=== PATIENT | female | born 1935 | race Caucasian/White ===

== ENCOUNTER → 2016-04-09 | Outpatient (CLI) | payer MEDICARE, BC ==
--- NOTE | 2016-04-10 10:43 | MM ---
Reason for exam: screening (asymptomatic). Last mammogram was performed 1 year and 1 month ago. History: Patient is postmenopausal and is nulliparous. Took estrogen for 21 years. Physical Findings: A clinical breast exam by your physician is recommended on an annual basis and results should be correlated with mammographic findings. MG Screening Mammo w CAD Bilateral CC and MLO view(s) were taken. Prior study comparison: March 21, 2015, bilateral MG 3d screening mammo w/cad. March 14, 2014, bilateral MG screening mammo w CAD. The breast tissue is heterogeneously dense. This may lower the sensitivity of mammography. Finding: There are typically benign calcifications. There is a chronic nodularity in the right breast. No significant changes in finding since March 21, 2015 and March 14, 2014. ASSESSMENT: Benign, BI-RAD 2 RECOMMENDATION: Routine screening mammogram of both breasts in 1 year.
== END | disposition home or self-care (01) ==
LOC: RADMAMWWP 13:51
PROVIDERS: ATTEND Family Medicine
DX: Z12.31 Encounter for screening mammogram for malignant neoplasm of breast (principal)

== ENCOUNTER → 2016-04-29 | Outpatient (CLI) | payer MEDICARE, BC ==
[2016-04-29 13:31] LABS: CH 30.2; CHCM 32.8; HCT 38.6 % (34.0-46.0); HDW 2.47; HGB 12.5 gm/dL (11.4-16.0); MCH 29.9 pg (25.0-35.0); MCHC 32.3 g/dL (31.0-37.0); MCV 92.6 fL (80.0-100.0); Mean Platelet Volume 9.6; RBC 4.17 m/uL (3.80-5.40); RDW 13.8 % (11.5-15.5); WBC 10.3 k/uL (3.8-10.6)
[2016-04-29 13:46] LABS: Appearance,Urine Clear (Clear); Bacteria,Urine Few /hpf; Bilirubin,Urine Negative (Negative); Glucose,Urine (UA) Negative (Negative); Ketones,Urine Negative (Negative); Leukocyte Esterase,Urine Large (Negative); Mucus,Urine Rare /hpf; Nitrite,Urine Negative (Negative); PH, Urine 5.5 (5.0-8.0); Particle Count 3304; Protein,Urine Trace (Negative); RBC,Urine 2 /hpf (0-5); Specific Gravity,Urine 1.012 (1.001-1.035); Squamous Epithelial Cell,Urine 1 /hpf (0-4); UA Billing (MACRO vs. MICRO) MICRO; Urobilinogen,Urine <2.0 mg/dL (<2.0); WBC,Urine 23 /hpf (0-5)
[2016-04-29 13:50] LABS: Anion Gap 12 mmol/L; Blood Urea Nitrogen 19 mg/dL (7-17); Calcium 9.8 mg/dL (8.4-10.2); Carbon Dioxide 27 mmol/L (22-30); Chloride 106 mmol/L (98-107); Glucose 107 mg/dL (74-99); Iron 57 ug/dL (37-170); Non-African American GFR(MDRD) 53 (>60 ml/min/1.73 sqM); Phosphorous 4.1 mg/dL (2.5-4.5); Potassium 4.7 mmol/L (3.5-5.1); Sodium 145 mmol/L (137-145); Uric Acid 6.8 mg/dL (3.7-7.4)
[2016-04-29 13:59] LABS: % Iron Saturation 16.3 % (20-50); Total Iron Binding Capacity 350 ug/dL (265-497)
== END | disposition home or self-care (01) ==
LOC: LABWHC1 12:41
PROVIDERS: ATTEND Nurse Practitioner Family
DX: N18.3 Chronic kidney disease, stage 3 (moderate) (principal); D64.9 Anemia, unspecified; N39.0 Urinary tract infection, site not specified; R80.9 Proteinuria, unspecified; E21.3 Hyperparathyroidism, unspecified; E55.9 Vitamin D deficiency, unspecified; M10.9 Gout, unspecified
CPT/HCPCS: 36415; 80048; 81001; 82043; 82306; 82728; 83540; 83550; 83735; 83970; 84100; 84550; 85027

== ENCOUNTER → 2016-12-02 | Outpatient (CLI) | payer MEDICARE, BC ==
--- NOTE | 2016-12-02 13:53 | US ---
EXAMINATION TYPE: US kidneys/renal and bladder DATE OF EXAM: 12/02/2016 COMPARISON: Prior in PACS CLINICAL HISTORY: N18.3 Stage 2 CKD. EXAM MEASUREMENTS: Right Kidney: 8.0 x 3.9 x 3.8 cm Left Kidney: 9.0 x 4.8 x 3.8 cm Right Kidney: Measuring smaller than the left. No hydronephrosis, no cystic or solid mass visualized Left Kidney: No hydronephrosis, no cystic or solid mass visualized Bladder: Not fully distended Bilateral Jets seen: No IMPRESSION: No evidence of hydronephrosis or nephrolithiasis. Cortical medullary differentiation is maintained wi th no cortical renal atrophy.
== END ==
LOC: RADUSWWP 12:56
PROVIDERS: ATTEND Internal Medicine
DX: N18.3 Chronic kidney disease, stage 3 (moderate) (principal)
CPT/HCPCS: 76770

== ENCOUNTER → 2017-05-19 | Outpatient (CLI) | payer MEDICARE, BC ==
--- NOTE | 2017-05-20 13:13 | MM ---
Reason for exam: screening (asymptomatic). Last mammogram was performed 1 year and 1 month ago. History: Patient is postmenopausal and is nulliparous. Took estrogen for 21 years. Physical Findings: A clinical breast exam by your physician is recommended on an annual basis and results should be correlated with mammographic findings. MG 3D Screening Mammo W/Cad Bilateral CC and MLO view(s) were taken. Prior study comparison: April 09, 2016, bilateral MG screening mammo w CAD. March 21, 2015, bilateral MG 3d screening mammo w/cad. The breast tissue is heterogeneously dense. This may lower the sensitivity of mammography. Stable benign calcifications. There is no discrete abnormality. No significant changes when compared with prior studies. ASSESSMENT: Benign, BI-RAD 2 RECOMMENDATION: Routine screening mammogram of both breasts in 1 year.
== END | disposition home or self-care (01) ==
LOC: RADMAMWWP 13:02
PROVIDERS: ATTEND Family Medicine
DX: Z12.31 Encounter for screening mammogram for malignant neoplasm of breast (principal)
CPT/HCPCS: 77063; 77067

== ENCOUNTER 2017-09-24 06:30 | Emergency (ER) | payer MEDICARE, BC ==
[2017-09-24 06:39] VITALS: RESP 18; TEMP 98
[2017-09-24 07:46] LABS: Basophils % (A) 0 %; Eosinophils # (A) 0.3 k/uL (0-0.7); Eosinophils % (A) 3 %; HCT 37.4 % (34.0-46.0); HGB 12.2 gm/dL (11.4-16.0); Lymphocytes # (A) 1.6 k/uL (1.0-4.8); Lymphocytes % (A) 15 %; MCH 31.8 pg (25.0-35.0); MCHC 32.5 g/dL (31.0-37.0); MCV 97.7 fL (80.0-100.0); Mean Platelet Volume 8.2; Monocytes # (A) 0.5 k/uL (0-1.0); Monocytes % (A) 5 %; Neutrophils # (A) 7.5 k/uL (1.3-7.7); Neutrophils % (A) 75 %; Platelet Count 241 k/uL (150-450); RBC 3.82 m/uL (3.80-5.40); RDW 13.7 % (11.5-15.5)
[2017-09-24 07:49] LABS: Appearance,Urine Clear (Clear); Bacteria,Urine Rare /hpf; Bilirubin,Urine Negative (Negative); Blood,Urine Negative (Negative); Color,Urine Light Yellow; Glucose,Urine (UA) Negative (Negative); Ketones,Urine Negative (Negative); Leukocyte Esterase,Urine Small (Negative); Mucus,Urine Rare /hpf; Nitrite,Urine Negative (Negative); Protein,Urine Negative (Negative); RBC,Urine <1 /hpf (0-5); Specific Gravity,Urine 1.007 (1.001-1.035); Squamous Epithelial Cell,Urine <1 /hpf (0-4); Urobilinogen,Urine <2.0 mg/dL (<2.0); WBC,Urine 1 /hpf (0-5)
[2017-09-24 07:57] LABS: Albumin 4.3 g/dL (3.5-5.0); Calcium 9.4 mg/dL (8.4-10.2); Potassium 4.7 mmol/L (3.5-5.1); Total Bilirubin 0.5 mg/dL (0.2-1.3); Total Protein 6.7 g/dL (6.3-8.2)
[2017-09-24] MEDS ORDERED: SODIUM CHLORIDE 0.9% 500 ML IV ONE (08:22)
--- NOTE | 2017-09-24 08:28 | ED ---
General Adult HPI - General Chief complaint: Upper Respiratory Infection Stated complaint: URI Time Seen by Provider: 09/24/17 07:07 Source: patient Mode of arrival: ambulatory Limitations: no limitations - History of Present Illness Initial comments: 82 years old female comes in with cold-like symptoms for last 34 days she said she has been coughing and she believes she had a cold but then now she was concerned about that she is not eating well she said she had one more water then she had a second third bottle of water which she didn't. Repeat she denies any headaches no neck stiffness no chest pain no shortness of breath no abdominal pain no flank pains. - Related Data Home Medications Medication Instructions Recorded Confirmed Levothyroxine Sodium [Synthroid] 112 mcg PO DAILY 01/08/14 09/24/17 Ranitidine HCl [Zantac] 150 mg PO BID 01/08/14 09/24/17 amLODIPine [Norvasc] 5 mg PO DAILY 01/08/14 09/24/17 Ascorbic Acid [Vitamin C] 500 mg PO DAILY 09/24/17 09/24/17 Aspirin EC [Ecotrin Low Dose] 81 mg PO DAILY 09/24/17 09/24/17 Carvedilol [Coreg] 12.5 mg PO BID 09/24/17 09/24/17 Cholecalciferol [Vitamin D3] 1,000 unit PO DAILY 09/24/17 09/24/17 Cyanocobalamin (Vitamin B-12) 1,000 mcg PO DAILY 09/24/17 09/24/17 [Vitamin B-12] Lisinopril [Zestril] 10 mg PO DAILY 09/24/17 09/24/17 Multivitamins, Thera [Multivitamin 1 tab PO DAILY 09/24/17 09/24/17 (formulary)] Pioglitazone [Actos] 15 mg PO DAILY 09/24/17 09/24/17 Pravastatin Sodium [Pravachol] 20 mg PO HS 09/24/17 09/24/17 Allergies Allergy/AdvReac Type Severity Reaction Status Date / Time orange juice Allergy Rash/Hives Verified 09/24/17 08:30 Sulfa (Sulfonamide Allergy Nausea & Verified 09/24/17 08:30 Antibiotics) Vomiting Review of Systems ROS Statement: Those systems with pertinent positive or pertinent negative responses have been documented in the HPI. ROS Other: All systems not noted in ROS Statement are negative. Past Medical History Past Medical History: Coronary Artery Disease (CAD), Diabetes Mellitus, GI Bleed , Hyperlipidemia, Hypertension, Thyroid Disorder History of Any Multi-Drug Resistant Organisms: None Reported Past Surgical History: Cholecystectomy, Hysterectomy Additional Past Surgical History / Comment(s): carotid artery Past Psychological History: No Psychological Hx Reported Smoking Status: Former smoker Past Alcohol Use History: Rare Past Drug Use History: None Reported General Exam - General Exam Comments Initial Comments: General: The patient is awake and alert, in no distress, and does not appear acutely ill. Skin: Skin is warm and dry and no rashes or lesions are noted. Eye: Pupils are equal, round and reactive to light, extra-ocular movements are intact; there is normal conjunctiva bilaterally. Ears, nose, mouth and throat: There are moist mucous membranes and no oral lesions. Neck: The neck is supple, there is no tenderness or JVD. Cardiovascular: There is a regular rate and rhythm. No murmur, rub or gallop is appreciated. Respiratory: To auscultation bilateral, no wheezing no rhonchi no distress respiratory du noticed Gastrointestinal: Soft, non-distended, non-tender abdomen without masses or organomegaly noted. There is no rebound or guarding present. Bowel sounds are unremarkable. Back: There is no tenderness to palpation in the midline. There is no obvious deformity. Musculoskeletal: Normal ROM, no tenderness, There is no pedal edema. There is no calf tenderness or swelling. No cords were appreciated. Neurological: CN II-XII intact, Cranial nerves III through XII are intact. There are no obvious motor or sensory deficits. Coordination appears grossly intact. Speech is normal. Psychiatric: Cooperative, appropriate mood & affect, normal judgment. Limitations: no limitations Course Vital Signs 09/24/17 06:34 Temperature 98 F Pulse Rate 70 Respiratory 18 Rate Blood Pressure 183/73 O2 Sat by Pulse 100 Oximetry KG revealed slightly elevated troponin 1.23 noticed blood pressure was elevated patient does see Dr. Lal he wanted to see Dr. Lal she was hydrated in the ER and was advised to drink enough fluids, her blood pressure was noted to be elevated she does take Norvasc and lisinopril and carvedilol she plans to take him and she gets home EKG Findings - EKG Comments: EKG Findings:: I am EKG is normal sinus rhythm ventricular rate 76 OR interval is 174 QRS duration is 72 QT/QTC 352/396. This EKG does not reveal any ST elevation or ST depression Medical Decision Making - Lab Data Result diagrams: 09/24/17 07:27 09/24/17 07:27 Lab Results 09/24/17 09/24/17 09/24/17 Range/Units 06:50 07:21 07:27 WBC 10.0 (3.8-10.6) k/uL RBC 3.82 (3.80-5.40) m/uL Hgb 12.2 (11.4-16.0) gm/dL Hct 37.4 (34.0-46.0) % MCV 97.7 (80.0-100.0) fL MCH 31.8 (25.0-35.0) pg MCHC 32.5 (31.0-37.0) g/dL RDW 13.7 (11.5-15.5) % Plt Count 241 (150-450) k/uL Neutrophils % 75 % Lymphocytes % 15 % Monocytes % 5 % Eosinophils % 3 % Basophils % 0 % Neutrophils # 7.5 (1.3-7.7) k/uL Lymphocytes # 1.6 (1.0-4.8) k/uL Monocytes # 0.5 (0-1.0) k/uL Eosinophils # 0.3 (0-0.7) k/uL Basophils # 0.0 (0-0.2) k/uL Sodium (137-145) mmol/L Potassium (3.5-5.1) mmol/L Chloride (98-107) mmol/L Carbon Dioxide (22-30) mmol/L Anion Gap mmol/L BUN (7-17) mg/dL Creatinine (0.52-1.04) mg/dL Est GFR (CKD-EPI)AfAm (>60 ml/min/1.73 sqM) Est GFR (CKD-EPI)NonAf (>60 ml/min/1.73 sqM) Glucose (74-99) mg/dL Calcium (8.4-10.2) mg/dL Total Bilirubin (0.2-1.3) mg/dL AST (14-36) U/L ALT (9-52) U/L Alkaline Phosphatase (38-126) U/L Total Protein (6.3-8.2) g/dL Albumin (3.5-5.0) g/dL Urine Color Light Yellow Urine Appearance Clear (Clear) Urine pH 5.0 (5.0-8.0) Ur Specific [place] 1.007 (1.001-1.035) Urine Protein Negative (Negative) Urine Glucose (UA) Negative (Negative) Urine Ketones Negative (Negative) Urine Blood Negative (Negative) Urine Nitrite Negative (Negative) Urine Bilirubin Negative (Negative) Urine Urobilinogen <2.0 (<2.0) mg/dL Ur Leukocyte Esterase Small H (Negative) Urine RBC <1 (0-5) /hpf Urine WBC 1 (0-5) /hpf Ur Squamous Epith Cells <1 (0-4) /hpf Urine Bacteria Rare H (None) /hpf Urine Mucus Rare H (None) /hpf Influenza Type A RNA Not Detected (Not Detectd) Influenza Type B (PCR) Not Detected (Not Detectd) 09/24/17 Range/Units 07:27 WBC (3.8-10.6) k/uL RBC (3.80-5.40) m/uL Hgb (11.4-16.0) gm/dL Hct (34.0-46.0) % MCV (80.0-100.0) fL MCH (25.0-35.0) pg MCHC (31.0-37.0) g/dL RDW (11.5-15.5) % Plt Count (150-450) k/uL Neutrophils % % Lymphocytes % % Monocytes % % Eosinophils % % Basophils % % Neutrophils # (1.3-7.7) k/uL Lymphocytes # (1.0-4.8) k/uL Monocytes # (0-1.0) k/uL Eosinophils # (0-0.7) k/uL Basophils # (0-0.2) k/uL Sodium 141 (137-145) mmol/L Potassium 4.7 (3.5-5.1) mmol/L Chloride 105 (98-107) mmol/L Carbon Dioxide 24 (22-30) mmol/L Anion Gap 12 mmol/L BUN 32 H (7-17) mg/dL Creatinine 1.23 H (0.52-1.04) mg/dL Est GFR (CKD-EPI)AfAm 48 (>60 ml/min/1.73 sqM) Est GFR (CKD-EPI)NonAf 41 (>60 ml/min/1.73 sqM) Glucose 120 H (74-99) mg/dL Calcium 9.4 (8.4-10.2) mg/dL Total Bilirubin 0.5 (0.2-1.3) mg/dL AST 18 (14-36) U/L ALT 30 (9-52) U/L Alkaline Phosphatase 75 (38-126) U/L Total Protein 6.7 (6.3-8.2) g/dL Albumin 4.3 (3.5-5.0) g/dL Urine Color Urine Appearance (Clear) Urine pH (5.0-8.0) Ur Specific [place] (1.001-1.035) Urine Protein (Negative) Urine Glucose (UA) (Negative) Urine Ketones (Negative) Urine Blood (Negative) Urine Nitrite (Negative) Urine Bilirubin (Negative) Urine Urobilinogen (<2.0) mg/dL Ur Leukocyte Esterase (Negative) Urine RBC (0-5) /hpf Urine WBC (0-5) /hpf Ur Squamous Epith Cells (0-4) /hpf Urine Bacteria (None) /hpf Urine Mucus (None) /hpf Influenza Type A RNA (Not Detectd) Influenza Type B (PCR) (Not Detectd) Disposition Clinical Impression: Renal insufficiency, Hypertension Disposition: HOME SELF-CARE Condition: Good Instructions: Chronic Kidney Disease (ED) Is patient prescribed a controlled substance at d/c from ED?: No Referrals: Mesfin Solis DO [Primary Care Provider] - 1-2 days America Lal MD [STAFF PHYSICIAN] - 1-2 days
--- NOTE | 2017-09-24 08:57 | XR ---
EXAMINATION TYPE: XR chest 2V DATE OF EXAM: 09/24/2017 COMPARISON: 01/08/2014 INDICATION: Pain TECHNIQUE: Frontal and lateral views of the chest are obtained. FINDINGS: The heart size is normal. The pulmonary vasculature is normal. The lungs are clear. IMPRESSION: 1. No acute pulmonary process.
[2017-09-24 10:11] VITALS: BP 161/70; PULSE 69
== END 2017-09-24 10:11 | disposition home or self-care (01) ==
LOC: EC 06:30
DX: I10 Essential (primary) hypertension (principal); N28.9 Disorder of kidney and ureter, unspecified; I25.10 Atherosclerotic heart disease of native coronary artery without angina pectoris; E11.9 Type 2 diabetes mellitus without complications; E78.5 Hyperlipidemia, unspecified; E07.9 Disorder of thyroid, unspecified; Z79.82 Long term (current) use of aspirin; Z79.02 Long term (current) use of antithrombotics/antiplatelets; Z79.84 Long term (current) use of oral hypoglycemic drugs; Z79.899 Other long term (current) drug therapy; Z91.018 Allergy to other foods; Z88.2 Allergy status to sulfonamides; Z87.891 Personal history of nicotine dependence
CPT/HCPCS: 36415; 71046; 80053; 81001; 85025; 87502; 93005; 96360; 99284

== ENCOUNTER → 2018-05-24 | Outpatient (CLI) | payer MEDICARE, BC ==
--- NOTE | 2018-05-25 08:44 | MM ---
Reason for exam: screening (asymptomatic). Last mammogram was performed 1 year ago. History: Patient is postmenopausal and is nulliparous. Took estrogen for 21 years. Physical Findings: A clinical breast exam by your physician is recommended on an annual basis and results should be correlated with mammographic findings. MG 3D Screening Mammo W/Cad Bilateral CC and MLO view(s) were taken. Prior study comparison: May 19, 2017, bilateral MG 3d screening mammo w/cad. April 09, 2016, bilateral MG screening mammo w CAD. The breast tissue is heterogeneously dense. This may lower the sensitivity of mammography. There are benign appearing round circumscribed right breast masses back to 2013. Benign appearing bilateral calcifications. No suspicious abnormality. No significant changes when compared with prior studies. ASSESSMENT: Benign, BI-RAD 2 RECOMMENDATION: Routine screening mammogram of both breasts in 1 year.
== END ==
LOC: RADMAMWWP 11:27
PROVIDERS: ATTEND Family Medicine
DX: Z12.31 Encounter for screening mammogram for malignant neoplasm of breast (principal)
CPT/HCPCS: 77063; 77067

== ENCOUNTER → 2018-05-25 | Outpatient (CLI) | payer MEDICARE, BC ==
--- NOTE | 2018-05-25 16:30 | US ---
EXAMINATION TYPE: US kidneys/renal and bladder DATE OF EXAM: 05/25/2018 COMPARISON: 07/21/2017 CLINICAL HISTORY: N18.3 CKD stage 3. Diabetic, patient states no pain EXAM MEASUREMENTS: Right Kidney: 8.2 x 3.9 x 4.1 cm Left Kidney: 8.9 x 3.7 x 5.0 cm Right Kidney: Medial anechoic lesion seen at hilum - 1.6 x 0.8 cm. Nonshadowing echogenic focus visu alized = 0.6 cm. This was not identified previously. Kidney Appears small in size. Left Kidney: Appears small in size. No hydronephrosis or masses seen. Bladder: distended, wnl Bilateral Jets seen IMPRESSION: 1. Echogenic foci without hydronephrosis right kidney may be a nonobstructing renal stone within the renal pelvis..
== END | disposition home or self-care (01) ==
LOC: RADUSWWP 14:53
PROVIDERS: ATTEND Internal Medicine Nephrology
DX: N18.3 Chronic kidney disease, stage 3 (moderate) (principal)
CPT/HCPCS: 76770

== ENCOUNTER 2018-09-20 20:45 | Inpatient (IN) | payer MEDICARE, BC ==
[2018-09-20] MEDS ORDERED: MORPHINE SULFATE 4 MG/ML SYRINGE IV STA (21:27)
--- NOTE | 2018-09-20 21:31 | ED ---
Fall HPI - General Chief Complaint: Fall Stated Complaint: Fall, Back Pain Time Seen by Provider: 09/20/18 21:12 Source: patient, EMS Mode of arrival: EMS - History of Present Illness Initial Comments: This patient is an 83-year-old woman who presents to be evaluated for back inj ury. She states it feels like her back went out. The initial injury was a fall that occurred on Wednesday. She states that she lost her balance and went down onto her buttocks. She initially had a little bit of pain but it was not severe. She states on the following day and an thereafter she started having severe pain any time she tried to get up. She therefore has not been moving around much. She indicates the low back. She does not have any radiation of pain to the legs. There is no weakness of the legs. She denies any change in bladder or bowel function. No other injuries in the fall. MD Complaint: fall -: days(s) Fall From: standing When Fall Occurred: # days [employer] (3) Place Fall Occurred: home Loss of Consciousness: none Prolonged Down Time?: no Symptoms Prior to Fall: none Location: back Severity: severe Quality: sharp Context: tripped/slipped - Related Data Home Medications Medication Instructions Recorded Confirmed Levothyroxine Sodium [Synthroid] 112 mcg PO DAILY 01/08/14 09/20/18 Ranitidine HCl [Zantac] 150 mg PO BID 01/08/14 09/20/18 amLODIPine [Norvasc] 5 mg PO DAILY 01/08/14 09/20/18 Aspirin EC [Ecotrin Low Dose] 81 mg PO DAILY 09/24/17 09/20/18 Carvedilol [Coreg] 12.5 mg PO BID 09/24/17 09/20/18 Cyanocobalamin (Vitamin B-12) 1,000 mcg PO DAILY 09/24/17 09/20/18 [Vitamin B-12] Lisinopril [Zestril] 10 mg PO DAILY 09/24/17 09/20/18 Pioglitazone [Actos] 15 mg PO DAILY 09/24/17 09/20/18 Atorvastatin [Lipitor] 20 mg PO HS 09/20/18 09/20/18 Previous Rx's Medication Instructions Recorded Methocarbamol [Robaxin-750] 750 mg PO TID PRN #30 tablet 09/21/18 Allergies Allergy/AdvReac Type Severity Reaction Status Date / Time orange juice Allergy Rash/Hives Verified 09/24/17 08:30 Sulfa (Sulfonamide Allergy Nausea & Verified 09/24/17 08:30 Antibiotics) Vomiting Review of Systems ROS Statement: Those systems with pertinent positive or pertinent negative responses have been documented in the HPI. ROS Other: All systems not noted in ROS Statement are negative. Constitutional: Denies: fever, chills Respiratory: Denies: cough, dyspnea Cardiovascular: Denies: chest pain, palpitations, syncope Gastrointestinal: Denies: abdominal pain, vomiting, diarrhea, constipation Genitourinary: Denies: dysuria, hematuria Musculoskeletal: Reports: back pain Skin: Denies: rash Neurological: Denies: headache, weakness, numbness, paresthesias Past Medical History Past Medical History: Coronary Artery Disease (CAD), Diabetes Mellitus, GI Bleed, Hyperlipidemia, Hypertension, Thyroid Disorder History of Any Multi-Drug Resistant Organisms: None Reported Past Surgical History: Cholecystectomy, Hysterectomy Additional Past Surgical History / Comment(s): carotid artery Past Psychological History: No Psychological Hx Reported Smoking Status: Former smoker Past Alcohol Use History: Rare Past Drug Use History: None Reported General Exam General appearance: alert, in no apparent distress Head exam: Present: atraumatic, normocephalic Eye exam: Present: normal appearance. Absent: scleral icterus, conjunctival injection Neck exam: Present: normal inspection, full ROM. Absent: tenderness Respiratory exam: Present: normal lung sounds bilaterally. Absent: respiratory distress, wheezes, rales, rhonchi, stridor, chest wall tenderness Cardiovascular Exam: Present: regular rate, normal rhythm, normal heart sounds. Absent: systolic murmur, diastolic murmur, rubs, gallop GI/Abdominal exam: Present: soft. Absent: distended, tenderness, guarding, rebound, rigid, mass Neurological exam: Present: alert, oriented X3. Absent: motor sensory deficit Skin exam: Present: warm, dry, intact, normal color. Absent: rash Course Vital Signs 09/20/18 09/20/18 09/20/18 20:51 21:00 21:10 Temperature 98.2 F Pulse Rate 68 71 71 Respiratory 16 23 15 Rate Blood Pressure 186/89 179/77 O2 Sat by Pulse 94 L 91 L 93 L Oximetry 09/20/18 09/20/18 09/20/18 21:50 22:10 22:40 Temperature Pulse Rate 71 67 70 Respiratory 15 17 15 Rate Blood Pressure 154/62 146/47 159/69 O2 Sat by Pulse 93 L 95 93 L Oximetry 09/21/18 03:10 Temperature Pulse Rate Respiratory 16 Rate Blood Pressure O2 Sat by Pulse Oximetry Medical Decision Making - Medical Decision Making During the patient's stay in the department, she initially began to have some episodes of loose bowel movements. Patient stated that she had taken a stool softener before coming here. Patient continued to have nausea and some vomiting and bowel movements. The patient did not have relief with medications will be admitted for control of vomiting. - Lab Data Result diagrams: 09/20/18 21:47 09/20/18 21:47 Lab Results 09/20/18 09/20/18 09/21/18 Range/Units 21:47 21:47 01:09 WBC 11.0 H (3.8-10.6) k/uL RBC 3.99 (3.80-5.40) m/uL Hgb 12.3 (11.4-16.0) gm/dL Hct 38.2 (34.0-46.0) % MCV 95.9 (80.0-100.0) fL MCH 30.8 (25.0-35.0) pg MCHC 32.1 (31.0-37.0) g/dL RDW 13.6 (11.5-15.5) % Plt Count 352 (150-450) k/uL Neutrophils % 71 % Lymphocytes % 18 % Monocytes % 8 % Eosinophils % 2 % Basophils % 0 % Neutrophils # 7.9 H (1.3-7.7) k/uL Lymphocytes # 2.0 (1.0-4.8) k/uL Monocytes # 0.8 (0-1.0) k/uL Eosinophils # 0.2 (0-0.7) k/uL Basophils # 0.0 (0-0.2) k/uL Sodium 138 (137-145) mmol/L Potassium 4.4 (3.5-5.1) mmol/L Chloride 101 (98-107) mmol/L Carbon Dioxide 28 (22-30) mmol/L Anion Gap 9 mmol/L BUN 27 H (7-17) mg/dL Creatinine 0.94 (0.52-1.04) mg/dL Est GFR (CKD-EPI)AfAm 66 (>60 ml/min/1.73 sqM) Est GFR (CKD-EPI)NonAf 57 (>60 ml/min/1.73 sqM) Glucose 165 H (74-99) mg/dL POC Glucose (mg/dL) 160 H (75-99) mg/dL POC Glu [place] [employer]man ID Carmine Parks Calcium 9.3 (8.4-10.2) mg/dL Total Bilirubin 0.5 (0.2-1.3) mg/dL AST 25 (14-36) U/L ALT 25 (9-52) U/L Alkaline Phosphatase 98 (38-126) U/L Creatine Kinase 87 (30-135) U/L Total Protein 7.3 (6.3-8.2) g/dL Albumin 4.3 (3.5-5.0) g/dL 09/21/18 Range/Units 06:35 WBC (3.8-10.6) k/uL RBC (3.80-5.40) m/uL Hgb (11.4-16.0) gm/dL Hct (34.0-46.0) % MCV (80.0-100.0) fL MCH (25.0-35.0) pg MCHC (31.0-37.0) g/dL RDW (11.5-15.5) % Plt Count (150-450) k/uL Neutrophils % % Lymphocytes % % Monocytes % % Eosinophils % % Basophils % % Neutrophils # (1.3-7.7) k/uL Lymphocytes # (1.0-4.8) k/uL Monocytes # (0-1.0) k/uL Eosinophils # (0-0.7) k/uL Basophils # (0-0.2) k/uL Sodium (137-145) mmol/L Potassium (3.5-5.1) mmol/L Chloride (98-107) mmol/L Carbon Dioxide (22-30) mmol/L Anion Gap mmol/L BUN (7-17) mg/dL Creatinine (0.52-1.04) mg/dL Est GFR (CKD-EPI)AfAm (>60 ml/min/1.73 sqM) Est GFR (CKD-EPI)NonAf (>60 ml/min/1.73 sqM) Glucose (74-99) mg/dL POC Glucose (mg/dL) 144 H (75-99) mg/dL POC Glu [place] [employer]man ID Shalini Garner Calcium (8.4-10.2) mg/dL Total Bilirubin (0.2-1.3) mg/dL AST (14-36) U/L ALT (9-52) U/L Alkaline Phosphatase (38-126) U/L Creatine Kinase (30-135) U/L Total Protein (6.3-8.2) g/dL Albumin (3.5-5.0) g/dL Disposition Clinical Impression: Fall, Back pain, Diarrhea, Intractable vomiting Disposition: ADMITTED IP TO THIS HOSP Condition: Fair Is patient prescribed a controlled substance at d/c from ED?: No
[2018-09-20 21:56] LABS: Basophils % (A) 0 %; Eosinophils # (A) 0.2 k/uL (0-0.7); Eosinophils % (A) 2 %; HCT 38.2 % (34.0-46.0); HGB 12.3 gm/dL (11.4-16.0); Lymphocytes % (A) 18 %; MCH 30.8 pg (25.0-35.0); MCHC 32.1 g/dL (31.0-37.0); MCV 95.9 fL (80.0-100.0); Mean Platelet Volume 8.2; Monocytes # (A) 0.8 k/uL (0-1.0); Monocytes % (A) 8 %; Neutrophils # (A) 7.9 k/uL (1.3-7.7); Neutrophils % (A) 71 %; Platelet Count 352 k/uL (150-450); RBC 3.99 m/uL (3.80-5.40); RDW 13.6 % (11.5-15.5)
--- NOTE | 2018-09-20 21:56 | XR ---
EXAMINATION TYPE: XR pelvis AP view DATE OF EXAM: 09/20/2018 COMPARISON: NONE HISTORY: Fall. Pain. TECHNIQUE: Single view FINDINGS: The pelvic ring appears intact. Proximal femurs are intact. There is vascular calcification . Sacroiliac joints are intact. IMPRESSION: No acute abnormality of the pelvis.
--- NOTE | 2018-09-20 21:57 | XR ---
EXAMINATION TYPE: XR lumbar spine 2 or 3V DATE OF EXAM: 09/20/2018 COMPARISON: NONE HISTORY: Fall. Back pain. TECHNIQUE: 3 views FINDINGS: Lumbar vertebra have fairly normal alignment. There is degenerative disc space narrowing th roughout the lumbar spine. There is no compression fracture. Abdominal aorta is atheromatous. Sacroil iac joints are intact. IMPRESSION: Mild degenerative disc changes. No fracture.
--- NOTE | 2018-09-20 21:59 | XR ---
EXAMINATION TYPE: XR thoracic spine complete DATE OF EXAM: 09/20/2018 COMPARISON: 01/08/2014 HISTORY: Back pain TECHNIQUE: 3 views FINDINGS: Thoracic vertebra have normal alignment. I see no compression fracture. There is no sign of paraspinal mass. Posterior elements are intact. IMPRESSION: Negative exam. No change compared to old exam. No fracture.
[2018-09-20 22:05] LABS: Albumin 4.3 g/dL (3.5-5.0); Calcium 9.3 mg/dL (8.4-10.2); Potassium 4.4 mmol/L (3.5-5.1); Total Bilirubin 0.5 mg/dL (0.2-1.3); Total Protein 7.3 g/dL (6.3-8.2)
--- NOTE | 2018-09-20 23:27 | XR ---
EXAM: XR Chest, 2 Views CLINICAL HISTORY: Pain TECHNIQUE: Frontal and lateral views of the chest. COMPARISON: No relevant prior studies available. FINDINGS: Lungs: Unremarkable. No consolidation. Pleural space: Unremarkable. No pneumothorax. Heart: Mild enlargement heart. Mediastinum: Unremarkable. Bones/joints: Degenerative changes of the osseous structures. IMPRESSION: No acute findings.
[2018-09-20] MEDS ORDERED: ONDANSETRON 4 MG/2 ML VIAL IVP STA (23:44)
[2018-09-21 01:11] LABS: Glucose,Whole Blood 160 mg/dL (75-99)
[2018-09-21] MEDS ORDERED: NALOXONE 0.4 MG/ML 1 ML VIAL IV PRN (02:43)
[2018-09-21] MEDS ORDERED: SODIUM CHLORIDE 0.9% 1,000 ML IV SCH (02:45)
[2018-09-21] MEDS ORDERED: PROCHLORPERAZINE 10 MG TAB PO STA (02:45)
[2018-09-21 03:37] VITALS: BMI 28.7
[2018-09-21 06:36] LABS: Glucose,Whole Blood 144 mg/dL (75-99)
[2018-09-21 11:37] LABS: Glucose,Whole Blood 136 mg/dL (75-99)
[2018-09-21] MEDS ORDERED: ONDANSETRON 4 MG/2 ML VIAL IVP PRN (13:19)
[2018-09-21] MEDS ORDERED: LEVOTHYROXINE 112 MCG TAB PO SCH (13:30)
[2018-09-21] MEDS ORDERED: ASPIRIN 81 MG PO SCH (13:30)
[2018-09-21] MEDS ORDERED: FAMOTIDINE 20 MG TAB PO SCH ×2 (13:30→14:00)
[2018-09-21] MEDS ORDERED: amLODIPine 5 MG TAB PO SCH (13:30)
[2018-09-21 16:41] LABS: Glucose,Whole Blood 138 mg/dL (75-99)
[2018-09-21 16:43] VITALS: BP 159/70; PULSE 69; RESP 18; TEMP 98.6
[2018-09-21] MEDS ORDERED: CARVEDILOL 12.5 MG TAB PO SCH (17:30)
[2018-09-21] MEDS ORDERED: ATORVASTATIN 20 MG TAB PO SCH (21:00)
[2018-09-22] MEDS ORDERED: CYANOCOBALAMIN 500 MCG TAB PO SCH (09:00)
[2018-09-22] MEDS ORDERED: LISINOPRIL 10 MG TAB PO SCH (09:00)
[2018-09-22] MEDS ORDERED: PIOGLITAZONE 15 MG TAB PO SCH (09:00)
--- NOTE | 2018-09-23 16:33 | P.HPIM ---
History of Present Illness H&P Date: 09/21/18 Chief Complaint: Back pain Patient is a 83-year-old female with a known history of hypertension, hyperlipidemia, diabetes type 2 and hypothyroidism came to the hospital with the complaints of fall and back injury. Patient says that she lost her balance and went down on her buttocks mainly right buttock. Since then she's been having sharp pain. She's been having pain whenever she tries to get up and has not been moving much. No radiation of the pain no shooting down pain along the extremities. No weakness. No bowel or bladder incontinence. No perineal anesthesia. No fever no chills. Patient came to the hospital due to disabling pain. Chest x-ray showed no acute findings neck X-ray of the pelvis AP view showed no acute abnormality of the pelvis. X-ray of the lumbar spine showed mild degenerative disc changes. No fractures. X-ray thoracic spine showed no changes compared to old exam. No fracture. WBC 11.7 and BUN 27 creatinine within normal limits. All other laboratory data reviewed. Review of Systems Constitutional: Patient denies any fever or chills . No generalized weakness or weight loss. Abdomen: Patient denied nausea vomiting and diarrhea and abdominal pain. Cardiovascular: Patient denies any chest pain or short of breath no palpitations. Respiratory: patient denied any cough is from production. No shortness of breath Neurologic: Patient denied any numbness or tingling headache. Musculoskeletal: Patient denies any complaints of joint swelling or deformity. Lower back pain and sacral pain and right buttock pain. Skin: Negative Psychiatric: Negative Endocrine: No heat or cold intolerance. No recent weight gain. Genitourinary: No dysuria or hematuria. All other 14 point ROS negative except the above Past Medical History Past Medical History: Coronary Artery Disease (CAD), Diabetes Mellitus, GI Bleed, Hyperlipidemia, Hypertension, Thyroid Disorder History of Any Multi-Drug Resistant Organisms: None Reported Past Surgical History: Cholecystectomy, Hysterectomy Additional Past Surgical History / Comment(s): carotid artery Past Anesthesia/Blood Transfusion Reactions: No Reported Reaction Past Psychological History: No Psychological Hx Reported Smoking Status: Former smoker Past Alcohol Use History: Rare Past Drug Use History: None Reported Medications and Allergies Home Medications Medication Instructions Recorded Confirmed Type Levothyroxine Sodium [Synthroid] 112 mcg PO DAILY 01/08/14 09/20/18 History Ranitidine HCl [Zantac] 150 mg PO BID 01/08/14 09/20/18 History amLODIPine [Norvasc] 5 mg PO DAILY 01/08/14 09/20/18 History Aspirin EC [Ecotrin Low Dose] 81 mg PO DAILY 09/24/17 09/20/18 History Carvedilol [Coreg] 12.5 mg PO BID 09/24/17 09/20/18 History Cyanocobalamin (Vitamin B-12) 1,000 mcg PO DAILY 09/24/17 09/20/18 History [Vitamin B-12] Lisinopril [Zestril] 10 mg PO DAILY 09/24/17 09/20/18 History Pioglitazone [Actos] 15 mg PO DAILY 09/24/17 09/20/18 History Atorvastatin [Lipitor] 20 mg PO HS 09/20/18 09/20/18 History Methocarbamol [Robaxin-750] 750 mg PO TID PRN #30 tablet 09/21/18 Rx Allergies Allergy/AdvReac Type Severity Reaction Status Date / Time orange juice Allergy Rash/Hives Verified 09/24/17 08:30 Sulfa (Sulfonamide Allergy Nausea & Verified 09/24/17 08:30 Antibiotics) Vomiting Physical Exam Vitals: Vital Signs Temp Pulse Pulse Resp BP BP Pulse Ox 09/21/18 12:00 70 16 09/21/18 08:00 97.7 F 70 16 163/79 96 09/21/18 03:37 17 09/21/18 03:10 16 09/20/18 22:40 70 15 159/69 93 L 09/20/18 22:10 67 17 146/47 95 09/20/18 21:50 71 15 154/62 93 L 09/20/18 21:10 71 15 179/77 93 L 09/20/18 21:00 71 23 91 L 09/20/18 20:51 98.2 F 68 16 186/89 94 L Intake and Output 09/20/18 09/21/18 09/21/18 22:59 06:59 14:59 Other: Voiding Method Toilet Toilet Diaper Diaper Incontinent # Voids 1 1 Weight 71.2 kg PHYSICAL EXAMINATION: Patient is lying in the bed comfortably, no acute distress, awake alert and oriented.. HEENT: Normocephalic. Neck is supple. Pupils reactive. Nostrils clear. Oral cavity is moist. Ears reveal no drainage. Neck reveals no JVD, carotid bruits, or thyromegaly. CHEST EXAMINATION: Trachea is central. Symmetrical expansion. Lung carroll clear to auscultation and percussion. CARDIAC: Normal S1, S2 with no gallops. No murmurs ABDOMEN: Soft. Bowel sounds normal. No organomegaly. No abdominal bruits. Extremities: reveal no edema. No clubbing or cyanosis Neurologically awake, alert, oriented x3 with well-coordinated movements. No focal deficits noted Skin: No rash or skin lesions. Psychiatric: Coperative. Nonsuicidal Musculoskeletal: No joint swelling or deformity. Normal range of motion. Results CBC & Chem 7: 09/20/18 21:47 09/20/18 21:47 Labs: Abnormal Lab Results - Last 24 Hours (Table) 09/20/18 09/20/18 09/21/18 Range/Units 21:47 21:47 01:09 WBC 11.0 H (3.8-10.6) k/uL Neutrophils # 7.9 H (1.3-7.7) k/uL BUN 27 H (7-17) mg/dL Glucose 165 H (74-99) mg/dL POC Glucose (mg/dL) 160 H (75-99) mg/dL 09/21/18 09/21/18 Range/Units 06:35 11:33 WBC (3.8-10.6) k/uL Neutrophils # (1.3-7.7) k/uL BUN (7-17) mg/dL Glucose (74-99) mg/dL POC Glucose (mg/dL) 144 H 136 H (75-99) mg/dL Thrombosis Risk Factor Assmnt - DVT/VTE Prophylaxis DVT/VTE Prophylaxis: Pharmacologic Prophylaxis ordered - Choose All That Apply Each Risk Factor Represents 3 Points: Age 75 years or older Thrombosis Risk Factor Assessment Total Risk Factor Score: 3 Thrombosis Risk Factor Assessment Level: Moderate Risk Assessment and Plan Assessment: Lower back and bilateral buttock pain mainly right buttock pain. Status post fall. Likely muscle contusion. No fracture noted Coronary artery disease History of carotid artery surgery Diabetes type 2 Hypertension next and hypothyroidism Previous history of smoking DVT prophylaxis with heparin subcu Plan: patient be continued on pain management. Continue the home medications and follow closely. Encourage incentive spirometry. Ambulation and DVT pro phylaxis. Further recommendations based on the clinical course. Time with Patient: Greater than 30
--- NOTE | 2018-09-23 16:35 | P.DS ---
Providers Date of admission: 09/21/18 06:48 Expected date of discharge: 09/21/18 Attending physician: Thania Nathan Primary care physician: [facility] Course: Discharge diagnosis Lower back and bilateral buttock pain mainly right buttock pain. Status post fall. Likely muscle contusion. No fracture noted Coronary artery disease History of carotid artery surgery Diabetes type 2 Hypertension next and hypothyroidism Previous history of smoking DVT prophylaxis with heparin subcu Hospital course Patient is a 83-year-old female with a known history of hypertension, hyperlipidemia, diabetes type 2 and hypothyroidism came to the hospital with the complaints of fall and back injury. Patient says that she lost her balance and went down on her buttocks mainly right buttock. Since then she's been having sharp pain. She's been having pain whenever she tries to get up and has not been moving much. No radiation of the pain no shooting down pain along the extremities. No weakness. No bowel or bladder incontinence. No perineal anesthesia. No fever no chills. Patient came to the hospital due to disabling pain. Chest x-ray showed no acute findings neck X-ray of the pelvis AP view showed no acute abnormality of the pelvis. X-ray of the lumbar spine showed mild degenerative disc changes. No fractures. X-ray thoracic spine showed no changes compared to old exam. No fracture. WBC 11.7 and BUN 27 creatinine within normal limits. All other laboratory data reviewed. patient be continued on pain management with [place] and Robaxin.. Continued the home medications. Encourage incentive spirometry. Ambulation and DVT prophylaxis. Patient did improve clinically and is able to ambulating to the bathroom without support. Symptomatically improved. Stable to be discharged home. All of his primary care physician X3 to 5 days. Discharge physical examination was done and vitals reviewed. Patient Condition at Discharge: Fair Plan - Discharge Summary Discharge Rx Participant: Yes New Discharge Prescriptions: New Methocarbamol [Robaxin-750] 750 mg PO TID PRN #30 tablet PRN Reason: pain Continue Levothyroxine Sodium [Synthroid] 112 mcg PO DAILY amLODIPine [Norvasc] 5 mg PO DAILY Ranitidine HCl [Zantac] 150 mg PO BID Pioglitazone [Actos] 15 mg PO DAILY Lisinopril [Zestril] 10 mg PO DAILY Cyanocobalamin (Vitamin B-12) [Vitamin B-12] 1,000 mcg PO DAILY Carvedilol [Coreg] 12.5 mg PO BID Aspirin EC [Ecotrin Low Dose] 81 mg PO DAILY Atorvastatin [Lipitor] 20 mg PO HS Discharge Medication List Levothyroxine Sodium [Synthroid] 112 mcg PO DAILY 01/08/14 [History] Ranitidine HCl [Zantac] 150 mg PO BID 01/08/14 [History] amLODIPine [Norvasc] 5 mg PO DAILY 01/08/14 [History] Aspirin EC [Ecotrin Low Dose] 81 mg PO DAILY 09/24/17 [History] Carvedilol [Coreg] 12.5 mg PO BID 09/24/17 [History] Cyanocobalamin (Vitamin B-12) [Vitamin B-12] 1,000 mcg PO DAILY 09/24/17 [History] Lisinopril [Zestril] 10 mg PO DAILY 09/24/17 [History] Pioglitazone [Actos] 15 mg PO DAILY 09/24/17 [History] Atorvastatin [Lipitor] 20 mg PO HS 09/20/18 [History] Methocarbamol [Robaxin-750] 750 mg PO TID PRN #30 tablet 09/21/18 [Rx] Follow up Appointment(s)/Referral(s): Mesfin Solis DO [Primary Care Provider] - 1-2 days Patient Instructions/Handouts: Fall Prevention for Older Adults (ED) Discharge Disposition: HOME SELF-CARE
== END 2018-09-21 17:09 | disposition home or self-care (01) | DRG 552 ==
LOC: EC 20:45 → 1SOBS 09-21 02:45 → OBSVTOIN 09-21 06:48
PROVIDERS: ADMIT Hospitalist; ATTEND Hospitalist
DX: M54.9 Dorsalgia, unspecified (principal); E11.9 Type 2 diabetes mellitus without complications; E78.5 Hyperlipidemia, unspecified; I10 Essential (primary) hypertension; M51.36 Other intervertebral disc degeneration, lumbar region; S30.0XXA Contusion of lower back and pelvis, initial encounter; E03.9 Hypothyroidism, unspecified; I25.10 Atherosclerotic heart disease of native coronary artery without angina pectoris; R11.2 Nausea with vomiting, unspecified; R19.7 Diarrhea, unspecified; Z79.84 Long term (current) use of oral hypoglycemic drugs; Z79.899 Other long term (current) drug therapy; Z79.82 Long term (current) use of aspirin; Z79.890 Hormone replacement therapy; Z87.891 Personal history of nicotine dependence; Z90.710 Acquired absence of both cervix and uterus; Z88.2 Allergy status to sulfonamides; Z91.018 Allergy to other foods; Z90.49 Acquired absence of other specified parts of digestive tract; W01.0XXA Fall on same level from slipping, tripping and stumbling without subsequent striking against object, initial encounter; Y92.9 Unspecified place or not applicable
CPT/HCPCS: 36415; 71046; 72072; 72100; 72170; 80053; 82550; 85025; 96374; 96375; 99285

== ENCOUNTER → 2019-01-19 | Outpatient (CLI) | payer MEDICARE, BC ==
--- NOTE | 2019-01-19 16:12 | US ---
EXAMINATION TYPE: US kidneys/renal and bladder DATE OF EXAM: 01/19/2019 COMPARISON: US CLINICAL HISTORY: N18.3 Chronic Kidney Disease Stage III. Chronic kidney disease EXAM MEASUREMENTS: Right Kidney: 8.3 x 4.0 x 4.8 cm Left Kidney: 9.4 x 4.9 x 4.4 cm Right Kidney: Small in size, otherwise no abnormality visualized Left Kidney: Small in size, otherwise no abnormality visualized Bladder: wnl Bilateral Jets seen: No There is no evidence for hydronephrosis at this point in time. No nephrolithiasis is seen. No jennifer s are identified. The urinary bladder is anechoic. Bilateral ureteral jets are seen. IMPRESSION: Small size of the kidneys, otherwise unremarkable exam with no hydronephrosis or nephroli thiasis.
== END | disposition home or self-care (01) ==
LOC: RADUSWWP 15:26
PROVIDERS: ATTEND Internal Medicine Nephrology
DX: N18.3 Chronic kidney disease, stage 3 (moderate) (principal)
CPT/HCPCS: 76770

== ENCOUNTER 2019-01-21 18:42 | Inpatient (IN) | payer MEDICARE, BC ==
[2019-01-21] MEDS ORDERED: SODIUM CHLORIDE 0.9% 500 ML 500 ML IV STA (19:21)
--- NOTE | 2019-01-21 19:27 | ED ---
General Adult HPI - General Chief complaint: Fall Stated complaint: Fall/head injury Time Seen by Provider: 01/21/19 19:09 Source: patient, EMS Mode of arrival: EMS - History of Present Illness Initial comments: Dictation was produced using [employer] dictation software. please excuse any grammatical, word or spelling errors. Chief Complaint: 83-year-old female presents after fall. History of Present Illness: She is 83-year-old female she was walking her dog earlier when she tripped and fell. Patient states she fell forward on an outstretched arm with her left upper extremity. Patient she struck her head. She is denies any loss of consciousness. Patient states she has pain to her left shoulder and face. Denies any vision changes. No diplopia. No neuro deficits. Patient is complaining of some mild pain to her right knee. Emesis, patient is transferred to the emergency department. EMS provided patient with 100 mg of fentanyl. The ROS documented in this emergency department record has been reviewed and confirmed by me. Those systems with pertinent positive or negative responses have been documented in the HPI. All other systems are other negative and/or noncontributory. PHYSICAL EXAM: General Impression: Alert and oriented x3, not in acute distress HEENT: Gross deformity to the face with flattening of the nasal bridge, extra- ocular movements intact, pupils equal and reactive to light bilaterally, mucous membranes moist. Cardiovascular: Heart regular rate and rhythm, S1&S2 audible, no murmurs, rubs or gallops Chest: Lungs clear to auscultation bilaterally, no rhonchi, no wheeze, no rales Abdomen: Bowel sounds present, abdomen soft, non-tender, non-distended, no organomegaly Musculoskeletal: Pulses present and equal in all extremities, no peripheral edema. Severe tenderness to palpation of the left shoulder Motor: no focal deficits noted Neurological: CN II-XII grossly intact, no focal motor or sensory deficits noted Skin: Abrasions to the right knee Psych: Normal affect and mood ED course: 83-year-old female presents after fall. Patient suffered a mechanical fall while walking her dog. Vital signs upon arrival are within acceptable limits. Abdomen evaluation was obtained. Patient is leukocytosis of 10.9 with secondary to stress. Coag panel unremarkable. Metabolic panel shows findings within a cceptable limits. Patient given intravenous fluids. He did scan of the head face and neck was obtained. Patient does have frontal scalp soft tissue swelling and laceration. No intracranial abnormalities. No acute traumatic injuries to the neck. Face CT shows comminuted nasal bone fracture. Chest x- ray is nonacute. Pelvis x-ray is nonacute. Patient's tetanus is updated according to patient. Shoulder x-ray shows anterior displaced fracture dislocation left humeral head. There is significant displacement of the greater tuberosity was approximately 3.5 cm. Discussed patient case with neck branch of orthopedic surgery. Requested patient be admitted to Dr. Chilel, nothing by mouth at midnight is for likely surgery tomorrow. EKG interpretation: Ventricular rate 74, sinus rhythm with first-degree AV block, pO2 24, care is 90, QTC 463. No AL prolongation, no QTC prolongation, no ST or T-wave changes noted. Overall, this EKG is unremarkable - Related Data Home Medications Medication Instructions Recorded Confirmed Levothyroxine Sodium [Synthroid] 112 mcg PO DAILY 01/08/14 01/21/19 Ranitidine HCl [Zantac] 150 mg PO BID 01/08/14 01/21/19 amLODIPine [Norvasc] 5 mg PO DAILY 01/08/14 01/21/19 Aspirin EC [Ecotrin Low Dose] 81 mg PO DAILY 09/24/17 01/21/19 Carvedilol [Coreg] 12.5 mg PO BID 09/24/17 01/21/19 Cyanocobalamin (Vitamin B-12) 1,000 mcg PO DAILY 09/24/17 01/21/19 [Vitamin B-12] Lisinopril [Zestril] 10 mg PO DAILY 09/24/17 01/21/19 Pioglitazone [Actos] 15 mg PO DAILY 09/24/17 01/21/19 Atorvastatin [Lipitor] 20 mg PO HS 09/20/18 01/21/19 Acetaminophen Tab [Tylenol Tab] 1,000 mg PO Q6H PRN 01/21/19 01/21/19 Cholecalciferol (Vitamin D3) 2,000 unit PO DAILY 01/21/19 01/21/19 [Vitamin D3] Multivitamins, Thera [Multivitamin 1 tab PO DAILY 01/21/19 01/21/19 (formulary)] Allergies Allergy/AdvReac Type Severity Reaction Status Date / Time orange juice Allergy Rash/Hives Verified 01/21/19 19:25 Sulfa (Sulfonamide Allergy Nausea & Verified 01/21/19 19:25 Antibiotics) Vomiting Review of Systems ROS Statement: Those systems with pertinent positive or pertinent negative responses have been documented in the HPI. ROS Other: All systems not noted in ROS Statement are negative. Past Medical History Past Medical History: Coronary Artery Disease (CAD), Diabetes Mellitus, GI Bleed, Hyperlipidemia, Hypertension, Thyroid Disorder History of Any Multi-Drug Resistant Organisms: None Reported Past Surgical History: Cholecystectomy, Hysterectomy Additional Past Surgical History / Comment(s): carotid artery Past Anesthesia/Blood Transfusion Reactions: No Reported Reaction Past Psychological History: No Psychological Hx Reported Smoking Status: Former smoker Past Alcohol Use History: Rare Past Drug Use History: None Reported Course Vital Signs 01/21/19 18:47 Temperature 97.5 F L Pulse Rate 76 Respiratory 16 Rate Blood Pressure 164/74 O2 Sat by Pulse 93 L Oximetry Medical Decision Making - Lab Data Result diagrams: 01/21/19 19:41 01/21/19 19:41 Lab Results 01/21/19 01/21/19 01/21/19 Range/Units 19:41 19:41 19:41 WBC 10.9 H (3.8-10.6) k/uL RBC 3.55 L (3.80-5.40) m/uL Hgb 11.4 (11.4-16.0) gm/dL Hct 34.4 (34.0-46.0) % MCV 97.0 (80.0-100.0) fL MCH 32.1 (25.0-35.0) pg MCHC 33.2 (31.0-37.0) g/dL RDW 13.2 (11.5-15.5) % Plt Count 310 (150-450) k/uL Neutrophils % 74 % Lymphocytes % 15 % Monocytes % 7 % Eosinophils % 2 % Basophils % 1 % Neutrophils # 8.1 H (1.3-7.7) k/uL Lymphocytes # 1.6 (1.0-4.8) k/uL Monocytes # 0.8 (0-1.0) k/uL Eosinophils # 0.2 (0-0.7) k/uL Basophils # 0.1 (0-0.2) k/uL PT 10.3 (9.0-12.0) sec INR 1.0 (<1.2) APTT 17.7 L (22.0-30.0) sec Sodium 139 (137-145) mmol/L Potassium 4.0 (3.5-5.1) mmol/L Chloride 105 (98-107) mmol/L Carbon Dioxide 23 (22-30) mmol/L Anion Gap 11 mmol/L BUN 25 H (7-17) mg/dL Creatinine 0.93 (0.52-1.04) mg/dL Est GFR (CKD-EPI)AfAm 67 (>60 ml/min/1.73 sqM) Est GFR (CKD-EPI)NonAf 58 (>60 ml/min/1.73 sqM) Glucose 204 H (74-99) mg/dL Calcium 9.3 (8.4-10.2) mg/dL Total Bilirubin 0.5 (0.2-1.3) mg/dL AST 21 (14-36) U/L ALT 18 (9-52) U/L Alkaline Phosphatase 94 (38-126) U/L Troponin I (0.000-0.034) ng/mL Total Protein 7.4 (6.3-8.2) g/dL Albumin 4.4 (3.5-5.0) g/dL Blood Type Blood Type Recheck Bld Type Recheck Status Antibody Screen Spec Expiration Date 01/21/19 01/21/19 Range/Units 19:41 19:43 WBC (3.8-10.6) k/uL RBC (3.80-5.40) m/uL Hgb (11.4-16.0) gm/dL Hct (34.0-46.0) % MCV (80.0-100.0) fL MCH (25.0-35.0) pg MCHC (31.0-37.0) g/dL RDW (11.5-15.5) % Plt Count (150-450) k/uL Neutrophils % % Lymphocytes % % Monocytes % % Eosinophils % % Basophils % % Neutrophils # (1.3-7.7) k/uL Lymphocytes # (1.0-4.8) k/uL Monocytes # (0-1.0) k/uL Eosinophils # (0-0.7) k/uL Basophils # (0-0.2) k/uL PT (9.0-12.0) sec INR (<1.2) APTT (22.0-30.0) sec Sodium (137-145) mmol/L Potassium (3.5-5.1) mmol/L Chloride (98-107) mmol/L Carbon Dioxide (22-30) mmol/L Anion Gap mmol/L BUN (7-17) mg/dL Creatinine (0.52-1.04) mg/dL Est GFR (CKD-EPI)AfAm (>60 ml/min/1.73 sqM) Est GFR (CKD-EPI)NonAf (>60 ml/min/1.73 sqM) Glucose (74-99) mg/dL Calcium (8.4-10.2) mg/dL Total Bilirubin (0.2-1.3) mg/dL AST (14-36) U/L ALT (9-52) U/L Alkaline Phosphatase (38-126) U/L Troponin I <0.012 (0.000-0.034) ng/mL Total Protein (6.3-8.2) g/dL Albumin (3.5-5.0) g/dL Blood Type O Positive Blood Type Recheck O Pos Bld Type Recheck Status No Antibody Screen NEGATIVE Spec Expiration Date 01/24/2019 - 2343 Disposition Clinical Impression: Humerus fracture Disposition: ADMITTED IP TO THIS [facility] Condition: Fair Referrals: Mesfin Solis DO [Primary Care Provider] - 1-2 days Decision Time: 21:46
[2019-01-21 20:08] LABS: Basophils # (A) 0.1 k/uL (0-0.2); Basophils % (A) 1 %; Eosinophils # (A) 0.2 k/uL (0-0.7); Eosinophils % (A) 2 %; HCT 34.4 % (34.0-46.0); HGB 11.4 gm/dL (11.4-16.0); Lymphocytes # (A) 1.6 k/uL (1.0-4.8); Lymphocytes % (A) 15 %; MCH 32.1 pg (25.0-35.0); MCHC 33.2 g/dL (31.0-37.0); Mean Platelet Volume 8.1; Monocytes # (A) 0.8 k/uL (0-1.0); Monocytes % (A) 7 %; Neutrophils # (A) 8.1 k/uL (1.3-7.7); Neutrophils % (A) 74 %; Platelet Count 310 k/uL (150-450); RBC 3.55 m/uL (3.80-5.40); RDW 13.2 % (11.5-15.5); WBC 10.9 k/uL (3.8-10.6)
[2019-01-21 20:23] LABS: Prothrombin Time 10.3 sec (9.0-12.0)
[2019-01-21 20:24] LABS: Partial Thromboplastin Time 17.7 sec (22.0-30.0)
--- NOTE | 2019-01-21 20:47 | CT ---
EXAMINATION TYPE: CT brain ryan camara DATE OF EXAM: 01/21/2019 COMPARISON: None HISTORY: Fall. CT DLP: 1092.4 mGycm Automated exposure control for dose reduction was used. TECHNIQUE: CT scan of the head and cervical spine are performed without contrast. FINDINGS: There is cerebral cortical atrophy. There is no mass effect nor midline shift. There is n o sign of intracranial hemorrhage. The calvarium is intact. There is frontal scalp soft tissue swelli ng and soft tissue air consistent with laceration. Cervical vertebra have normal alignment. There is hypertrophic anterior spurring in the lower cervica l spine. There is multilevel moderate hypertrophic facet arthropathy. There is no evidence of a fract ure. Skull base is intact. IMPRESSION: No acute intracranial abnormality. Frontal scalp soft tissue swelling and laceration. Spondylotic changes in the cervical spine. No fracture.
--- NOTE | 2019-01-21 20:51 | CT ---
EXAMINATION TYPE: CT facial bones wo con DATE OF EXAM: 01/21/2019 COMPARISON: None HISTORY: Fall CT DLP: 1092.4 mGycm Automated exposure control for dose reduction was used. TECHNIQUE: CT scan of the sinuses is performed without contrast, axial images are obtained, coronal r eformatted images are also reviewed. FINDINGS: There is central and right side scalp soft tissue swelling and air bubbles consistent with laceration and hematoma. There is preseptal soft tissue swelling around the right orbit. There is no evidence of retro-orbital mass. Frontal bone appears intact. There is no evidence of a blowout fracture. There is mucosal thickening in the nasopharynx. There is comminuted nasal bone fracture. The maxilla is intact. Zygomatic arches are intact. The mandibular ri ng appears intact. Temporomandibular joints are intact. IMPRESSION: Comminuted nasal bone fracture. Soft tissue swelling. Frontal scalp hematoma and lacerati on. Right periorbital soft tissue swelling.
--- NOTE | 2019-01-21 20:54 | XR ---
EXAMINATION TYPE: XR pelvis AP view DATE OF EXAM: 01/21/2019 COMPARISON: NONE HISTORY: Pain TECHNIQUE: Single view FINDINGS: Pelvic ring is intact. Proximal femurs and hip joints are intact. Sacroiliac joints appear normal. IMPRESSION: Negative pelvis exam.
--- NOTE | 2019-01-21 20:56 | XR ---
EXAMINATION TYPE: XR chest 1V DATE OF EXAM: 01/21/2019 COMPARISON: NONE HISTORY: Pain TECHNIQUE: Single frontal view of the chest is obtained. FINDINGS: There is anterior fracture dislocation of the humeral head. The lungs are clear of consoli dation. There is coarsening of the lung markings. Thoracic aorta is atheromatous. There is no pleural effusion. IMPRESSION: Interstitial fibrotic changes. This appears increased compared to old exam. Mild heart f ailure is possible. Anterior fracture dislocation of the left humeral head.
--- NOTE | 2019-01-21 20:57 | XR ---
EXAMINATION TYPE: XR shoulder complete LT DATE OF EXAM: 01/21/2019 COMPARISON: NONE HISTORY: Pain. Fall TECHNIQUE: 2 views FINDINGS: There is comminuted fracture of the left humeral neck and greater tuberosity. There is ante rior dislocation of the humeral head. There is significant displacement of the greater tuberosity 3.5 cm. The scapula is intact. IMPRESSION: Anterior displaced fracture dislocation of the left humeral head and shoulder joint.
[2019-01-21 21:04] LABS: Albumin 4.4 g/dL (3.5-5.0); Calcium 9.3 mg/dL (8.4-10.2); Total Bilirubin 0.5 mg/dL (0.2-1.3); Total Protein 7.4 g/dL (6.3-8.2)
[2019-01-21] MEDS ORDERED: PROPOFOL 10 MG/ML 20 ML VIAL IV ONE (21:19)
[2019-01-21] MEDS ORDERED: LIDOCAINE 1% INJ 10MG/ML (20 ML MDV) SQ ONE (21:30)
[2019-01-21] MEDS ORDERED: ACETAMINOPHEN TAB 325 MG TAB PO PRN (21:40)
[2019-01-21] MEDS ORDERED: NALOXONE 0.4 MG/ML 1 ML VIAL IV PRN (21:40)
[2019-01-21] MEDS ORDERED: MORPHINE SULFATE 4 MG/ML SYRINGE IV PRN (21:40)
--- NOTE | 2019-01-21 21:48 | ED ---
Medical Decision Making - Lab Data Result diagrams: 01/21/19 19:41 01/21/19 19:41 Lab Results 01/21/19 01/21/19 01/21/19 Range/Units 19:41 19:41 19:41 WBC 10.9 H (3.8-10.6) k/uL RBC 3.55 L (3.80-5.40) m/uL Hgb 11.4 (11.4-16.0) gm/dL Hct 34.4 (34.0-46.0) % MCV 97.0 (80.0-100.0) fL MCH 32.1 (25.0-35.0) pg MCHC 33.2 (31.0-37.0) g/dL RDW 13.2 (11.5-15.5) % Plt Count 310 (150-450) k/uL Neutrophils % 74 % Lymphocytes % 15 % Monocytes % 7 % Eosinophils % 2 % Basophils % 1 % Neutrophils # 8.1 H (1.3-7.7) k/uL Lymphocytes # 1.6 (1.0-4.8) k/uL Monocytes # 0.8 (0-1.0) k/uL Eosinophils # 0.2 (0-0.7) k/uL Basophils # 0.1 (0-0.2) k/uL PT 10.3 (9.0-12.0) sec INR 1.0 (<1.2) APTT 17.7 L (22.0-30.0) sec Sodium 139 (137-145) mmol/L Potassium 4.0 (3.5-5.1) mmol/L Chloride 105 (98-107) mmol/L Carbon Dioxide 23 (22-30) mmol/L Anion Gap 11 mmol/L BUN 25 H (7-17) mg/dL Creatinine 0.93 (0.52-1.04) mg/dL Est GFR (CKD-EPI)AfAm 67 (>60 ml/min/1.73 sqM) Est GFR (CKD-EPI)NonAf 58 (>60 ml/min/1.73 sqM) Glucose 204 H (74-99) mg/dL Calcium 9.3 (8.4-10.2) mg/dL Total Bilirubin 0.5 (0.2-1.3) mg/dL AST 21 (14-36) U/L ALT 18 (9-52) U/L Alkaline Phosphatase 94 (38-126) U/L Troponin I (0.000-0.034) ng/mL Total Protein 7.4 (6.3-8.2) g/dL Albumin 4.4 (3.5-5.0) g/dL Blood Type Blood Type Recheck Bld Type Recheck Status Antibody Screen Spec Expiration Date 01/21/19 01/21/19 Range/Units 19:41 19:43 WBC (3.8-10.6) k/uL RBC (3.80-5.40) m/uL Hgb (11.4-16.0) gm/dL Hct (34.0-46.0) % MCV (80.0-100.0) fL MCH (25.0-35.0) pg MCHC (31.0-37.0) g/dL RDW (11.5-15.5) % Plt Count (150-450) k/uL Neutrophils % % Lymphocytes % % Monocytes % % Eosinophils % % Basophils % % Neutrophils # (1.3-7.7) k/uL Lymphocytes # (1.0-4.8) k/uL Monocytes # (0-1.0) k/uL Eosinophils # (0-0.7) k/uL Basophils # (0-0.2) k/uL PT (9.0-12.0) sec INR (<1.2) APTT (22.0-30.0) sec Sodium (137-145) mmol/L Potassium (3.5-5.1) mmol/L Chloride (98-107) mmol/L Carbon Dioxide (22-30) mmol/L Anion Gap mmol/L BUN (7-17) mg/dL Creatinine (0.52-1.04) mg/dL Est GFR (CKD-EPI)AfAm (>60 ml/min/1.73 sqM) Est GFR (CKD-EPI)NonAf (>60 ml/min/1.73 sqM) Glucose (74-99) mg/dL Calcium (8.4-10.2) mg/dL Total Bilirubin (0.2-1.3) mg/dL AST (14-36) U/L ALT (9-52) U/L Alkaline Phosphatase (38-126) U/L Troponin I <0.012 (0.000-0.034) ng/mL Total Protein (6.3-8.2) g/dL Albumin (3.5-5.0) g/dL Blood Type O Positive Blood Type Recheck O Pos Bld Type Recheck Status No Antibody Screen NEGATIVE Spec Expiration Date 01/24/2019 - 2343 Disposition Clinical Impression: Humerus fracture Disposition: ADMITTED IP TO THIS HOSP Condition: Fair Referrals: Mesfin Solis DO [Primary Care Provider] - 1-2 days Procedures - Laceration Laceration #1 Consent Obtained: verbal consent Indication: laceration Site: face Size (cm): 1 Description: linear Depth: simple, single layer Anesthetic Used: lidocaine 1% Anesthesia Technique: local infiltration Type of Sutures: nylon Size of Sutures: 6-0 Technique: simple, interrupted Patient Tolerated Procedure: well
[2019-01-21] MEDS: ONDANSETRON 4 MG/2 ML VIAL IVP PRN (21:56)
[2019-01-21] MEDS: SODIUM CHLORIDE 0.9% 1,000 ML IV SCH (21:56)
[2019-01-21] MEDS: MORPHINE SULFATE 2 MG/ML SYRINGE IVP PRN (21:57)
--- NOTE | 2019-01-21 22:32 | CT ---
EXAMINATION TYPE: CT shoulder LT wo con DATE OF EXAM: 01/21/2019 COMPARISON: None HISTORY: Left shoulder pain after fall. CT DLP: 480.4 mGycm Automated exposure control for dose reduction was used. FINDINGS: There is severely comminuted fracture of the greater tuberosity of the humerus. Fracture line also ex tends to the humeral neck with some impaction. There is anterior dislocation of the humeral head. The scapula appears intact. The AC joint is anatomic. Clavicle appears intact. The greater tuberosity fr agments are displaced anteriorly up to 3 cm. IMPRESSION: SEVERELY COMMINUTED AND DISPLACED HUMERAL NECK FRACTURE AND OCCLUDING THE GREATER TUBEROSITY WITH ANT ERIOR DISLOCATION OF THE HUMERAL HEAD. MAJOR PORTION OF THE HUMERAL HEAD IS IN FAIRLY GOOD APPOSITION WITH THE SHAFT OF THE HUMERUS.
[2019-01-22] MEDS: ONDANSETRON 4 MG/2 ML VIAL IVP PRN ×3 (00:54→15:50)
[2019-01-22] MEDS: MORPHINE SULFATE 2 MG/ML SYRINGE IVP PRN (09:34)
[2019-01-22] MEDS: LEVOTHYROXINE 112 MCG TAB PO SCH (10:27)
[2019-01-22] MEDS: CARVEDILOL 12.5 MG TAB PO SCH ×2 (10:27→17:51)
[2019-01-22] MEDS: amLODIPine 5 MG TAB PO SCH (10:28)
[2019-01-22] MEDS: LISINOPRIL 10 MG TAB PO SCH (10:28)
[2019-01-22] MEDS: PIOGLITAZONE 15 MG TAB PO SCH (10:28)
--- NOTE | 2019-01-22 10:48 | P.HPOR ---
History of Present Illness H&P Date: 01/22/19 Chief Complaint: Left shoulder pain The patient's an 83-year-old [id number] female who presents after falling yesterday while trying to walk her dog. She fell face first. She denies loss of consciousness. She complains of severe left shoulder pain. She denies previous injury or problems. Review of Systems Musculoskeletal: Reports as per HPI Musculoskeletal: left: shoulder pain Past Medical History Past Medical History: Coronary Artery Disease (CAD), Diabetes Mellitus, GI Bleed, Hyperlipidemia, Hypertension, Thyroid Disorder History of Any Multi-Drug Resistant Organisms: None Reported Past Surgical History: Cholecystectomy, Hysterectomy Additional Past Surgical History / Comment(s): carotid artery Past Anesthesia/Blood Transfusion Reactions: No Reported Reaction Smoking Status: Former smoker Medications and Allergies Home Medications Medication Instructions Recorded Confirmed Type Levothyroxine Sodium [Synthroid] 112 mcg PO DAILY 01/08/14 01/21/19 History Ranitidine HCl [Zantac] 150 mg PO BID 01/08/14 01/21/19 History amLODIPine [Norvasc] 5 mg PO DAILY 01/08/14 01/21/19 History Aspirin EC [Ecotrin Low Dose] 81 mg PO DAILY 09/24/17 01/21/19 History Carvedilol [Coreg] 12.5 mg PO BID 09/24/17 01/21/19 History Cyanocobalamin (Vitamin B-12) 1,000 mcg PO DAILY 09/24/17 01/21/19 History [Vitamin B-12] Lisinopril [Zestril] 10 mg PO DAILY 09/24/17 01/21/19 History Pioglitazone [Actos] 15 mg PO DAILY 09/24/17 01/21/19 History Atorvastatin [Lipitor] 20 mg PO HS 09/20/18 01/21/19 History Acetaminophen Tab [Tylenol Tab] 1,000 mg PO Q6H PRN 01/21/19 01/21/19 History Cholecalciferol (Vitamin D3) 2,000 unit PO DAILY 01/21/19 01/21/19 History [Vitamin D3] Multivitamins, Thera [Multivitamin 1 tab PO DAILY 01/21/19 01/21/19 History (formulary)] Allergies Allergy/AdvReac Type Severity Reaction Status Date / Time orange juice Allergy Rash/Hives Verified 01/21/19 19:25 Sulfa (Sulfonamide Allergy Nausea & Verified 01/21/19 19:25 Antibiotics) Vomiting Physical Examination The patient's a well-developed well-nourished elderly female who appears to be in mild distress secondary to left shoulder pain. Nontender over the cervical thoracic and lumbar spine Moderate swelling left shoulder with anterior glenohumeral tenderness Limited range of motion left shoulder secondary to pain Nontender left elbow and wrist Neurovascular exam appears intact left upper extremity Nontender right upper extremity Pelvis stable to external rotation stress Painless passive motion both hips and knees - Fracture left shoulder Location of fracture: Left proximal humerus Appearance: swelling (Moderate) Open wound: None Distal extremity neurovascularly intact: Yes Distal joint involvement: No Results - Labs Labs: Abnormal Lab Results - Last 24 Hours (Table) 01/21/19 01/21/19 01/21/19 Range/Units 19:41 19:41 19:41 WBC 10.9 H (3.8-10.6) k/uL RBC 3.55 L (3.80-5.40) m/uL Neutrophils # 8.1 H (1.3-7.7) k/uL APTT 17.7 L (22.0-30.0) sec BUN 25 H (7-17) mg/dL Glucose 204 H (74-99) mg/dL H & H 01/21/19 Range/Units 19:41 Hgb 11.4 (11.4-16.0) gm/dL Hct 34.4 (34.0-46.0) % Coagulation 01/21/19 Range/Units 19:41 INR 1.0 (<1.2) Result Diagrams: 01/21/19 19:41 01/21/19 19:41 - Diagnostic results Shoulder x-ray: image reviewed Shoulder CT: image reviewed (Displaced four-part left proximal humerus fracture/dislocation) Assessment and Plan Assessment: Left displaced four-part proximal humerus fracture/dislocation Nasal fracture Plan: I talked to the patient regarding her condition along with treatment options. At this point we will plan to proceed with attempted closed reduction of her fracture dislocation versus left shoulder reverse arthroplasty. We will keep the patient nothing by mouth at this point. Time with Patient: Greater than 30
[2019-01-22] MEDS ORDERED: fentaNYL (PF) 50 MCG/ML 2 ML AMP ONE (12:55)
[2019-01-22] MEDS ORDERED: LIDOCAINE 1% INJ 10MG/ML (20 ML MDV) ONE (12:55)
[2019-01-22] MEDS ORDERED: ePHEDrine SULFATE/0.9% NACL/PF 50 MG/5 ML SYRINGE IV ONE (12:55)
[2019-01-22] MEDS ORDERED: PROPOFOL 10 MG/ML 20 ML VIAL IV ONE (12:55)
[2019-01-22] MEDS ORDERED: ROCURONIUM BROMIDE 10 MG/ML 10 ML VIAL IV ONE (12:55)
[2019-01-22] MEDS ORDERED: SUCCINYLCHOLINE CHLORIDE 100 MG/5 ML SYR IV ONE (12:55)
[2019-01-22] MEDS ORDERED: MIDAZOLAM 2 MG/2 ML VIAL ONE (12:55)
[2019-01-22] MEDS ORDERED: IV FLUID CONTINUATION 1,000 ML IV ONE (12:55)
[2019-01-22] MEDS ORDERED: SODIUM CHLORIDE 0.9% 100 ML with ceFAZolin 2,000 MG IV ONE ×2 (13:37)
--- NOTE | 2019-01-22 13:56 | FL ---
FLUOROSCOPY 10 seconds of fluoroscopy time were utilized during left shoulder manipulation. 1 images document the procedure.
[2019-01-22] MEDS ORDERED: ACETAMINOPHEN TAB 325 MG TAB PO PRN (15:00)
--- NOTE | 2019-01-22 15:31 | P.OP ---
Date of Procedure: 01/22/19 Preoperative Diagnosis: Displaced left 4 part proximal humerus fracture/dislocation Postoperative Diagnosis: Same Procedure(s) Performed: 1) attempted closed reduction left shoulder dislocation 2) left reverse total shoulder arthroplasty Implants: Depuy Delta Xtend size 10 standard cemented humeral stem, 38+3 articular surface, 38 mm glenosphere with standard baseplate. Anesthesia: ANITA Surgeon: Mati Farfan Stamping Machine Operator #1: Ravin Hinojosa Estimated Blood Loss (ml): 100 Pathology: other (Humeral head) Condition: stable Disposition: PACU Indications for Procedure: The patient is an 83-year-old female who presents after falling yesterday sustaining a fracture dislocation left proximal humerus. A discussion of the risks and benefits of operative intervention was made with patient. Operative options to include attempted closed reduction versus left reverse total shoulder arthroplasty was discussed. She opted to proceed. Operative risks to include infection, neurovascular injury, developed blood clots, possible instability, possible component loosening, possible need for subsequent procedures was discussed. Informed consent was obtained. Operative Findings: As below Description of Procedure: The patient was brought to the operating room, and after induction of general anesthesia, I attempted to reduce the fracture dislocation unsuccessfully. Fluoroscopy was used to aid in this. The humeral head fragment was rotated posteriorly. It was elected to proceed with reverse arthroplasty at this point. She was placed in a beachchair position. The bony prominences were appropriately padded. The left upper extremity was prepped and draped in normal fashion. The bony outlines the coracoid process, distal clavicle, and acromion were outlined with a skin marker. A pulse centimeter deltopectoral incision was made lateral to the coracoid process. Skin was incised sharply. Subcutaneous tissues were divided bluntly. Electrocautery was used for hem ostasis. The cephalic vein was identified and gently retracted laterally with the deltoid. The deltopectoral was bluntly developed. Subdeltoid adhesions were then released. The self-retaining retractor was placed. The conjoined tendon was retracted medially and the deltoid laterally. The biceps was identified. Its sheath was opened. A biceps tenotomy was performed along the remaining tendon did retract distally. The lesser tuberosity fracture was identified and tagged with #2 Ethibond suture. The rotator interval was opened. The head fragment was noted to be rotated posteriorly and was excised. The greater tuberosity fragment was tagged with #2 Ethibond suture. Attention was then paid towards preparing the glenoid. An anterior and posterior retractors placed. The labrum was released from the 6:00 to 12 o'clock position. Remaining biceps was removed as well. A guidepin was placed in the inferior aspect of the glenoid with the guide slightly tilting inferior. The reamer was used down to a bleeding bony surface. The central peg hole was drilled. The standard baseplate was inserted with good purchase. Inferior, superior, and screws the appropriate length were placed. Good purchase was obtained. The 38 mm glenosphere was inserted over a guidewire. This was fully seated. Care was taken to avoid any soft tissue interposition. The humeral canal was then reamed by hand up to a size 10. There was good distal chatter. A trial size 10 stem was placed utilizing the humeral clamp adjusting the overall height. I planned on 20 of retroversion. Trial reduction was then obtained with a 38+3 articular surface. The shoulder was taken through range of motion. It was felt to be stable in flexion and extension with internal and external rotation. I felt there was adequate buddhist of soft tissue tension judging off the conjoined tendon. The shoulder was gently dislocated. The trial components were then removed. The final size 10 cemented humeral stem along with a size 1 epiphysis was fully seated. There was good rotational stability. The 38 mm +3 articular surface was impacted. The shoulder again was gently reduced and taken through range of motion. Again it was felt to be stable in all planes. Pulsatile lavage was utilized. The tuberosities were reattached to each other and the stem with #2 Ethibond suture. The deltopectoral interval was closed with interrupted 2-0 Vicryl sutures. The skin was reapproximated with 3-0 subcuticular Prolene suture. Steri-Strips were applied. A sterile dressing was applied. A sling was placed. The patient was awoken from general anesthesia and transferred to recovery room in good condition. Blood loss was estimated at 100 mL. No complications were incurred. Sponge and needle counts were correct at the end the case. Naga CAMARA assisted during the major components of the case to include exposure, glenoid and humeral preparation, implantation, and closure.
[2019-01-22 15:38] LABS: Glucose,Whole Blood 131 mg/dL (75-99)
--- NOTE | 2019-01-22 15:56 | XR ---
EXAMINATION TYPE: XR shoulder limited LT DATE OF EXAM: 01/22/2019 COMPARISON: NONE HISTORY: Postop shoulder surgery TECHNIQUE: Single view FINDINGS: There is left shoulder prosthesis. Components are in anatomic position. IMPRESSION: No complicating process seen.
--- NOTE | 2019-01-22 16:10 | P.ANPRN ---
Procedure Note - Anesthesia - Nerve Block Performed Left Interscalene Single Time Out Performed: Yes Date of Procedure: 01/22/19 Procedure Start Time: 15:58 Procedure Stop Time: 16:05 Location of Patient Procedure: PACU Indication: Requested by Surgeon Specifically requested for management of pain by DrNoe: Mati Farfan Preparation: Sterile Prep Position: Supine Needle Types: Pajunk Needle Gauge: 21 Ultrasound used to visualize needle placement: Yes Ultrasound used to observe medication spread: Yes Injectate: 0.5% Ropivacaine (see comment for volume) (20 ml) Blood Aspirated: No Pain Paresthesia on Injection Noted: No Resistance on Injection: Normal Image Stored and Saved: Yes Events: Uneventful and Well Tolerated
[2019-01-22] MEDS: PANTOPRAZOLE 40 MG/10 ML VIAL IV SCH (16:46)
[2019-01-22] MEDS: SODIUM CHLORIDE 0.9% 1,000 ML IV SCH ×2 (17:45→18:24)
--- NOTE | 2019-01-22 21:06 | P.CONS ---
History of Present Illness - Reason for Consult Consult date: 01/22/19 Medical management Requesting physician: Mati Fafran - Chief Complaint fall - History of Present Illness Consultation: This is a pleasant 83-year-old patient, whose history was obtained by the at the bedside. Chronic stable medical conditions include coronary a rtery disease, diabetes, hyperlipidemia, hypertension, hypothyroid. Patient had taken her dog out for a walk, and a dog ran around her rapid legs and she fell face forward. Right arm was outstretched. She developed several bruising face and also suffered a fracture of the right humerus. When she noted return home had come out and found her on the concrete floor. She had not lost consciousness. I saw the patient post surgery and she was rather sedated. was present. Who gave most of the history. Review of systems cannot be obtained as patient rather sleepy postop.. Social history: Does smoke in the past. Alcohol rarely. Lives with her . Family history: Reviewed, noncontributory to presentation Physical examination: VITAL SIGNS: 97, 87, 16, 173% at 2, 93% on 3 L GENERAL: BMI 28.9 laying in bed sedated]. EYES: [David or parietal bilateral swelling redness hematoma, bilaterally. HEENT: Bruising around the eyes and over the nose. NECK: JVD unable to assess; masses not palpable. HEART: First and second heart sounds are normal; no edema. LUNGS: Respiratory rate normal; clear to auscultation. ABDOMEN: Soft, nontender, liver spleen not palpable, no masses palpable. PSYCH: Sedated, unable to assessl. NEUROLOGICAL: Bruising on the face hence not able to assess, patient sedated not able to assess further,. LYMPHATICS: No lymph nodes palpable in the and neck Muscular skeletal: Dressing over the left shoulder left arm in a sling INVESTIGATIONS, reviewed in the clinical context: White count 10.9 and hemoglobin 11.4 potassium 4 creatinine 0.93 glucose 204 Troponin less than 0.012 EKG tracing personally reviewed by me shows sinus rhythm. Checks x-ray film reported-interstitial fibrotic changes and dislocation of left humeral head Shoulder [id number] displaced fracture dislocation of the left humeral head and the shoulder joint Assessment: -Left reverse total shoulder arthroplasty done for proximal humerus fracture and dislocation -Severe facial bruising secondary to blunt trauma -Comminuted nasal bone fracture, frontal scalp hematoma and laceration -Coronary artery disease -Hyperlipidemia -Hypertension -Hypothyroidism -Diabetes mellitus type 2 oral hypoglycemic Plan: Patient's home medications are to be resumed. Accu-Cheks will be followed. DVT prophylaxis. Pain control per orthopedic team. Care was discussed at length with the at the bedside. Questionable were answered. Thank you Dr. Chilel. Past Medical History Past Medical History: Coronary Artery Disease (CAD), Diabetes Mellitus, GI Bleed, Hyperlipidemia, Hypertension, Thyroid Disorder History of Any Multi-Drug Resistant Organisms: None Reported Past Surgical History: Cholecystectomy, Hysterectomy Additional Past Surgical History / Comment(s): carotid artery Past Anesthesia/Blood Transfusion Reactions: No Reported Reaction Smoking Status: Former smoker Medications and Allergies Home Medications Medication Instructions Recorded Confirmed Type Levothyroxine Sodium [Synthroid] 112 mcg PO DAILY 01/08/14 01/21/19 History Ranitidine HCl [Zantac] 150 mg PO BID 01/08/14 01/21/19 History amLODIPine [Norvasc] 5 mg PO DAILY 01/08/14 01/21/19 History Aspirin EC [Ecotrin Low Dose] 81 mg PO DAILY 09/24/17 01/21/19 History Carvedilol [Coreg] 12.5 mg PO BID 09/24/17 01/21/19 History Cyanocobalamin (Vitamin B-12) 1,000 mcg PO DAILY 09/24/17 01/21/19 History [Vitamin B-12] Lisinopril [Zestril] 10 mg PO DAILY 09/24/17 01/21/19 History Pioglitazone [Actos] 15 mg PO DAILY 09/24/17 01/21/19 History Atorvastatin [Lipitor] 20 mg PO HS 09/20/18 01/21/19 History Acetaminophen Tab [Tylenol Tab] 1,000 mg PO Q6H PRN 01/21/19 01/21/19 History Cholecalciferol (Vitamin D3) 2,000 unit PO DAILY 01/21/19 01/21/19 History [Vitamin D3] Multivitamins, Thera [Multivitamin 1 tab PO DAILY 01/21/19 01/21/19 History (formulary)] Allergies Allergy/AdvReac Type Severity Reaction Status Date / Time orange juice Allergy Rash/Hives Verified 01/21/19 19:25 Sulfa (Sulfonamide Allergy Nausea & Verified 01/21/19 19:25 Antibiotics) Vomiting Physical Exam Vitals: Vital Signs Temp Pulse Resp BP Pulse Ox 01/22/19 11:57 94 L 01/22/19 11:22 95 01/22/19 06:39 82 16 159/73 98 01/22/19 00:00 98.0 F 80 16 155/71 94 L 01/21/19 21:58 79 14 144/63 94 L 01/21/19 18:47 97.5 F L 76 16 164/74 93 L Intake and Output 01/21/19 01/22/19 01/22/19 22:59 06:59 14:59 Output Total 1200 Balance -1200 Output: Urine 1200 Other: Voiding Method Indwelling Catheter Weight 69.4 kg Results CBC & Chem 7: 01/21/19 19:41 01/21/19 19:41 Labs: Abnormal Lab Results - Last 24 Hours (Table) 01/21/19 01/21/19 01/21/19 Range/Units 19:41 19:41 19:41 WBC 10.9 H (3.8-10.6) k/uL RBC 3.55 L (3.80-5.40) m/uL Neutrophils # 8.1 H (1.3-7.7) k/uL APTT 17.7 L (22.0-30.0) sec BUN 25 H (7-17) mg/dL Glucose 204 H (74-99) mg/dL
[2019-01-23] MEDS: ONDANSETRON 4 MG/2 ML VIAL IVP PRN (00:22)
[2019-01-23] MEDS: SODIUM CHLORIDE 0.9% 1,000 ML IV SCH ×3 (03:52→20:54)
[2019-01-23] MEDS: LEVOTHYROXINE 112 MCG TAB PO SCH (05:38)
[2019-01-23] MEDS: HYDROcodone/APAP 5-325MG 1 EACH TAB PO PRN ×2 (06:23→20:54)
[2019-01-23 08:51] LABS: Basophils % (A) 0 %; Eosinophils % (A) 0 %; HCT 30.5 % (34.0-46.0); Lymphocytes % (A) 9 %; MCH 31.9 pg (25.0-35.0); MCHC 32.9 g/dL (31.0-37.0); Mean Platelet Volume 7.8; Monocytes # (A) 1.3 k/uL (0-1.0); Monocytes % (A) 11 %; Neutrophils # (A) 9.3 k/uL (1.3-7.7); Neutrophils % (A) 78 %; Platelet Count 263 k/uL (150-450); RBC 3.14 m/uL (3.80-5.40); WBC 11.9 k/uL (3.8-10.6)
[2019-01-23] MEDS: amLODIPine 5 MG TAB PO SCH (09:14)
[2019-01-23] MEDS: PANTOPRAZOLE 40 MG/10 ML VIAL IV SCH (09:14)
[2019-01-23] MEDS: LISINOPRIL 10 MG TAB PO SCH (09:14)
[2019-01-23] MEDS: PIOGLITAZONE 15 MG TAB PO SCH (09:14)
[2019-01-23] MEDS: CARVEDILOL 12.5 MG TAB PO SCH ×2 (09:14→16:52)
--- NOTE | 2019-01-23 10:20 | P.PN ---
Subjective Progress Note Date: 01/23/19 Principal diagnosis: Status post reverse left total shoulder arthroplasty Patient evaluated at bedside today, she is resting comfortably. She has no chest pain or shortness of breath. Her pain is well-controlled at this time. Objective - Vital Signs Vital signs: Vital Signs Temp 98.5 F 01/23/19 08:00 Pulse 85 01/23/19 08:00 Resp 14 01/23/19 08:00 BP 172/73 01/23/19 08:00 Pulse Ox 93 L 01/23/19 08:00 Intake & Output 01/22/19 01/23/19 01/23/19 18:59 06:59 18:59 Intake Total 850 1780 180 Output Total 550 700 Balance 300 1080 180 Intake: IV 850 Intake, IV Titration 1300 Amount Sodium Chloride 0.9% 1, 1000 000 ml @ 100 mls/hr IV . Q10H AMAYA Rx#:[id number] Sodium Chloride 0.9% 100 200 ml @ 0 mls/hr IV .STK-MED ONE with ceFAZolin 2,000 mg Rx#:[id number] ceFAZolin 2 gm In Sodium 100 Chloride 0.9% 50 ml @ 100 mls/hr IVPB Q8HR AMAYA Rx# :[id number] Oral 480 180 Output: Urine 450 700 Estimated Blood Loss 100 Other: Voiding Method Indwelling Catheter Indwelling Catheter Indwelling Catheter # Voids 150 - Exam Left upper extremity: Postoperative bandage is in good position and condition, ecchymosis is noted in the distal aspect of the arm. Sensation to light touch with the extremities intact. Radial pulses 2+ - Labs CBC & Chem 7: 01/23/19 08:20 01/21/19 19:41 Labs: Abnormal Lab Results - Last 24 Hours (Table) 01/22/19 01/23/19 Range/Units 15:36 08:20 WBC 11.9 H (3.8-10.6) k/uL RBC 3.14 L (3.80-5.40) m/uL Hgb 10.0 L (11.4-16.0) gm/dL Hct 30.5 L (34.0-46.0) % Neutrophils # 9.3 H (1.3-7.7) k/uL Monocytes # 1.3 H (0-1.0) k/uL POC Glucose (mg/dL) 131 H (75-99) mg/dL Assessment and Plan Plan: Assessment: Postop day 1 status post reverse left total shoulder arthroplasty Plan: Pain control, continue current medication GI and DVT prophylaxis, continue current medication Discussed with nursing to change bandage later today Continue to ice the upper extremity Physical therapy evaluation for gait training Plan for discharge in the next day or 2, discussed with nursing to have conversation with the family regarding possible rehab. This can be facilitated with the aid of case management. Time with Patient: Less than 30
[2019-01-23] MEDS: ASPIRIN 325 MG TAB PO SCH (10:52)
--- NOTE | 2019-01-23 23:35 | P.PN ---
Progress Note - Text Progress Note Date: 01/23/19 Interval history: This is a pleasant 83-year-old patient, whose history was obtained by the rust and at the bedside. Chronic stable medical conditions include coronary artery disease, diabetes, hyperlipidemia, hypertension, hypothyroid. Patient had taken her dog out for a walk, and a dog ran around her rapid legs and she fell face forward. Right arm was outstretched. She developed several bruising face and also suffered a fracture of the right humerus. When she noted return home had come out and found her on the concrete floor. She had not lost consciousness. I saw the patient post surgery and she was rather sedated. was present. Who gave most of the history. On January 22 patient underwent left reverse total shoulder arthroplasty for the proximal humerus fracture. Today-propped up in bed. Awake. Left arm in a sling. Did tolerate some diet. Some pain in the left shoulder. Review of systems: Was done for constitutional, cardiovascular, GI, pulmonary. Musculoskeletal, relevant finding as above Active Medications Acetaminophen (Tylenol Tab) 650 mg PO Q6HR PRN PRN Reason: Fever and/ or Mild Pain Last Admin: 01/23/19 00:22 Dose: 650 mg Documented by: Hydrocodone Bitart/Acetaminophen ([place] 5-325) 1 each PO Q6HR PRN PRN Reason: Pain Scale 1 to 5 Last Admin: 01/23/19 20:54 Dose: 1 each Documented by: Amlodipine Besylate (Norvasc) 5 mg PO DAILY [facility] Last Admin: 01/23/19 09:14 Dose: 5 mg Documented by: Aspirin (Aspirin) 325 mg PO DAILY [facility] Last Admin: 01/23/19 10:52 Dose: 325 mg Documented by: Carvedilol (Coreg) 12.5 mg PO BID-W/MEALS [facility] Last Admin: 01/23/19 16:52 Dose: 12.5 mg Documented by: Sodium Chloride (Saline 0.9%) 1,000 mls @ 100 mls/hr IV .Q10H [facility] Last Admin: 01/23/19 20:54 Dose: 100 mls/hr Documented by: Levothyroxine Sodium (Synthroid) 112 mcg PO DAILY@0630 [facility] Last Admin: 01/23/19 05:38 Dose: 112 mcg Documented by: Lisinopril (Zestril) 10 mg PO DAILY [facility] Last Admin: 10/21/19 09:14 Dose: 10 mg Documented by: Morphine Sulfate (Morphine Sulfate (Inj)) 4 mg IV Q4HR PRN PRN Reason: Severe Pain Morphine Sulfate (Morphine Sulfate (Inj)) 2 mg IVP ONCE PRN PRN Reason: Pain/Discomfort Last Admin: 01/22/19 09:34 Dose: 2 mg Documented by: Naloxone HCl (Narcan) 0.2 mg IV Q2M PRN PRN Reason: Opioid Reversal Ondansetron HCl (Zofran) 4 mg IVP Q8HR PRN PRN Reason: Nausea And Vomiting Last Admin: 01/23/19 00:22 Dose: 4 mg Documented by: Pantoprazole Sodium (Protonix) 40 mg PO [facility] Pioglitazone HCl (Actos) 15 mg PO DAILY [facility] Last Admin: 01/23/19 09:14 Dose: 15 mg Documented by: Physical examination: VITAL SIGNS: 98.5, 85, 14, 172/73, 93% on 2 L GENERAL: Sitting up in the bed, awake, tired. EYES: [Periorbital bilateral swelling redness hematoma, bilaterally. HEENT: Bruising around the eyes and over the nose. NECK: JVD unable to assess; masses not palpable. HEART: First and second heart sounds are normal; no edema. LUNGS: Respiratory rate normal; clear to auscultation. ABDOMEN: Soft, nontender, liver spleen not palpable, no masses palpable. PSYCH: Alert 3, NEUROLOGICAL: Bruising on the face no facial asymmetry, Muscular skeletal: Dressing over the left shoulder left arm in a sling INVESTIGATIONS, reviewed in the clinical context: White count 11.9 hemoglobin 10 Prior testing White count 10.9 and hemoglobin 11.4 potassium 4 creatinine 0.93 glucose 204 Troponin less than 0.012 EKG tracing personally reviewed by me shows sinus rhythm. Checks x-ray film reported-interstitial fibrotic changes and dislocation of left humeral head Shoulder [id number]-[id number]-[id number] displaced fracture dislocation of the left humeral head and the shoulder joint Assessment: -Left reverse total shoulder arthroplasty done for proximal humerus fracture and dislocation -Severe facial bruising secondary to blunt trauma -Comminuted nasal bone fracture, frontal scalp hematoma and laceration -Coronary artery disease -Hyperlipidemia -Hypertension -Hypothyroidism -Diabetes mellitus type 2 oral hypoglycemic Plan: Lovenox for DVT prophylaxis. Other medications to continue. Discussed with the patient. Thank you Dr. Chilel.
[2019-01-23 23:44] LABS: Glucose,Whole Blood 155 mg/dL (75-99)
[2019-01-23] MEDS: INSULIN ASPART (NovoLOG) 100 UNIT/ML VIAL SQ SCH (23:58)
[2019-01-23] MEDS: ENOXAPARIN 40 MG/0.4 ML SYRINGE SQ SCH (23:58)
[2019-01-24] MEDS: LEVOTHYROXINE 112 MCG TAB PO SCH (05:25)
[2019-01-24 07:03] LABS: Glucose,Whole Blood 136 mg/dL (75-99)
[2019-01-24] MEDS: HYDROcodone/APAP 5-325MG 1 EACH TAB PO PRN (07:48)
[2019-01-24] MEDS: CARVEDILOL 12.5 MG TAB PO SCH ×2 (07:48→17:59)
[2019-01-24] MEDS: amLODIPine 5 MG TAB PO SCH (07:48)
[2019-01-24] MEDS: PIOGLITAZONE 15 MG TAB PO SCH (07:48)
[2019-01-24] MEDS: PANTOPRAZOLE 40 MG TABLET PO SCH (07:48)
[2019-01-24] MEDS: LISINOPRIL 10 MG TAB PO SCH (07:48)
[2019-01-24] MEDS: ASPIRIN 325 MG TAB PO SCH (07:48)
[2019-01-24] MEDS: ENOXAPARIN 40 MG/0.4 ML SYRINGE SQ SCH (07:49)
[2019-01-24] MEDS: INSULIN ASPART (NovoLOG) 100 UNIT/ML VIAL SQ SCH ×4 (07:49→20:35)
--- NOTE | 2019-01-24 11:23 | P.PN ---
Subjective Progress Note Date: 01/24/19 Principal diagnosis: Status post reverse left total shoulder arthroplasty Patient evaluated at bedside today, she is resting comfortably. She has no chest pain or shortness of breath. Her pain is well-controlled at this time. Objective - Vital Signs Vital signs: Vital Signs Temp 98.5 F 01/24/19 07:10 Pulse 89 01/24/19 08:00 Resp 16 01/24/19 08:00 BP 164/65 01/24/19 07:10 Pulse Ox 88 L 01/24/19 09:40 Intake & Output 01/23/19 01/24/19 01/24/19 18:59 06:59 18:59 Intake Total 656 500 180 Output Total 1200 Balance -544 500 180 Intake: Oral 656 500 180 Output: Urine 1200 Other: Voiding Method Indwelling Catheter Indwelling Catheter Indwelling Catheter - Exam Left upper extremity: Incision is clean, dry and intact. ecchymosis is noted in the distal aspect of the arm. Sensation to light touch with the extremities intact. Radial pulses 2+ - Labs CBC & Chem 7: 01/23/19 08:20 01/21/19 19:41 Labs: Abnormal Lab Results - Last 24 Hours (Table) 01/23/19 01/24/19 Range/Units 23:43 07:00 POC Glucose (mg/dL) 155 H 136 H (75-99) mg/dL Assessment and Plan Plan: Assessment: Postop day #2 status post reverse left total shoulder arthroplasty Plan: Pain control, continue current medication GI and DVT prophylaxis, continue current medication Discussed with nursing to change bandage later today Continue to ice the upper extremity Physical therapy evaluation for gait training Plan for discharge to rehab on Time with Patient: Less than 30
[2019-01-24 12:04] LABS: Glucose,Whole Blood 150 mg/dL (75-99)
[2019-01-24 17:23] LABS: Glucose,Whole Blood 169 mg/dL (75-99)
[2019-01-24] MEDS: SODIUM CHLORIDE 0.9% 1,000 ML IV SCH ×2 (19:19)
[2019-01-24 20:31] LABS: Glucose,Whole Blood 144 mg/dL (75-99)
--- NOTE | 2019-01-25 00:09 | P.PN ---
Progress Note - Text Progress Note Date: 01/24/19 Interval history: This is a pleasant 83-year-old patient, whose history was obtained by the [facility] and at the bedside. Chronic stable medical conditions include coronary artery disease, diabetes, hyperlipidemia, hypertension, hypothyroid. Patient had taken her dog out for a walk, and a dog ran around her rapid legs and she fell face forward. Right arm was outstretched. She developed several bruising face and also suffered a fracture of the right humerus. When she noted return home had come out and found her on the concrete floor. She had not lost consciousness. I saw the patient post surgery and she was rather sedated. was present. Who gave most of the history. On January 22 patient underwent left reverse total shoulder arthroplasty for the proximal humerus fracture. Today-more alert today. Did tolerate her breakfast. Patient is better controlled. Walking with therapy. Review of systems: Was done for constitutional, cardiovascular, GI, pulmonary. Musculoskeletal, relevant finding as above Active Medications Acetaminophen (Tylenol Tab) 650 mg PO Q6HR PRN PRN Reason: Fever and/ or Mild Pain Last Admin: 01/23/19 00:22 Dose: 650 mg Documented by: Hydrocodone Bitart/Acetaminophen ([place] 5-325) 1 each PO Q6HR PRN PRN Reason: Pain Scale 1 to 5 Last Admin: 01/24/19 07:48 Dose: 1 each Documented by: Amlodipine Besylate (Norvasc) 5 mg PO DAILY [facility] Last Admin: 01/24/19 07:48 Dose: 5 mg Documented by: Aspirin (Aspirin) 325 mg PO DAILY [facility] Last Admin: 01/24/19 07:48 Dose: 325 mg Documented by: Carvedilol (Coreg) 12.5 mg PO BID-W/MEALS [facility] Last Admin: 01/24/19 17:59 Dose: 12.5 mg Documented by: Enoxaparin Sodium (Lovenox) 40 mg SQ DAILY [facility] Last Admin: 01/24/19 07:49 Dose: 40 mg Documented by: Sodium Chloride (Saline 0.9%) 1,000 mls @ 100 mls/hr IV .Q10H [facility] Last Admin: 01/24/19 19:19 Dose: 100 mls/hr Documented by: Insulin Aspart (Novolog) 0 unit SQ ACHS [facility]; Protocol Last Admin: 01/24/19 20:35 Dose: 1 unit Documented by: Levothyroxine Sodium (Synthroid) 112 mcg PO DAILY@0630 [facility] Last Admin: 01/24/19 05:25 Dose: 112 mcg Documented by: Lisinopril (Zestril) 10 mg PO DAILY [facility] Last Admin: 01/24/19 07:48 Dose: 10 mg Documented by: Morphine Sulfate (Morphine Sulfate (Inj)) 4 mg IV Q4HR PRN PRN Reason: Severe Pain Morphine Sulfate (Morphine Sulfate (Inj)) 2 mg IVP ONCE PRN PRN Reason: Pain/Discomfort Last Admin: 01/22/19 09:34 Dose: 2 mg Documented by: Naloxone HCl (Narcan) 0.2 mg IV Q2M PRN PRN Reason: Opioid Reversal Ondansetron HCl (Zofran) 4 mg IVP Q8HR PRN PRN Reason: Nausea And Vomiting Last Admin: 01/23/19 00:22 Dose: 4 mg Documented by: Pantoprazole Sodium (Protonix) 40 mg PO AC-BRKFST [facility] Last Admin: 01/24/19 07:48 Dose: 40 mg Documented by: Pioglitazone HCl (Actos) 15 mg PO DAILY [facility] Last Admin: 01/24/19 07:48 Dose: 15 mg Documented by: Physical examination: VITAL SIGNS: 98.5, 89, 16, 160/65, 92% on 3 L GENERAL: Sitting up in the bed, comfortable EYES: [Periorbital bilateral swelling redness hematoma, bilaterally. HEENT: Bruising around the eyes and over the nose. NECK: JVD unable to assess; masses not palpable. HEART: First and second heart sounds are normal; no edema. LUNGS: Respiratory rate normal; clear to auscultation. ABDOMEN: Soft, nontender, liver spleen not palpable, no masses palpable. PSYCH: Alert 3, NEUROLOGICAL: Bruising on the face no facial asymmetry, Muscular skeletal: Dressing over the left shoulder left arm in a sling INVESTIGATIONS, reviewed in the clinical context: Accu-Cheks noted Prior testing White count 10.9 and hemoglobin 11.4 potassium 4 creatinine 0.93 glucose 204 Troponin less than 0.012 EKG tracing personally reviewed by me shows sinus rhythm. Checks x-ray film reported-interstitial fibrotic changes and dislocation of left humeral head Shoulder [id number]-lcd-ovsplwcp displaced fracture dislocation of the left humeral head and the shoulder joint Assessment: -Left reverse total shoulder arthroplasty done for proximal humerus fracture and dislocation -Severe facial bruising secondary to blunt trauma -Comminuted nasal bone fracture, frontal scalp hematoma and laceration -Coronary artery disease -Hyperlipidemia -Hypertension -Hypothyroidism -Diabetes mellitus type 2 oral hypoglycemic Plan: Continue current medication. Care discussed with the patient and . Improving. Thank you Dr. Chilel.
[2019-01-25] MEDS: LEVOTHYROXINE 112 MCG TAB PO SCH (06:00)
[2019-01-25] MEDS: SODIUM CHLORIDE 0.9% 1,000 ML IV SCH ×2 (06:00→17:36)
[2019-01-25 06:49] LABS: Glucose,Whole Blood 144 mg/dL (75-99)
[2019-01-25] MEDS: PIOGLITAZONE 15 MG TAB PO SCH (08:04)
[2019-01-25] MEDS: amLODIPine 5 MG TAB PO SCH (08:04)
[2019-01-25] MEDS: ENOXAPARIN 40 MG/0.4 ML SYRINGE SQ SCH (08:04)
[2019-01-25] MEDS: ASPIRIN 325 MG TAB PO SCH (08:04)
[2019-01-25] MEDS: PANTOPRAZOLE 40 MG TABLET PO SCH (08:04)
[2019-01-25] MEDS: INSULIN ASPART (NovoLOG) 100 UNIT/ML VIAL SQ SCH ×4 (08:04→20:36)
[2019-01-25] MEDS: LISINOPRIL 10 MG TAB PO SCH (08:04)
[2019-01-25] MEDS: CARVEDILOL 12.5 MG TAB PO SCH ×2 (08:04→17:36)
--- NOTE | 2019-01-25 11:21 | P.PN ---
Subjective Progress Note Date: 01/25/19 Principal diagnosis: Status post reverse left total shoulder arthroplasty Patient evaluated at bedside today, she is resting comfortably. She has no chest pain or shortness of breath. Her pain is well-controlled at this time. Objective - Vital Signs Vital signs: Vital Signs Temp 98.5 F 01/25/19 06:42 Pulse 92 01/25/19 06:42 Resp 15 01/25/19 06:42 BP 146/68 01/25/19 06:42 Pulse Ox 92 L 01/25/19 06:42 Intake & Output 01/24/19 01/25/19 01/25/19 18:59 06:59 18:59 Intake Total 980 600 320 Output Total 650 Balance 330 600 320 Intake: Intake, IV Titration 700 Amount Sodium Chloride 0.9% 100 700 ml @ 0 mls/hr IV .STK-MED ONE with ceFAZolin 2,000 mg Rx#:[id number] Oral 280 600 320 Output: Urine 650 Uretheral ([place]) 650 Other: Voiding Method Indwelling Catheter Diaper Toilet Diaper # Voids 2 - Exam Left upper extremity: Incision is clean, dry and intact. ecchymosis is noted in the distal aspect of the arm. Sensation to light touch with the extremities intact. Radial pulses 2+ - Labs CBC & Chem 7: 01/23/19 08:20 01/21/19 19:41 Labs: Abnormal Lab Results - Last 24 Hours (Table) 01/24/19 01/24/19 01/24/19 Range/Units 11:59 17:20 20:30 POC Glucose (mg/dL) 150 H 169 H 144 H (75-99) mg/dL 01/25/19 Range/Units 06:45 POC Glucose (mg/dL) 144 H (75-99) mg/dL Assessment and Plan Plan: Assessment: Postop day #3 status post reverse left total shoulder arthroplasty Plan: Pain control, continue current medication GI and DVT prophylaxis, continue current medication Continue to ice the upper extremity Physical therapy evaluation for gait training Plan for discharge to rehab on tomorrw Time with Patient: Less than 30
[2019-01-25 12:07] LABS: Glucose,Whole Blood 137 mg/dL (75-99)
[2019-01-25 17:16] LABS: Glucose,Whole Blood 140 mg/dL (75-99)
[2019-01-25 20:15] LABS: Glucose,Whole Blood 172 mg/dL (75-99)
--- NOTE | 2019-01-25 22:07 | P.PN ---
Progress Note - Text Progress Note Date: 01/25/19 Interval history: This is a pleasant 83-year-old patient, whose history was obtained by the [facility] and at the bedside. Chronic stable medical conditions include coronary artery disease, diabetes, hyperlipidemia, hypertension, hypothyroid. Patient had taken her dog out for a walk, and a dog ran around her rapid legs and she fell face forward. Right arm was outstretched. She developed several bruising face and also suffered a fracture of the right humerus. When she noted return home had come out and found her on the concrete floor. She had not lost consciousness. I saw the patient post surgery and she was rather sedated. was present. Who gave most of the history. On January 22 patient underwent left reverse total shoulder arthroplasty for the proximal humerus fracture. Today-sitting on a chair. Eating better. Did work with therapy. No new issues.. Review of systems: Was done for constitutional, cardiovascular, GI, pulmonary. Musculoskeletal, relevant finding as above Active Medications Acetaminophen (Tylenol Tab) 650 mg PO Q6HR PRN PRN Reason: Fever and/ or Mild Pain Last Admin: 01/23/19 00:22 Dose: 650 mg Documented by: Hydrocodone Bitart/Acetaminophen ([place] 5-325) 1 each PO Q6HR PRN PRN Reason: Pain Scale 1 to 5 Last Admin: 01/24/19 07:48 Dose: 1 each Documented by: Amlodipine Besylate (Norvasc) 5 mg PO DAILY [facility] Last Admin: 01/25/19 08:04 Dose: 5 mg Documented by: Aspirin (Aspirin) 325 mg PO DAILY [facility] Last Admin: 01/25/19 08:04 Dose: 325 mg Documented by: Carvedilol (Coreg) 12.5 mg PO BID-W/MEALS [facility] Last Admin: 01/25/19 17:36 Dose: 12.5 mg Documented by: Sodium Chloride (Saline 0.9%) 1,000 mls @ 100 mls/hr IV .Q10H [facility] Last Admin: 01/25/19 17:36 Dose: 100 mls/hr Documented by: Insulin Aspart (Novolog) 0 unit SQ ACHS [facility]; Protocol Last Admin: 01/25/19 20:36 Dose: 2 unit Documented by: Levothyroxine Sodium (Synthroid) 112 mcg PO DAILY@0630 [facility] Last Admin: 01/25/19 06:00 Dose: 112 mcg Documented by: Lisinopril (Zestril) 10 mg PO DAILY [facility] Last Admin: 01/25/19 08:04 Dose: 10 mg Documented by: Morphine Sulfate (Morphine Sulfate (Inj)) 4 mg IV Q4HR PRN PRN Reason: Severe Pain Morphine Sulfate (Morphine Sulfate (Inj)) 2 mg IVP ONCE PRN PRN Reason: Pain/Discomfort Last Admin: 01/22/19 09:34 Dose: 2 mg Documented by: Naloxone HCl (Narcan) 0.2 mg IV Q2M PRN PRN Reason: Opioid Reversal Ondansetron HCl (Zofran) 4 mg IVP Q8HR PRN PRN Reason: Nausea And Vomiting Last Admin: 01/23/19 00:22 Dose: 4 mg Documented by: Pantoprazole Sodium (Protonix) 40 mg PO AC-BRKFST [facility] Last Admin: 01/25/19 08:04 Dose: 40 mg Documented by: Pioglitazone HCl (Actos) 15 mg PO DAILY [facility] Last Admin: 01/25/19 08:04 Dose: 15 mg Documented by: Physical examination: VITAL SIGNS: 98.3, 85, 16, 36489, 92% room air GENERAL: Sitting up in a chair, comfortable EYES: [Periorbital bilateral swelling redness hematoma, bilaterally. Slowly improving HEENT: Bruising around the eyes and over the nose. NECK: JVD unable to assess; masses not palpable. HEART: First and second heart sounds are normal; no edema. LUNGS: Respiratory rate normal; clear to auscultation. ABDOMEN: Soft, nontender, liver spleen not palpable, no masses palpable. PSYCH: Alert and oriented 3 Muscular skeletal: Dressing over the left shoulder left arm in a sling INVESTIGATIONS, reviewed in the clinical context: Accu-Cheks noted Prior testing White count 10.9 and hemoglobin 11.4 potassium 4 creatinine 0.93 glucose 204 Troponin less than 0.012 EKG tracing personally reviewed by me shows sinus rhythm. Checks x-ray film reported-interstitial fibrotic changes and dislocation of left humeral head Shoulder r-ute-sbousdai displaced fracture dislocation of the left humeral head and the shoulder joint Assessment: -Left reverse total shoulder arthroplasty done for proximal humerus fracture and dislocation -Severe facial bruising secondary to blunt trauma -Comminuted nasal bone fracture, frontal scalp hematoma and laceration -Coronary artery disease -Hyperlipidemia -Hypertension -Hypothyroidism -Diabetes mellitus type 2 oral hypoglycemic -Possibly pulmonary fibrosis as per chest x-ray Plan: Stable. Doing better. Continue current medication treatment plan. Thank you Dr. Chilel.
[2019-01-25] MEDS: HYDROcodone/APAP 5-325MG 1 EACH TAB PO PRN (22:13)
[2019-01-26] MEDS: SODIUM CHLORIDE 0.9% 1,000 ML IV SCH ×2 (01:45→11:47)
[2019-01-26 01:59] VITALS: TEMP 98.3
[2019-01-26] MEDS: LEVOTHYROXINE 112 MCG TAB PO SCH (05:34)
[2019-01-26 06:49] LABS: Glucose,Whole Blood 142 mg/dL (75-99)
[2019-01-26 07:24] VITALS: BP 160/72; PULSE 84; RESP 16
[2019-01-26] MEDS: INSULIN ASPART (NovoLOG) 100 UNIT/ML VIAL SQ SCH ×2 (08:31→12:55)
[2019-01-26] MEDS: PANTOPRAZOLE 40 MG TABLET PO SCH (09:06)
[2019-01-26] MEDS: ASPIRIN 325 MG TAB PO SCH (09:06)
[2019-01-26] MEDS: CARVEDILOL 12.5 MG TAB PO SCH (09:06)
[2019-01-26] MEDS: LISINOPRIL 10 MG TAB PO SCH (09:06)
[2019-01-26] MEDS: amLODIPine 5 MG TAB PO SCH (09:06)
[2019-01-26] MEDS: PIOGLITAZONE 15 MG TAB PO SCH (09:06)
--- NOTE | 2019-01-26 10:31 | P.PN ---
Subjective Progress Note Date: 01/26/19 Principal diagnosis: s/p reverse left total shoulder arthroplasty Patient doing well, pain is well controlled. No acute complaints Objective - Vital Signs Vital signs: Vital Signs Temp 98.3 F 01/26/19 07:24 Pulse 84 01/26/19 07:24 Resp 16 01/26/19 07:24 BP 160/72 01/26/19 07:24 Pulse Ox 92 L 01/26/19 07:24 Intake & Output 01/25/19 01/26/19 01/26/19 18:59 06:59 18:59 Intake Total 500 Balance 500 Intake: Oral 500 Other: Voiding Method Toilet Diaper # Voids 1 2 - Exam Left upper extremity: Incision is clean dry and intact. Ecchymosis and swelling present throughout arm. Neurovascular exam intact - Labs CBC & Chem 7: 01/23/19 08:20 01/21/19 19:41 Labs: Abnormal Lab Results - Last 24 Hours (Table) 01/25/19 01/25/19 01/25/19 Range/Units 12:05 17:13 20:13 POC Glucose (mg/dL) 137 H 140 H 172 H (75-99) mg/dL 01/26/19 Range/Units 06:45 POC Glucose (mg/dL) 142 H (75-99) mg/dL Assessment and Plan Plan: Assessment: s/p left reverse total shoulder arthroplasty Plan: Pain control, [place] 5/325 daily GI and DVT prophylaxis, 81mg bid for 2 weeks Daily dressing changes Utilize sling Discharge to rehab today Time with Patient: Less than 30
--- NOTE | 2019-01-26 10:36 | P.DS ---
<AshishRavin M - Last Filed: 01/25/19 11:21> Hospital Course: Date of admission: 01/21/2019 Date of discharge: [] Admission diagnosis: Left four-part proximal humerus fracture with shoulder dislocation Discharge diagnosis: status post reverse left total shoulder arthroplasty Attending physician: Dr. Farfan Surgical procedures: reverse left total shoulder arthroplasty Brief history: Patient is 83-year-old female who presented to [facility] on 01/21/2019 after sustaining a fall. She had a severe fracture- dislocation involving her left shoulder. She was admitted to the hospital with plan for likely surgical intervention. Attempt was first made for closed reduction, this was not achievable. Patient then underwent a reverse left total shoulder arthroplasty on 01/22/2019. Hospital course: Details of patient's surgery can be found in operative report. Patient tolerated the procedure well and was subsequently transported to orthopedic floor. Patient's orthopeidc and medical care was provided daily. Patient had daily laboratory tests performed for evaluation of overall blood counts. Patient had daily physical therapy to include strengthening range of motion as well as education with walker ambulation. Patient was treated with Lovenox and aspirin for their postoperative DVT prophylaxis during their inp atient stay. Patient was noted to have a relatively uneventful postoperative course. Patient reported satisfactory pain control with oral pain medications by postoperative day 0. Patient showed satisfactory progress with physical therapy. Patient moved steadily through the program and had no difficulty meeting the goals by postoperative day 1. Given patient's otherwise satisfactory course and having met physical therapy goals, plan is to discharge patient rehab on postoperative day []. Discharge condition/disposition: Patient will be discharged rehab in stable condition. Discharge medications: Instructions are given on resumption of patient's normal daily medications per primary care recommendation, in addition patient will be prescribed []. Discharge instructions: 1. Wound care and infection precautions, [keep incision dry and covered while showering], no lotions, creams, moisturizers. No soaking, tubs, pools, hottubs. Do not scrub over the incision. 2. Utilize arm sling 3. Ice and elevate when necessary. Do not exceed 20 minutes per hour with ice pack. 4. Follow up in office at 2 weeks postop with Naga Hinojosa PA-C 5. Follow up with your primary care doctor 7-10 days after discharge. 6. Contact [facility] with any questions, . Procedures: Reverse left total shoulder arthroplasty Patient Condition at Discharge: Fair Plan - Discharge Summary Discharge Rx Participant: Yes New Discharge Prescriptions: New HYDROcodone/APAP 5-325MG [[place] 5-325] 1 tab PO Q6HR PRN #28 tab PRN Reason: Pain Aspirin 81 mg PO BID #30 chewable No Action Levothyroxine Sodium [Synthroid] 112 mcg PO DAILY amLODIPine [Norvasc] 5 mg PO DAILY Ranitidine HCl [Zantac] 150 mg PO BID Pioglitazone [Actos] 15 mg PO DAILY Lisinopril [Zestril] 10 mg PO DAILY Cyanocobalamin (Vitamin B-12) [Vitamin B-12] 1,000 mcg PO DAILY Carvedilol [Coreg] 12.5 mg PO BID Atorvastatin [Lipitor] 20 mg PO HS Acetaminophen Tab [Tylenol Tab] 1,000 mg PO Q6H PRN PRN Reason: Pain Cholecalciferol (Vitamin D3) [Vitamin D3] 2,000 unit PO DAILY Multivitamins, Thera [Multivitamin (formulary)] 1 tab PO DAILY Discharge Medication List Levothyroxine Sodium [Synthroid] 112 mcg PO DAILY 01/08/14 [History] Ranitidine HCl [Zantac] 150 mg PO BID 01/08/14 [History] amLODIPine [Norvasc] 5 mg PO DAILY 01/08/14 [History] Carvedilol [Coreg] 12.5 mg PO BID 09/24/17 [History] Cyanocobalamin (Vitamin B-12) [Vitamin B-12] 1,000 mcg PO DAILY 09/24/17 [History] Lisinopril [Zestril] 10 mg PO DAILY 09/24/17 [History] Pioglitazone [Actos] 15 mg PO DAILY 09/24/17 [History] Atorvastatin [Lipitor] 20 mg PO HS 09/20/18 [History] Acetaminophen Tab [Tylenol Tab] 1,000 mg PO Q6H PRN 01/21/19 [History] Cholecalciferol (Vitamin D3) [Vitamin D3] 2,000 unit PO DAILY 01/21/19 [History] Multivitamins, Thera [Multivitamin (formulary)] 1 tab PO DAILY 01/21/19 [History] Aspirin 81 mg PO BID #30 chewable 01/26/19 [Rx] HYDROcodone/APAP 5-325MG [[place] 5-325] 1 tab PO Q6HR PRN #28 tab 01/26/19 [Rx] Follow up Appointment(s)/Referral(s): Mesfin Solis DO [Primary Care Provider] - 02/01/19 9:00 am Ravin Hinojosa PAC [PHYSICIAN EXPLORATION GEOLOGIST] - 02/10/19 2:50 pm Activity/Diet/Wound Care/Special Instructions: Orthopedic discharge instructions: 1. Pain controlled, oral medication as needed 2. GI and DVT prophylaxis, aspirin 325 mg daily 3. Utilize arm sling at all times 4. Keep incision dry and covered while showering 5. Plan for follow-up at [facility] in 2 weeks. AVOID PHYSICAL THERAPY ON LEFT SHOULDER OK FOR LOWER EXTREMITY STRENGTHENING Discharge Disposition: TRANSFER TO SNF/ECF <Mati Farfan - Last Filed: 01/26/19 10:36> Providers Date of admission: 01/23/19 15:35 Expected date of discharge: 01/26/19 Attending physician: Mati Farfan Consults: 01/21/19 21:41 Consult Physician Routine Consulting Provider: Gary Bell Consult Reason/Comments: medical consultation Do you want consulting provider notified?: Yes Primary care physician: Mesfin Solis Hospital Course: Patient will be discharged to rehab on 01/26/2019. She will be prescribed [place] 5mg/325mg #28 for discharge. Will increase her 81mg aspirin to twice per day for 2 weeks. She will utilize arm sling at all times. PT ok for lower extremities, avoid left shoulder. Keep incision dry and covered while showering. Plan for follow up at [facility] in 2 weeks.
[2019-01-26 12:15] LABS: Glucose,Whole Blood 202 mg/dL (75-99)
--- NOTE | 2019-01-26 20:42 | P.PN ---
Progress Note - Text Progress Note Date: 01/26/19 Interval history: This is a pleasant 83-year-old patient, whose history was obtained by the [facility] and at the bedside. Chronic stable medical conditions include coronary artery disease, diabetes, hyperlipidemia, hypertension, hypothyroid. Patient had taken her dog out for a walk, and a dog ran around her rapid legs and she fell face forward. Right arm was outstretched. She developed several bruising face and also suffered a fracture of the right humerus. When she noted return home had come out and found her on the concrete floor. She had not lost consciousness. I saw the patient post surgery and she was rather sedated. was present. Who gave most of the history. On January 22 patient underwent left reverse total shoulder arthroplasty for the proximal humerus fracture. Today-doing much better. Tolerated diet. Patient is controlled. Up to the bathroom... Review of systems: Was done for constitutional, cardiovascular, GI, pulmonary. Musculoskeletal, relevant finding as above Current medications are reviewed from today's electronic records Physical examination: VITAL SIGNS: 98.3, 84, 16, 160/72, 92% on 4 L GENERAL: Sitting up in a chair, comfortable EYES: [Periorbital bilateral swelling redness hematoma, bilaterally. Slowly improving HEENT: Bruising around the eyes and over the nose. NECK: JVD unable to assess; masses not palpable. HEART: First and second heart sounds are normal; no edema. LUNGS: Respiratory rate normal; clear to auscultation. ABDOMEN: Soft, nontender, liver spleen not palpable, no masses palpable. PSYCH: Alert and oriented 3 Muscular skeletal: Dressing over the left shoulder left arm in a sling INVESTIGATIONS, reviewed in the clinical context: Accu-Cheks noted Prior testing White count 10.9 and hemoglobin 11.4 potassium 4 creatinine 0.93 glucose 204 Troponin less than 0.012 EKG tracing personally reviewed by me shows sinus rhythm. Checks x-ray film reported-interstitial fibrotic changes and dislocation of left humeral head Shoulder [id number] displaced fracture dislocation of the left humeral head and the shoulder joint Assessment: -Left reverse total shoulder arthroplasty done for proximal humerus fracture and dislocation -Severe facial bruising secondary to blunt trauma -Comminuted nasal bone fracture, frontal scalp hematoma and laceration -Coronary artery disease -Hyperlipidemia -Hypertension -Hypothyroidism -Diabetes mellitus type 2 oral hypoglycemic -Possibly pulmonary fibrosis as per chest x-ray Plan: Continue current medication treatment plan. Care was discussed with the patient and . Stable. Thank you Dr. Chilel.
== END 2019-01-26 15:02 | DRG 483 ==
LOC: EC 18:42 → 4SSUR 21:42 → OBSVTOIN 01-23 15:35
PROVIDERS: ADMIT Orthopaedic Surgery; ATTEND Orthopaedic Surgery
PROC: 0PSDXZZ Reposition Left Humeral Head, External Approach (ICD-10-PCS; 2019-01-22)
PROC: 0RRK00Z Replacement of Left Shoulder Joint with Reverse Ball and Socket Synthetic Substitute, Open Approach (ICD-10-PCS; principal; 2019-01-22 12:00)
DX: S42.242A 4-part fracture of surgical neck of left humerus, initial encounter for closed fracture (principal); S02.2XXA Fracture of nasal bones, initial encounter for closed fracture; S80.211A Abrasion, right knee, initial encounter; W01.0XXA Fall on same level from slipping, tripping and stumbling without subsequent striking against object, initial encounter; Y93.K1 Activity, walking an animal; D72.829 Elevated white blood cell count, unspecified; E03.9 Hypothyroidism, unspecified; E11.9 Type 2 diabetes mellitus without complications; E78.5 Hyperlipidemia, unspecified; I10 Essential (primary) hypertension; I25.10 Atherosclerotic heart disease of native coronary artery without angina pectoris; I44.0 Atrioventricular block, first degree; S00.12XA Contusion of left eyelid and periocular area, initial encounter; S00.11XA Contusion of right eyelid and periocular area, initial encounter; Z88.2 Allergy status to sulfonamides; Z87.19 Personal history of other diseases of the digestive system; Z90.49 Acquired absence of other specified parts of digestive tract; Z90.710 Acquired absence of both cervix and uterus; Z79.82 Long term (current) use of aspirin; Z79.84 Long term (current) use of oral hypoglycemic drugs; Z79.890 Hormone replacement therapy; Z79.899 Other long term (current) drug therapy; Z87.891 Personal history of nicotine dependence; S00.83XA Contusion of other part of head, initial encounter
CPT/HCPCS: 12011; 36415; 51702; 64415; 70450; 70486; 71045; 72125; 72170; 76942; 80053; 84484; 85025; 85610; 85730; 86850; 86900; 86901; 88305; 88311; 93005; 94760; 94762; 96361; 96374; 96375; 96376; 99285

== ENCOUNTER → 2019-03-22 | Outpatient (CLI) | payer BC, MEDICARE ==
--- NOTE | 2019-03-22 15:46 | XR ---
EXAMINATION TYPE: XR chest 2V DATE OF EXAM: 03/22/2019 COMPARISON: Chest x-ray January 21, 2019 HISTORY: Cough. TECHNIQUE: Frontal and lateral views of the chest are obtained. FINDINGS: There is some chronic parenchymal change without suspicious new focal air space opacity, p leural effusion, or pneumothorax seen. The cardiac silhouette size is mildly enlarged less prominent versus prior. Surgical change left shoulder level is new from prior.. IMPRESSION: Chronic parenchymal changes and mild cardiomegaly without suspicious new acute pulmonary process.
[2019-03-22 15:59] LABS: Basophils # (A) 0.1 k/uL (0-0.2); Basophils % (A) 1 %; Eosinophils # (A) 0.2 k/uL (0-0.7); Eosinophils % (A) 2 %; HGB 10.8 gm/dL (11.4-16.0); Hypochromasia Slight; Lymphocytes # (A) 1.5 k/uL (1.0-4.8); Lymphocytes % (A) 18 %; MCH 28.8 pg (25.0-35.0); MCHC 29.9 g/dL (31.0-37.0); MCV 96.3 fL (80.0-100.0); Mean Platelet Volume 8.2; Monocytes # (A) 0.6 k/uL (0-1.0); Monocytes % (A) 7 %; Neutrophils # (A) 5.6 k/uL (1.3-7.7); Neutrophils % (A) 70 %; Platelet Count 435 k/uL (150-450); RBC 3.74 m/uL (3.80-5.40); RDW 15.5 % (11.5-15.5); WBC 8.1 k/uL (3.8-10.6)
[2019-03-22 23:42] LABS: African American GFR (CKD) 54.1 (60.0-200.0); Anion Gap 9.2 mmol/L (4.00-12.00); BUN/Creat Ratio 16.36 Ratio (12.00-20.00); Calcium 9.5 mg/dL (8.7-10.3); Carbon Dioxide 25.8 mmol/L (21.6-31.8); Non-African American GFR(CKD) 46.7 (60.0-200.0); Potassium 4.6 mmol/L (3.5-5.5)
== END | disposition home or self-care (01) ==
LOC: LABWHC1 15:02
PROVIDERS: ATTEND Family Medicine
DX: R91.8 Other nonspecific abnormal finding of lung field (principal); E11.9 Type 2 diabetes mellitus without complications; I11.9 Hypertensive heart disease without heart failure
CPT/HCPCS: 36415; 71046; 80048; 85025

== ENCOUNTER 2020-12-18 17:48 | Inpatient (IN) | payer MEDICARE, BC ==
[2020-12-18] MEDS ORDERED: MORPHINE SULFATE 4 MG/ML SYRINGE IV STA (18:14)
[2020-12-18] MEDS ORDERED: SODIUM CHLORIDE 0.9% 1,000 ML IV STA (18:14)
--- NOTE | 2020-12-18 18:17 | ED ---
General Adult HPI - General Chief complaint: Fall Stated complaint: fall Time Seen by Provider: 12/18/20 17:52 Source: patient, EMS Mode of arrival: EMS Limitations: no limitations - History of Present Illness Initial comments: Dictation was produced using [employer] dictation software. please excuse any grammatical, word or spelling errors. Chief Complaint: 85-year-old female with past medical history of hypertension presents to the emergency department after fall History of Present Illness: 85-year-old female she was with her dog. She was holding her dog connected to lesion. She was bending over to pull out a weed when the dog pulled causing her to fall landing in her right side. Patient states that after the fall she experienced immediate right lower extremity pain. EMS was called patient is brought to the emergency department. Her leg was found to be externally rotated and shortened. His any numbness or paresthesias to the lower extremities. She does have history of orthopedic surgical care for treatment of shoulder arthroplasty. She has no previous history of hip surgery. She has no neck pain. No head pain no loss of consciousness. She does not take any anticoagulation medications. The ROS documented in this emergency department record has been reviewed and confirmed by me. Those systems with pertinent positive or negative responses have been documented in the HPI. All other systems are other negative and/or noncontributory. PHYSICAL EXAM: General Impression: Alert and oriented x3, not in acute distress HEENT: Normocephalic atraumatic, extra-ocular movements intact, pupils equal and reactive to light bilaterally, mucous membranes moist. Cardiovascular: Heart regular rate and rhythm Chest: Able to complete full sentences, no retractions, no tachypnea Abdomen: abdomen soft, non-tender, non-distended, no organomegaly Musculoskeletal: Pulses present and equal in all extremities, no peripheral edema, shortened and externally rotated right lower extremity, tenderness to palpation in gross deformity at the right hip Motor: no focal deficits noted Neurological: CN II-XII grossly intact, no focal motor or sensory deficits noted Skin: Intact with no visualized rashes Psych: Normal affect and mood ED course: 85-year-old female presents with clinical presentation consistent with right hip injury after fall. Vital signs upon arrival shows blood pressure to 9/84, rest of vital signs within acceptable limits. Neurovascularly intact to the right lower extremity. No other signs of traumatic injury however given patient's age she is agreeable to computed tomography scan of the head and C- spine. Medicine order for analgesia. Laboratory evaluation obtained showing findings within acceptable limits. Hip x-ray shows intertrochanteric right femur fracture. Computed tomography scan of the head C spines unremarkable. Chest x-ray shows findings concerning for interstitial infiltrates new compared to old exam. Patient is showing signs of respiratory distress. She has no respiratory complaints. Case discussed with [facility] who is willing to accept patients care behalf of [facility]. Patient be nothing by mouth at midnight with medicine consultation. - Related Data Home Medications Medication Instructions Recorded Confirmed Levothyroxine Sodium [Synthroid] 112 mcg PO DAILY 01/08/14 12/18/20 Carvedilol [Coreg] 12.5 mg PO BID 09/24/17 12/18/20 Cyanocobalamin (Vitamin B-12) 1,000 mcg PO DAILY 09/24/17 12/18/20 [Vitamin B-12] Pioglitazone [Actos] 15 mg PO DAILY 09/24/17 12/18/20 lisinopriL [Zestril] 10 mg PO DAILY 09/24/17 12/18/20 Atorvastatin [Lipitor] 20 mg PO HS 09/20/18 12/18/20 Multivitamins, Thera [Multivitamin 1 tab PO DAILY 01/21/19 12/18/20 (formulary)] Cholecalciferol [Vitamin D3 (25 50 mcg PO DAILY 12/18/20 12/18/20 Mcg = 1000 Iu)] Previous Rx's Medication Instructions Recorded Aspirin 81 mg PO BID #30 chewable 01/26/19 Allergies Allergy/AdvReac Type Severity Reaction Status Date / Time orange juice Allergy Rash/Hives Verified 12/18/20 19:14 Sulfa (Sulfonamide Allergy Nausea & Verified 12/18/20 19:14 Antibiotics) Vomiting Review of Systems ROS Statement: Those systems with pertinent positive or pertinent negative responses have been documented in the HPI. ROS Other: All systems not noted in ROS Statement are negative. Past Medical History Past Medical History: Coronary Artery Disease (CAD), Diabetes Mellitus, GI Bleed, Hyperlipidemia, Hypertension, Thyroid Disorder History of Any Multi-Drug Resistant Organisms: None Reported Past Surgical History: Cholecystectomy, Hysterectomy Additional Past Surgical History / Comment(s): carotid artery Past Anesthesia/Blood Transfusion Reactions: No Reported Reaction Past Psychological History: No Psychological Hx Reported Past Alcohol Use History: Rare Past Drug Use History: None Reported General Exam Limitations: no limitations Course Vital Signs 12/18/20 12/18/20 17:49 19:15 Temperature 97 F L Pulse Rate 70 65 Respiratory 18 22 Rate Blood Pressure 209/84 176/71 O2 Sat by Pulse 95 93 L Oximetry Medical Decision Making - Lab Data Result diagrams: 12/18/20 18:27 12/18/20 18:27 Lab Results 12/18/20 12/18/20 12/18/20 Range/Units 18:27 18:27 18:27 WBC 9.2 (3.8-10.6) k/uL RBC 3.66 L (3.80-5.40) m/uL Hgb 12.1 (11.4-16.0) gm/dL Hct 36.2 (34.0-46.0) % MCV 98.9 (80.0-100.0) fL MCH 33.1 (25.0-35.0) pg MCHC 33.5 (31.0-37.0) g/dL RDW 12.9 (11.5-15.5) % Plt Count 237 (150-450) k/uL MPV 9.6 Neutrophils % 68 % Lymphocytes % 20 % Monocytes % 7 % Eosinophils % 3 % Basophils % 0 % Neutrophils # 6.2 (1.3-7.7) k/uL Lymphocytes # 1.9 (1.0-4.8) k/uL Monocytes # 0.6 (0-1.0) k/uL Eosinophils # 0.3 (0-0.7) k/uL Basophils # 0.0 (0-0.2) k/uL PT 10.5 (9.0-12.0) sec INR 1.0 (<1.2) APTT 18.7 L (22.0-30.0) sec Sodium 137 (137-145) mmol/L Potassium 5.4 H (3.5-5.1) mmol/L Chloride 104 (98-107) mmol/L Carbon Dioxide 23 (22-30) mmol/L Anion Gap 10 mmol/L BUN 30 H (7-17) mg/dL Creatinine 1.10 H (0.52-1.04) mg/dL Est GFR (CKD-EPI)AfAm 53 (>60 ml/min/1.73 sqM) Est GFR (CKD-EPI)NonAf 46 (>60 ml/min/1.73 sqM) Glucose 137 H (74-99) mg/dL Calcium 9.3 (8.4-10.2) mg/dL Disposition Clinical Impression: Hip fracture Disposition: ADMITTED IP TO THIS HOSP Condition: Fair Referrals: Mesfin Solis DO [Primary Care Provider] - 1-2 days
[2020-12-18 18:37] LABS: Basophils % (A) 0 %; Eosinophils # (A) 0.3 k/uL (0-0.7); Eosinophils % (A) 3 %; HCT 36.2 % (34.0-46.0); HGB 12.1 gm/dL (11.4-16.0); Lymphocytes # (A) 1.9 k/uL (1.0-4.8); Lymphocytes % (A) 20 %; MCH 33.1 pg (25.0-35.0); MCHC 33.5 g/dL (31.0-37.0); MCV 98.9 fL (80.0-100.0); Mean Platelet Volume 9.6; Monocytes # (A) 0.6 k/uL (0-1.0); Monocytes % (A) 7 %; Neutrophils # (A) 6.2 k/uL (1.3-7.7); Neutrophils % (A) 68 %; Platelet Count 237 k/uL (150-450); RBC 3.66 m/uL (3.80-5.40); RDW 12.9 % (11.5-15.5); WBC 9.2 k/uL (3.8-10.6)
[2020-12-18 18:43] LABS: Potassium 5.4 mmol/L (3.5-5.1)
[2020-12-18] MEDS ORDERED: HYDROmorphone 0.5 MG/0.5 ML SYRINGE IVP STA (18:44)
[2020-12-18 18:46] LABS: Calcium 9.3 mg/dL (8.4-10.2)
[2020-12-18 18:53] LABS: Prothrombin Time 10.5 sec (9.0-12.0)
[2020-12-18 18:55] LABS: Partial Thromboplastin Time 18.7 sec (22.0-30.0)
[2020-12-18] MEDS ORDERED: ONDANSETRON 4 MG/2 ML VIAL IVP STA ×2 (19:21→20:05)
--- NOTE | 2020-12-18 19:27 | CT ---
EXAMINATION TYPE: CT brain ryan camara DATE OF EXAM: 12/18/2020 COMPARISON: 01/21/2019 HISTORY: trauma, fall CT DLP: 1483.6 mGycm Automated exposure control for dose reduction was used. There is cerebral cortical atrophy. There is no mass effect nor midline shift. There is no sign of in tracranial hemorrhage. Calvarium is intact. Skull base is intact. There is normal aeration of the mas toid sinuses. The cervical vertebra have normal alignment. There is degenerative spurring anteriorly at C5-6 and C6 -7. There is no compression fracture. There is multilevel cervical facet arthropathy. Posterior eleme nts are intact. There is multilevel uncovertebral spurring and neural foraminal impingement. IMPRESSION: Cerebral atrophy. No acute intracranial abnormality. No change. Multilevel cervical spondylotic changes. No fracture. No change.
--- NOTE | 2020-12-18 19:31 | XR ---
EXAMINATION TYPE: XR chest 1V portable DATE OF EXAM: 12/18/2020 COMPARISON: 03/22/2019 HISTORY: Chest pain. Fall. TECHNIQUE: Single view FINDINGS: Heart appears enlarged. There is coarsening of the interstitial pulmonary markings. There i s left shoulder prosthesis. There is no pleural effusion. Costophrenic angles are clear. IMPRESSION: Pulmonary interstitial infiltrates are new compared to old exam. I would consider interst itial pneumonia or pulmonary fibrosis. Acute heart failure not excluded.
--- NOTE | 2020-12-18 19:32 | XR ---
EXAMINATION TYPE: XR Hip RT and AP Pelvis DATE OF EXAM: 12/18/2020 COMPARISON: 01/21/2019 HISTORY: Pain TECHNIQUE: 3 views FINDINGS: There is an acute comminuted intertrochanteric fracture right femur. There is no dislocatio n. Pelvic ring is intact. Acetabula appear intact. IMPRESSION: Acute intertrochanteric fracture right femur with coxa vera deformity.
[2020-12-18] MEDS ORDERED: NALOXONE 0.4 MG/ML 1 ML VIAL IV PRN (19:37)
[2020-12-18] MEDS: SODIUM CHLORIDE 0.9% 1,000 ML IV SCH (19:50)
--- NOTE | 2020-12-18 20:02 | XR ---
EXAMINATION TYPE: XR femur RT DATE OF EXAM: 12/18/2020 COMPARISON: 12/18/2020 HISTORY: Pain TECHNIQUE: 4 views FINDINGS: There is comminuted intertrochanteric fracture right femur. There is coxa vera deformity. A cetabulum is intact. Knee joint is intact. IMPRESSION: Comminuted intertrochanteric fracture right femur.
[2020-12-18] MEDS: HYDROmorphone 0.5 MG/0.5 ML SYRINGE IVP PRN (22:25)
[2020-12-19] MEDS: HYDROmorphone 0.5 MG/0.5 ML SYRINGE IVP PRN ×3 (04:09→22:17)
[2020-12-19] MEDS: SODIUM CHLORIDE 0.9% 1,000 ML IV SCH ×2 (06:56→07:52)
[2020-12-19 07:31] LABS: Glucose,Whole Blood 148 mg/dL (75-99)
[2020-12-19] MEDS: ASPIRIN 81 MG PO SCH ×3 (07:52→21:35)
[2020-12-19] MEDS: CYANOCOBALAMIN 500 MCG TAB PO SCH (07:52)
[2020-12-19] MEDS: lisinopriL 10 MG TAB PO SCH (07:53)
[2020-12-19] MEDS: carvediloL 12.5 MG TAB PO SCH ×2 (07:53→21:35)
[2020-12-19] MEDS: LEVOTHYROXINE 112 MCG TAB PO SCH (07:53)
[2020-12-19] MEDS: CHOLECALCIFEROL 25 MCG (1000 IU) TABLET PO SCH (07:53)
[2020-12-19] MEDS: PIOGLITAZONE 15 MG TAB PO SCH (07:53)
[2020-12-19] MEDS: MULTIVITAMINS, THERA 1 EACH TAB PO SCH (07:53)
--- NOTE | 2020-12-19 08:17 | P.HPOR ---
History of Present Illness H&P Date: 12/19/20 Chief Complaint: Right hip fracture Patient is an 85-year-old female who presented to [facility] yesterday evening after sustaining a fall at home. Patient was out in her yard walking her dog when she bent down to pick something up and her grass, the dog and ended up pulling her in the opposite direction which caused her to fall directly onto her right side. She had immediate pain and was unable to weight- bear. EMS was contacted and brought patient to the hospital. Upon arrival, imaging and lab tests were done. Images demonstrated a displaced and comminuted right intertrochanteric femur fracture. I was contacted by the emergency room staff regarding this patient, I was able to review the images. Patient was admitted under our orthopedic care with plan for likely surgical intervention. Patient was evaluated today at bedside, Dr. Alcala was also available to examine the patient. She notes most of the discomfort in the right lower ext remity at this time. She denies any cervical, thoracic lumbar pain. She denies any acute pain in the bilateral upper extremities. She does have a history of a left reverse total shoulder arthroplasty that was somewhat Dr. Farfan for a fracture of the proximal humerus that occurred about 2 years. She denies any pain involving the left lower extremity. She denies any headaches, lightheadedness, shortness of breath, chest pain, nausea vomiting. Review of Systems Constitutional: Reports as per HPI Past Medical History Past Medical History: Coronary Artery Disease (CAD), Diabetes Mellitus, GI Bleed, Hyperlipidemia, Hypertension, Thyroid Disorder History of Any Multi-Drug Resistant Organisms: None Reported Past Surgical History: Cholecystectomy, Hysterectomy Additional Past Surgical History / Comment(s): carotid artery Past Anesthesia/Blood Transfusion Reactions: No Reported Reaction Past Psychological History: No Psychological Hx Reported Smoking Status: Former smoker Past Alcohol Use History: Rare Past Drug Use History: None Reported Medications and Allergies Home Medications Medication Instructions Recorded Confirmed Type Levothyroxine Sodium [Synthroid] 112 mcg PO DAILY 01/08/14 12/18/20 History Carvedilol [Coreg] 12.5 mg PO BID 09/24/17 12/18/20 History Cyanocobalamin (Vitamin B-12) 1,000 mcg PO DAILY 09/24/17 12/18/20 History [Vitamin B-12] Pioglitazone [Actos] 15 mg PO DAILY 09/24/17 12/18/20 History lisinopriL [Zestril] 10 mg PO DAILY 09/24/17 12/18/20 History Atorvastatin [Lipitor] 20 mg PO HS 09/20/18 12/18/20 History Multivitamins, Thera [Multivitamin 1 tab PO DAILY 01/21/19 12/18/20 History (formulary)] Aspirin 81 mg PO BID #30 chewable 01/26/19 12/18/20 Rx Cholecalciferol [Vitamin D3 (25 50 mcg PO DAILY 12/18/20 12/18/20 History Mcg = 1000 Iu)] Allergies Allergy/AdvReac Type Severity Reaction Status Date / Time orange juice Allergy Rash/Hives Verified 12/18/20 19:14 Sulfa (Sulfonamide Allergy Nausea & Verified 12/18/20 19:14 Antibiotics) Vomiting Physical Examination Right lower extremity: No obvious open lesions or sores are present throughout the extremity, there are no significant areas of erythema or soft tissue swelling There is obvious shortening and external rotation of the leg when compared to contralateral side She has generalized pain with palpation of the proximal aspect of the extremity, logroll maneuver reproduces pain, she is unable to straight leg raise she has not point tenderness surrounding the knee, lower leg, foot or ankle Plantar flexion, dorsiflexion, EHL, FHL are intact. Range of motion of the knee and hip were not assessed at this time Calf is soft, no tenderness with palpation Her sensory exam to light touch is intact throughout that extremity, the cells pedis pulses 2+ General orthopedic exam: Well-healed scar on the anterior aspect of the left upper extremity. No point tenderness is appreciated throughout the bilateral upper extremities. No obvious skin changes are noted including open sores or lesions. She is nontender with palpation throughout the cervical, thoracic and lumbar spine No tenderness with palpation throughout the left lower extremity, no open lesi ons or sores are visualized throughout the extremity. Results - Labs Labs: Abnormal Lab Results - Last 24 Hours (Table) 12/18/20 12/18/20 12/18/20 Range/Units 18:27 18:27 18:27 RBC 3.66 L (3.80-5.40) m/uL APTT 18.7 L (22.0-30.0) sec Potassium 5.4 H (3.5-5.1) mmol/L BUN 30 H (7-17) mg/dL Creatinine 1.10 H (0.52-1.04) mg/dL Glucose 137 H (74-99) mg/dL POC Glucose (mg/dL) (75-99) mg/dL 12/19/20 Range/Units 07:29 RBC (3.80-5.40) m/uL APTT (22.0-30.0) sec Potassium (3.5-5.1) mmol/L BUN (7-17) mg/dL Creatinine (0.52-1.04) mg/dL Glucose (74-99) mg/dL POC Glucose (mg/dL) 148 H (75-99) mg/dL H & H 12/18/20 Range/Units 18:27 Hgb 12.1 (11.4-16.0) gm/dL Hct 36.2 (34.0-46.0) % Coagulation 12/18/20 Range/Units 18:27 INR 1.0 (<1.2) Result Diagrams: 12/18/20 18:27 12/18/20 18:27 - Diagnostic results Hip x-ray: report reviewed, image reviewed (X-rays of the pelvis and right hip were reviewed along with right femur x-rays to include the knee. Images demonstrate a three-part right proximal intertrochanteric femur fracture with displacement. No acute osseous center maladies are appreciated throughout the femur or knee.) Assessment and Plan Assessment: Right hip pain Right three-part displaced and comminuted intertrochanteric femur fracture Status post fall from standing History of left proximal humerus fracture status post reverse left total shoulder arthroplasty, stable Hyperkalemia Other medical comorbidities Plan: Dr. Alcala was available today at bedside to discuss treatment options with the patient. We would like to proceed with surgical intervention, more specifically an intramedullary nail of the right proximal femur. Risk and benefits of the procedure were discussed the patient today at bedside, she is in good understanding and would like to proceed. We plan to proceed with procedure on 12/19/2020 Obtain consent Continue nothing by mouth diet at this time Pain control, continue with current medication GI and DVT prophylaxis, will likely begin subcu medication of surgery PT/OT evaluation of her surgery Medical recommendations Further recommendations to follow Time with Patient: Less than 30
[2020-12-19 08:49] LABS: ALT 15 U/L (4-34); AST 22 U/L (14-36); African American GFR (CKD) 82 (>60 ml/min/1.73 sqM); Albumin 3.7 g/dL (3.5-5.0); Albumin/Globulin Ratio 1.4; Alkaline Phosphatase 76 U/L (38-126); Anion Gap 9 mmol/L; Blood Urea Nitrogen 23 mg/dL (7-17); Carbon Dioxide 22 mmol/L (22-30); Chloride 105 mmol/L (98-107); Globulin 2.6 g/dL; Glucose 145 mg/dL (74-99); Non-African American GFR(CKD) 71 (>60 ml/min/1.73 sqM); Potassium 4.7 mmol/L (3.5-5.1); Sodium 136 mmol/L (137-145); Total Bilirubin 0.6 mg/dL (0.2-1.3); Total Protein 6.3 g/dL (6.3-8.2)
[2020-12-19 11:24] LABS: Glucose,Whole Blood 152 mg/dL (75-99)
--- NOTE | 2020-12-19 12:00 | P.CONS ---
History of Present Illness - Reason for Consult Consult date: 12/19/20 Medical management Requesting physician: Baldemar Alcala - Chief Complaint Fall on right hip - History of Present Illness Consultation: This is a pleasant 85-year-old patient, who follows Dr. Solis. Chronic stable medical conditions include coronary artery disease, diabetes, hyperlipidemia, hypertension, hypothyroid. Patient is out in the yard yesterday was bending over, pulling out the weed. She had a dog on a leash. Tox to decided to go on the right and she fell. She hasn't been able to put pressure on the right side. Extremities the ER did confirm a fracture. Patient denies any chest pain or shortness of breath. Normally able to walk at least half a block. No dizziness or lightheadedness. Currently tired. Pain is localized to the right hip. Review of systems: GEN.: Tired EYES: None HEENT: None NECK: None RESPIRATORY: None CARDIOVASCULAR: None GASTROINTESTINAL: None GENITOURINARY: None MUSCULOSKELETAL: Joint pains LYMPHATICS: None HEMATOLOGICAL: None PSYCHIATRY: None NEUROLOGICAL: None Past medical history to include: COPD, hypertension, hyperlipidemia, hypothyroidism thyroidism, diabetes mellitus type 2 Social history: Does smoke in the past. Alcohol rarely. Lives with her . Family history: Reviewed, noncontributory to presentation Physical examination: VITAL SIGNS: 98.7, 79, 18, 179/78, 94% room air GENERAL: BMI 29.8, laying in bed, tired uncomfortable EYES: Pupils equal, conjunctiva normal. HEENT: Extraocular nausea normal oral cavity dry mucous membranes NECK: JVD unable to assess; masses not palpable. HEART: First and second heart sounds are normal; no edema. LUNGS: Respiratory rate normal; clear to auscultation. ABDOMEN: Soft, nontender, liver spleen not palpable, no masses palpable. PSYCH: Patient is tired but able to answer questions. NEUROLOGICAL: No facial asymmetry, cranial nerves grossly intact. Bun sensation grossly intact.,. 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, limited range of motion right hip INVESTIGATIONS, reviewed in the clinical context: Today: Potassium 4.7 Admission labs White count 9.2 hemoglobin 12.1 platelets 237 potassium 5.4 BUN 30 creatinine 1.10 glucose 137 Coronavirus [PCF]: Not detected Chest x-ray film personally reviewed by me-possible chronic changes X-ray hip on the right: Acute IT fractured right femur coxa vera EKG tracing personally reviewed by me-normal sinus rhythm Assessment and plan: -Acute right IT fracture of the femur secondary to fall Patient going on for surgery this afternoon -Coronary artery disease Patient has no active symptoms. Fair exercise tolerance. Needs no further workup prior to surgery. Perioperative monitoring. Continue Coreg 12.5 by mouth twice a day. Aspirin -Hyperlipidemia Lipitor 20 mg daily at bedtime -Essential Hypertension Lisinopril 10 mg daily, Coreg 12.5 by mouth twice a day -Hypothyroidism Synthroid 112 g a day -Abdominal x-ray, suggestive of pulmonary fibrosis We will do computed tomography scan of the chest patient more stable -Diabetes mellitus type 2 Actos. Follow Accu-Cheks. -Vitamin B12 deficiency B12 thousand micrograms daily Cardiovascular perioperative risk assessment: Patient has stable CAD. No active coronary symptoms no chest pain or shortness of breath. Patient has fair exercise tolerance. Able to walk half a block. Patient only on beta boo. No need for any further testing. Perioperative cardiac monitoring with telemetry. Patient is medically stable to proceed for surgery with moderate cardiovascular risk for the same. No contraindications to surgery Home medications to be resumed. Accu-Cheks to be followed. Hyperkalemia was corrected. Care was discussed with the patient and at the bedside. IV fluids. Patient's blood pressure is currently elevated from underlying pain. Thank you Dr. Alcala. Will follow Past Medical History Past Medical History: Coronary Artery Disease (CAD), Diabetes Mellitus, GI Bleed, Hyperlipidemia, Hypertension, Thyroid Disorder History of Any Multi-Drug Resistant Organisms: None Reported Past Surgical History: Cholecystectomy, Hysterectomy Additional Past Surgical History / Comment(s): carotid artery Past Anesthesia/Blood Transfusion Reactions: No Reported Reaction Past Psychological History: No Psychological Hx Reported Smoking Status: Former smoker Past Alcohol Use History: Rare Past Drug Use History: None Reported Medications and Allergies Home Medications Medication Instructions Recorded Confirmed Type Levothyroxine Sodium [Synthroid] 112 mcg PO DAILY 01/08/14 12/18/20 History Carvedilol [Coreg] 12.5 mg PO BID 09/24/17 12/18/20 History Cyanocobalamin (Vitamin B-12) 1,000 mcg PO DAILY 09/24/17 12/18/20 History [Vitamin B-12] Pioglitazone [Actos] 15 mg PO DAILY 09/24/17 12/18/20 History lisinopriL [Zestril] 10 mg PO DAILY 09/24/17 12/18/20 History Atorvastatin [Lipitor] 20 mg PO HS 09/20/18 12/18/20 History Multivitamins, Thera [Multivitamin 1 tab PO DAILY 01/21/19 12/18/20 History (formulary)] Aspirin 81 mg PO BID #30 chewable 01/26/19 12/18/20 Rx Cholecalciferol [Vitamin D3 (25 50 mcg PO DAILY 12/18/20 12/18/20 History Mcg = 1000 Iu)] Allergies Allergy/AdvReac Type Severity Reaction Status Date / Time orange juice Allergy Rash/Hives Verified 12/18/20 19:14 Sulfa (Sulfonamide Allergy Nausea & Verified 12/18/20 19:14 Antibiotics) Vomiting Physical Exam Vitals: Vital Signs Temp Pulse Pulse Resp BP BP Pulse Ox 12/19/20 07:21 98.7 F 79 18 179/78 94 L 12/19/20 02:00 98.6 F 77 18 153/77 96 12/18/20 21:58 97.7 F 66 18 184/74 94 L 12/18/20 20:59 68 20 165/83 97 12/18/20 20:00 68 20 95 12/18/20 19:15 65 22 176/71 93 L 12/18/20 17:49 97 F L 70 18 209/84 95 Intake and Output 12/18/20 12/19/20 12/19/20 22:59 06:59 14:59 Output Total 300 500 Balance -300 -500 Output: Urine 300 500 Uretheral (Navarrete) 300 Other: Weight 69.4 kg Results CBC & Chem 7: 12/18/20 18:27 12/19/20 08:23 Labs: Abnormal Lab Results - Last 24 Hours (Table) 12/18/20 12/18/20 12/18/20 Range/Units 18:27 18:27 18:27 RBC 3.66 L (3.80-5.40) m/uL APTT 18.7 L (22.0-30.0) sec Sodium (137-145) mmol/L Potassium 5.4 H (3.5-5.1) mmol/L BUN 30 H (7-17) mg/dL Creatinine 1.10 H (0.52-1.04) mg/dL Glucose 137 H (74-99) mg/dL POC Glucose (mg/dL) (75-99) mg/dL 12/19/20 12/19/20 Range/Units 07:29 08:23 RBC (3.80-5.40) m/uL APTT (22.0-30.0) sec Sodium 136 L (137-145) mmol/L Potassium (3.5-5.1) mmol/L BUN 23 H (7-17) mg/dL Creatinine (0.52-1.04) mg/dL Glucose 145 H (74-99) mg/dL POC Glucose (mg/dL) 148 H (75-99) mg/dL
[2020-12-19] MEDS: ENOXAPARIN 40 MG/0.4 ML SYRINGE SQ SCH (12:52)
[2020-12-19] MEDS: INSULIN ASPART (NovoLOG) 100 UNIT/ML VIAL SQ SCH ×3 (12:52→23:21)
[2020-12-19] MEDS: ONDANSETRON 4 MG/2 ML VIAL IVP PRN (14:58)
[2020-12-19 16:21] LABS: Glucose,Whole Blood 138 mg/dL (75-99)
[2020-12-19] MEDS ORDERED: IV FLUID CONTINUATION 1,000 ML IV ONE (16:51)
[2020-12-19 17:02] LABS: Glucose,Whole Blood 153 mg/dL (75-99)
[2020-12-19] MEDS ORDERED: MIDAZOLAM 2 MG/2 ML VIAL ONE (17:34)
[2020-12-19] MEDS ORDERED: PROPOFOL 10 MG/ML 20 ML VIAL IV ONE (17:34)
[2020-12-19] MEDS ORDERED: fentaNYL (PF) 50 MCG/ML 2 ML AMP ONE (17:34)
[2020-12-19] MEDS ORDERED: KETAMINE 10 MG/ML 20 ML VIAL ONE (17:34)
--- NOTE | 2020-12-19 17:42 | P.PN ---
Progress Note - Text Progress Note Date: 12/19/20 pt s/e in pre op area all protocols followed. Dept of anesthesia and medicine deemed fit for surgery. Discussed again with pt. Confirmed NPO. Consent confirmed. Attempted call to next of kin, no answer. Will attempt again after procedure. Pt ready and willing to proceed.
[2020-12-19] MEDS ORDERED: SODIUM CHLORIDE 0.9% 1,000 ML IV ONE ×2 (18:05→20:52)
[2020-12-19] MEDS ORDERED: ceFAZolin 1,000 MG in SODIUM CHLORIDE 0.9% 1,000 ML IRRIGATION ONE (18:34)
--- NOTE | 2020-12-19 20:01 | P.PN ---
Progress Note - Text Progress Note Date: 12/19/20 Brief Post Op: Surgeon: Cari Assist: Dr. Jean Pre op dx; right 3 part intertrochanteric fracture Post op dx: Same Procedure: Or medullary nail fixation right hip Anesthesia: Spinal with sedation EBL: 100 mL Fluids: Thousand cc UO: 250 mL Dispo: Stable to PACU Post op Plan: Weightbearing as tolerated right lower extremity Encourage ambulation with assist IS 10x/hr Teds/SCDs Pain control PT OT
[2020-12-19] MEDS ORDERED: hydrALAZINE HCL 20 MG/ML 1 ML VIAL ONE (20:05)
[2020-12-19] MEDS ORDERED: hydrALAZINE HCL 20 MG/ML 1 ML VIAL IVP ONE (20:11)
[2020-12-19] MEDS ORDERED: DEXAMETHASONE SOD PHOSPHATE 10 MG/ML 1 ML VIAL IV ONE (20:30)
[2020-12-19] MEDS ORDERED: ONDANSETRON 4 MG/2 ML VIAL IVP ONE (20:30)
[2020-12-19] MEDS ORDERED: PROMETHAZINE INJ 25 MG/ML 1 ML VIAL IVPB ONE (20:35)
[2020-12-19 21:26] LABS: Glucose,Whole Blood 161 mg/dL (75-99)
[2020-12-19] MEDS: ATORVASTATIN 20 MG TAB PO SCH (21:35)
--- NOTE | 2020-12-19 22:38 | XR ---
EXAMINATION TYPE: XR femur RT DATE OF EXAM: 12/19/2020 COMPARISON: NONE HISTORY: Surgery TECHNIQUE: 4 views FINDINGS: 12 fluoroscopic images were obtained that show placement of intramedullary josé miguel and transver se screws fixing the intertrochanteric fracture of the right femur in anatomic position. IMPRESSION: No complicating process seen.
[2020-12-20] MEDS: HYDROmorphone 0.5 MG/0.5 ML SYRINGE IVP PRN ×2 (03:35→17:54)
[2020-12-20] MEDS: SODIUM CHLORIDE 0.9% 1,000 ML IV SCH ×3 (04:45→23:11)
--- NOTE | 2020-12-20 07:04 | FL ---
EXAMINATION TYPE: FL guidance operating room DATE OF EXAM: 12/19/2020 HISTORY: Fluoroscopy time 1.3 minutes of fluoroscopy provided. IMPRESSION: 1. Fluoroscopy time.
[2020-12-20 07:21] LABS: Glucose,Whole Blood 173 mg/dL (75-99)
[2020-12-20] MEDS: CHOLECALCIFEROL 25 MCG (1000 IU) TABLET PO SCH (08:13)
[2020-12-20] MEDS: carvediloL 12.5 MG TAB PO SCH ×2 (08:13→20:31)
[2020-12-20] MEDS: lisinopriL 10 MG TAB PO SCH (08:13)
[2020-12-20] MEDS: HYDROcodone/APAP 5-325MG 1 EACH TAB PO PRN ×2 (08:14→13:30)
[2020-12-20] MEDS: LEVOTHYROXINE 112 MCG TAB PO SCH (08:14)
[2020-12-20] MEDS: PIOGLITAZONE 15 MG TAB PO SCH (08:14)
[2020-12-20] MEDS: ASPIRIN 81 MG PO SCH ×2 (08:14→20:31)
[2020-12-20] MEDS: CYANOCOBALAMIN 500 MCG TAB PO SCH (08:14)
[2020-12-20] MEDS: MULTIVITAMINS, THERA 1 EACH TAB PO SCH (08:14)
[2020-12-20] MEDS: ENOXAPARIN 40 MG/0.4 ML SYRINGE SQ SCH (08:14)
[2020-12-20] MEDS: INSULIN ASPART (NovoLOG) 100 UNIT/ML VIAL SQ SCH ×4 (08:14→20:30)
[2020-12-20 11:01] LABS: Basophils % (A) 0 %; Eosinophils % (A) 0 %; HGB 8.3 gm/dL (11.4-16.0); Lymphocytes # (A) 1.1 k/uL (1.0-4.8); Lymphocytes % (A) 8 %; MCH 33.3 pg (25.0-35.0); MCHC 33.1 g/dL (31.0-37.0); MCV 100.5 fL (80.0-100.0); Mean Platelet Volume 10.6; Monocytes # (A) 0.9 k/uL (0-1.0); Monocytes % (A) 6 %; Neutrophils # (A) 11.4 k/uL (1.3-7.7); Neutrophils % (A) 85 %; Platelet Count 203 k/uL (150-450); RBC 2.48 m/uL (3.80-5.40); RDW 13.2 % (11.5-15.5); WBC 13.5 k/uL (3.8-10.6)
[2020-12-20 11:35] LABS: Glucose,Whole Blood 179 mg/dL (75-99)
--- NOTE | 2020-12-20 12:37 | P.PN ---
Subjective Progress Note Date: 12/20/20 Principal diagnosis: status post intramedullary nail right intertrochanteric femur fracture Patient evaluated today at bedside, is present. She is resting comfortably in her hospital bed. She was able to get up to the chair with the help of physical therapy and use of a walker. She has had some spasming noted in the upper part of the right lower extremity. Currently she denies any headaches, lightheadedness, chest pain or shortness of breath. The urinary catheter was removed today. Objective - Vital Signs Vital signs: Vital Signs Temp 98.4 F 12/20/20 07:46 Pulse 80 12/20/20 07:46 Resp 18 12/20/20 07:46 BP 164/67 12/20/20 07:46 Pulse Ox 92 L 12/20/20 09:44 Intake & Output 12/19/20 12/20/20 12/20/20 18:59 06:59 18:59 Intake Total 205 150 Output Total 1050 Balance 2050 -900 Weight 69.4 kg 69.4 kg Intake: IV 1251 150 Intake, IV Titration 800 Amount Sodium Chloride 0.9% 1, 800 000 ml @ 100 mls/hr IV . Q10H AMAYA Rx#:[id number] Output: Urine 800 Estimated Blood Loss 250 Other: Voiding Method Indwelling Catheter Indwelling Catheter - Exam Right lower extremity: Postop bandages in good position and condition, there is no obvious saturation Mild soft tissue swelling present in the right lower extremity, no significant ecchymosis present. Compartments of the leg are soft Calf is soft, no tenderness with palpation Plantar flexion, dorsiflexion, EHL, FHL are intact. Hip and knee range of motion were not assessed Log roll maneuver reproduces minimal discomfort Sensory exam to light touch is intact of the extremity, dorsalis pedis pulses 2+ - Labs CBC & Chem 7: 12/20/20 10:23 12/19/20 08:23 Labs: Abnormal Lab Results - Last 24 Hours (Table) 12/19/20 12/19/20 12/19/20 Range/Units 16:20 17:00 21:24 WBC (3.8-10.6) k/uL RBC (3.80-5.40) m/uL Hgb (11.4-16.0) gm/dL Hct (34.0-46.0) % MCV (80.0-100.0) fL Neutrophils # (1.3-7.7) k/uL POC Glucose (mg/dL) 138 H 153 H 161 H (75-99) mg/dL 12/20/20 12/20/20 12/20/20 Range/Units 07:20 10:23 11:34 WBC 13.5 H (3.8-10.6) k/uL RBC 2.48 L (3.80-5.40) m/uL Hgb 8.3 L D (11.4-16.0) gm/dL Hct 25.0 L (34.0-46.0) % MCV 100.5 H (80.0-100.0) fL Neutrophils # 11.4 H (1.3-7.7) k/uL POC Glucose (mg/dL) 173 H 179 H (75-99) mg/dL Assessment and Plan Assessment: Postoperative day #1 status post intramedullary nail three-part right intertrochanteric femur fracture Acute blood loss anemia, expected surgical outcome Other medical comorbidities Plan: Pain control, continue with current medication. I did add Flexeril 5 mg per bedtime to help with spasms GI prophylaxis, continue subcu medication during hospital stay Continue to monitor hemoglobin, may transfuse 1 unit if she does show active signs of anemia and if her hemoglobin continues to decrease Weight-bear as tolerated with walker Encourage incentive spirometer Continue work with physical therapy We will change dressing on 12/21/2020 Other medical specialty recommendations We will continue to follow during inpatient stay Time with Patient: Less than 30
[2020-12-20 16:54] LABS: Glucose,Whole Blood 164 mg/dL (75-99)
--- NOTE | 2020-12-20 17:20 | P.PN ---
Progress Note - Text Progress Note Date: 12/20/20 - Chief Complaint Fall on right hip - History of Present Illness Consultation: This is a pleasant 85-year-old patient, who follows Dr. Solis. Chronic stable medical conditions include coronary artery disease, diabetes, hyperlipidemia, hypertension, hypothyroid. Patient is out in the yard yesterday was bending over, pulling out the weed. She had a dog on a leash. Tox to decided to go on the right and she fell. She hasn't been able to put pressure on the right side. Extremities the ER did confirm a fracture. Patient denies any chest pain or shortness of breath. Normally able to walk at least half a block. No dizziness or lightheadedness. Currently tired. Pain is localized to the right hip. December 20: Status post IM nailing of the right ID femur fracture. Sitting up in bed. Eating her lunch. at bedside. Some pain present. No nausea vomiting. Review of systems: Was done for constitutional, cardiovascular, GI, pulmonary. relevant finding as above Active Medications Hydrocodone Bitart/Acetaminophen (Hydrocodone/Apap 5-325mg 1 Each Tab) 1 each PO Q4HR PRN PRN Reason: Pain Last Admin: 12/20/20 13:30 Dose: 1 each Documented by: Aspirin (Aspirin 81 Mg) 81 mg PO BID [facility] Last Admin: 12/20/20 08:14 Dose: 81 mg Documented by: Atorvastatin Calcium (Atorvastatin 20 Mg Tab) 20 mg PO HS [facility] Last Admin: 12/19/20 21:35 Dose: 20 mg Documented by: Carvedilol (Carvedilol 12.5 Mg Tab) 12.5 mg PO BID [facility] Last Admin: 12/20/20 08:13 Dose: 12.5 mg Documented by: Cholecalciferol (Cholecalciferol 25 Mcg (1000 Iu) Tablet) 50 mcg PO DAILY [facility] Last Admin: 12/20/20 08:13 Dose: 50 mcg Documented by: Cyanocobalamin (Cyanocobalamin 500 Mcg Tab) 1,000 mcg PO DAILY [facility] Last Admin: 12/20/20 08:14 Dose: 1,000 mcg Documented by: Cyclobenzaprine HCl (Cyclobenzaprine 5 Mg Tab) 5 mg PO HS PRN PRN Reason: Muscle Spasm Enoxaparin Sodium (Enoxaparin 40 Mg/0.4 Ml Syringe) 40 mg SQ DAILY [facility] Last Admin: 12/20/20 08:14 Dose: 40 mg Documented by: Hydromorphone HCl (Hydromorphone 0.5 Mg/0.5 Ml Syringe) 0.5 mg IVP Q3HR PRN PRN Reason: Moderate Pain Last Admin: 12/20/20 03:35 Dose: 0.5 mg Documented by: Sodium Chloride (Saline 0.9%) 1,000 mls @ 100 mls/hr IV .Q10H [facility] Last Admin: 12/20/20 11:55 Dose: Not Given Documented by: Cefazolin Sodium 2 gm/ Sodium (Chloride) 50 mls @ 100 mls/hr IVPB Q8HR [facility] Last Admin: 12/20/20 17:05 Dose: 100 mls/hr Documented by: Insulin Aspart (Insulin Aspart (Novolog) 100 Unit/Ml Vial) 0 unit SQ ACHS [facility]; Protocol Last Admin: 12/20/20 17:04 Dose: 1 unit Documented by: Levothyroxine Sodium (Levothyroxine 112 Mcg Tab) 112 mcg PO DAILY@0630 [facility] Last Admin: 12/20/20 08:14 Dose: 112 mcg Documented by: Lisinopril (Lisinopril 10 Mg Tab) 10 mg PO DAILY [facility] Last Admin: 12/20/20 08:13 Dose: 10 mg Documented by: Multivitamins (Multivitamins, Thera 1 Each Tab) 1 each PO DAILY [facility] Last Admin: 12/20/20 08:14 Dose: 1 each Documented by: Naloxone HCl (Naloxone 0.4 Mg/Ml 1 Ml Vial) 0.2 mg IV Q2M PRN PRN Reason: Opioid Reversal Ondansetron HCl (Ondansetron 4 Mg/2 Ml Vial) 4 mg IVP Q6HR PRN PRN Reason: Nausea And Vomiting Last Admin: 12/19/20 14:58 Dose: 4 mg Documented by: Pioglitazone HCl (Pioglitazone 15 Mg Tab) 15 mg PO DAILY [facility] Last Admin: 12/20/20 08:14 Dose: 15 mg Documented by: Past medical history to include: COPD, hypertension, hyperlipidemia, hypothyroidism thyroidism, diabetes mellitus type 2 Social history: Does smoke in the past. Alcohol rarely. Lives with her . Family history: Reviewed, noncontributory to presentation Physical examination: VITAL SIGNS: 98.4, 80, 18, 164/67, 91% on 3 teachers GENERAL: Sitting up in bed, eating EYES: Pupils equal, conjunctiva normal. NECK: JVD unable to assess; masses not palpable. HEART: First and second heart sounds are normal; no edema. LUNGS: Respiratory rate normal; clear to auscultation. ABDOMEN: Soft, nontender, liver spleen not palpable, no masses palpable. PSYCH: Patient is tired but able to answer questions. 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 Dressing over the right hip INVESTIGATIONS, reviewed in the clinical context: December 20: White count 13.5 hemoglobin 8.3 December 19: Potassium 4.7 Admission labs White count 9.2 hemoglobin 12.1 platelets 237 potassium 5.4 BUN 30 creatinine 1.10 glucose 137 Coronavirus [PCF]: Not detected Chest x-ray film personally reviewed by me-possible chronic changes X-ray hip on the right: Acute IT fractured right femur coxa vera EKG tracing personally reviewed by me-normal sinus rhythm Assessment and plan: -Acute right IT fracture of the femur secondary to fall, IM nailing on December 19: PTOT -Coronary artery disease Coreg 12.5 by mouth twice a day. Aspirin -Hyperlipidemia Lipitor 20 mg daily at bedtime -Essential Hypertension Lisinopril 10 mg daily, Coreg 12.5 by mouth twice a day -Hypothyroidism Synthroid 112 g a day -Abnormal chest x-ray, suggestive of pulmonary fibrosis High resolution CT chest in the morning -Diabetes mellitus type 2 , oral hypoglycemic Actos. Follow Accu-Cheks. -Vitamin B12 deficiency B12 thousand micrograms daily -Acute postprocedure blood loss anemia, expected from surgery Ferrous sulfate 325 mg twice a day We'll order a high resolution computed tomography scan of chest in the morning to assess for pulmonary fibrosis Thank you Dr. Alcala. Will follow
[2020-12-20] MEDS: FERROUS SULFATE 325 MG TAB PO SCH (17:38)
[2020-12-20] MEDS ORDERED: LACTULOSE 20 GM/30 ML CUP PO PRN (17:40)
[2020-12-20 20:13] LABS: Glucose,Whole Blood 144 mg/dL (75-99)
[2020-12-20] MEDS: ATORVASTATIN 20 MG TAB PO SCH (20:31)
[2020-12-20] MEDS: CYCLOBENZAPRINE 5 MG TAB PO PRN (20:56)
[2020-12-21] MEDS: HYDROcodone/APAP 5-325MG 1 EACH TAB PO PRN ×5 (01:31→20:39)
[2020-12-21] MEDS: LEVOTHYROXINE 112 MCG TAB PO SCH (05:21)
[2020-12-21 06:53] LABS: Glucose,Whole Blood 163 mg/dL (75-99)
[2020-12-21] MEDS: MULTIVITAMINS, THERA 1 EACH TAB PO SCH (07:33)
[2020-12-21] MEDS: carvediloL 12.5 MG TAB PO SCH ×2 (07:33→20:39)
[2020-12-21] MEDS: CYANOCOBALAMIN 500 MCG TAB PO SCH (07:33)
[2020-12-21] MEDS: ASPIRIN 81 MG PO SCH ×2 (07:33→20:39)
[2020-12-21] MEDS: CHOLECALCIFEROL 25 MCG (1000 IU) TABLET PO SCH (07:34)
[2020-12-21] MEDS: ENOXAPARIN 40 MG/0.4 ML SYRINGE SQ SCH (07:34)
[2020-12-21] MEDS: PIOGLITAZONE 15 MG TAB PO SCH (07:34)
[2020-12-21] MEDS: lisinopriL 10 MG TAB PO SCH (07:34)
[2020-12-21] MEDS: INSULIN ASPART (NovoLOG) 100 UNIT/ML VIAL SQ SCH ×4 (07:34→21:55)
[2020-12-21] MEDS: FERROUS SULFATE 325 MG TAB PO SCH ×2 (07:34→18:06)
[2020-12-21] MEDS: SODIUM CHLORIDE 0.9% 1,000 ML IV SCH (07:36)
[2020-12-21] MEDS: ONDANSETRON 4 MG/2 ML VIAL IVP PRN (09:29)
--- NOTE | 2020-12-21 10:27 | CT ---
EXAMINATION TYPE: CT chest wo con DATE OF EXAM: 12/21/2020 COMPARISON: No prior CT chest HISTORY: Possible pulmonary fibrosis TECHNIQUE: CT scan of the chest performed without contrast CT DLP: 471.8 mGycm Automated exposure control for dose reduction was used. FINDINGS: There are patchy and linear bibasilar opacities and trace bilateral left greater than right pleural e ffusions. There is no pneumothorax. Patent central and peripheral bronchial tree. Prominent mediastin al lymph nodes. No lymph nodes larger than 1 cm appreciated in the mediastinum, christina or axilla. Flory l heart size with no pericardial effusion. Low attenuation of the cardiac chambers is noted. Nonaneur ysmal aorta with scattered wall calcifications. Cholecystectomy clips seen in the right upper quadrant. Tiny calcification seen in the bilateral kidn eys. Fluid-filled dilated esophagus with moderate size gastroesophageal hiatal hernia. Compression fracture deformity involving the superior endplate of L1 vertebral body. Scoliosis. Multi level narrowing of the intervertebral spaces. Calcifications seen in the posterior aspect of the spin al canal at the level of T5-T7 could represent ligamentum flavum calcification or other calcification . IMPRESSION: 1. PATCHY AND LINEAR BIBASILAR OPACITIES COULD BE ON THE BASIS OF MULTIFOCAL PNEUMONIA AND/OR ATELECT ASIS. 2. TRACE BILATERAL LEFT GREATER THAN RIGHT PLEURAL EFFUSION 3. MODERATE-SIZED GASTROESOPHAGEAL HIATAL HERNIA. 4. COMPRESSION FRACTURE DEFORMITIES L1. 5.CALCIFICATIONS SEEN IN THE POSTERIOR ASPECT OF THE SPINAL CANAL AT THE LEVEL OF T5-T7 COULD REPRESE NT LIGAMENTUM FLAVUM CALCIFICATION OR OTHER CALCIFICATION.
[2020-12-21 11:32] LABS: Glucose,Whole Blood 178 mg/dL (75-99)
--- NOTE | 2020-12-21 11:55 | P.PN ---
Subjective Progress Note Date: 12/21/20 Principal diagnosis: Status post intramedullary nail right intertrochanteric femur fracture Patient evaluated today at bedside, she is resting in her hospital chair. She is having a little bit of nausea today. Awaiting CBC results from earlier this morning. She states the pain is controlled currently. Currently she denies any headaches, lightheadedness, chest pain or shortness of breath. The urinary catheter was removed today. Objective - Vital Signs Vital signs: Vital Signs Temp 97.9 F 12/21/20 08:00 Pulse 76 12/21/20 08:00 Resp 18 12/21/20 08:00 BP 158/69 12/21/20 08:00 Pulse Ox 96 12/21/20 08:00 Intake & Output 12/20/20 12/21/20 12/21/20 18:59 06:59 18:59 Other: Voiding Method Indwelling Catheter Bedside Commode # Voids 1 - Exam Right lower extremity: Postop bandages in good position and condition, there is no obvious saturation. Mild soft tissue swelling present in the right lower extremity, no significant ecchymosis present. Compartments of the leg are soft Calf is soft, no tenderness with palpation Plantar flexion, dorsiflexion, EHL, FHL are intact. Hip and knee range of motion were not assessed Log roll maneuver reproduces minimal discomfort Sensory exam to light touch is intact of the extremity, dorsalis pedis pulses 2+ - Labs CBC & Chem 7: 12/20/20 10:23 12/19/20 08:23 Labs: Abnormal Lab Results - Last 24 Hours (Table) 12/20/20 12/20/20 12/21/20 Range/Units 16:52 20:11 06:50 POC Glucose (mg/dL) 164 H 144 H 163 H (75-99) mg/dL 12/21/20 Range/Units 11:26 POC Glucose (mg/dL) 178 H (75-99) mg/dL Assessment and Plan Assessment: Postoperative day #2 status post intramedullary nail three-part right intertrochanteric femur fracture Acute blood loss anemia, expected surgical outcome Other medical comorbidities Plan: Pain control, continue with current medication. GI prophylaxis, continue subcu medication during hospital stay Awaiting most recent hemoglobin, continue use of the ferrous sulfate 325 mg twice a day Weight-bear as tolerated with walker Encourage incentive spirometer Continue work with physical therapy Other medical specialty recommendations We will continue to follow during inpatient stay Time with Patient: Less than 30
[2020-12-21 12:09] LABS: Basophils # (A) 0.02 X 10*3/uL (0.00-0.10); Basophils % (A) 0.1 %; Eosinophils # (A) 0.05 X 10*3/uL (0.04-0.35); Eosinophils % (A) 0.3 %; Lymphocytes % (A) 11.6 %; Monocytes # (A) 2.35 X 10*3/uL (0.20-1.00); Monocytes % (A) 16.1 %; Neutrophils % (A) 71.1 %
[2020-12-21 12:12] LABS: HCT 21.1 % (37.2-46.3); HGB 6.6 g/dL (12.0-15.0); MCHC 31.3 g/dL (32.0-37.0); MCV 99.1 fL (80.0-97.0); Mean Platelet Volume 12.9 fL (9.5-12.2); Platelet Count 183 X 10*3/uL (140-440); RBC 2.13 X 10*6/uL (4.10-5.20); RDW 13.8 % (11.5-14.5); WBC 14.63 X 10*3/uL (4.50-10.00)
[2020-12-21] MEDS ORDERED: FUROSEMIDE 10 MG/ML 4 ML VIAL IV STA (15:26)
--- NOTE | 2020-12-21 15:27 | P.PN ---
Progress Note - Text Progress Note Date: 12/21/20 - Chief Complaint Fall on right hip - History of Present Illness Consultation: This is a pleasant 85-year-old patient, who follows Dr. Solis. Chronic stable medical conditions include coronary artery disease, diabetes, hyperlipidemia, hypertension, hypothyroid. Patient is out in the yard yesterday was bending over, pulling out the weed. She had a dog on a leash. Tox to decided to go on the right and she fell. She hasn't been able to put pressure on the right side. Extremities the ER did confirm a fracture. Patient denies any chest pain or shortness of breath. Normally able to walk at least half a block. No dizziness or lightheadedness. Currently tired. Pain is localized to the right hip. December 20: Status post IM nailing of the right ID femur fracture. Sitting up in bed. Eating her lunch. at bedside. Some pain present. No nausea vomiting. December 21: Sitting up in bed. Comfortable. Oral intake fair. at the bedside. Pain control. Hemoglobin 6.6 Review of systems: Was done for constitutional, cardiovascular, GI, pulmonary. relevant finding as above Active Medications Hydrocodone Bitart/Acetaminophen (Hydrocodone/Apap 5-325mg 1 Each Tab) 1 each PO Q4HR PRN PRN Reason: Pain Last Admin: 12/21/20 11:55 Dose: 1 each Documented by: Aspirin (Aspirin 81 Mg) 81 mg PO BID [facility] Last Admin: 12/21/20 07:33 Dose: 81 mg Documented by: Atorvastatin Calcium (Atorvastatin 20 Mg Tab) 20 mg PO HS [facility] Last Admin: 12/20/20 20:31 Dose: 20 mg Documented by: Carvedilol (Carvedilol 12.5 Mg Tab) 12.5 mg PO BID [facility] Last Admin: 12/21/20 07:33 Dose: 12.5 mg Documented by: Cholecalciferol (Cholecalciferol 25 Mcg (1000 Iu) Tablet) 50 mcg PO DAILY [facility] Last Admin: 12/21/20 07:34 Dose: 50 mcg Documented by: Cyanocobalamin (Cyanocobalamin 500 Mcg Tab) 1,000 mcg PO DAILY [facility] Last Admin: 12/21/20 07:33 Dose: 1,000 mcg Documented by: Cyclobenzaprine HCl (Cyclobenzaprine 5 Mg Tab) 5 mg PO HS PRN PRN Reason: Muscle Spasm Last Admin: 12/20/20 20:56 Dose: 5 mg Documented by: Enoxaparin Sodium (Enoxaparin 40 Mg/0.4 Ml Syringe) 40 mg SQ DAILY [facility] Last Admin: 12/21/20 07:34 Dose: 40 mg Documented by: Ferrous Sulfate (Ferrous Sulfate 325 Mg Tab) 325 mg PO BID-W/MEALS [facility] Last Admin: 12/21/20 07:34 Dose: 325 mg Documented by: Hydromorphone HCl (Hydromorphone 0.5 Mg/0.5 Ml Syringe) 0.5 mg IVP Q3HR PRN PRN Reason: Moderate Pain Last Admin: 12/20/20 17:54 Dose: 0.5 mg Documented by: Sodium Chloride (Saline 0.9%) 1,000 mls @ 100 mls/hr IV .Q10H [facility] Last Admin: 12/21/20 07:36 Dose: 100 mls/hr Documented by: Cefazolin Sodium 2 gm/ Sodium (Chloride) 50 mls @ 100 mls/hr IVPB Q8HR [facility] Last Admin: 12/21/20 07:36 Dose: 100 mls/hr Documented by: Insulin Aspart (Insulin Aspart (Novolog) 100 Unit/Ml Vial) 0 unit SQ ACHS [facility]; Protocol Last Admin: 12/21/20 11:55 Dose: 2 unit Documented by: Lactulose (Lactulose 20 Gm/30 Ml Cup) 20 gm PO DAILY PRN PRN Reason: Constipation Levothyroxine Sodium (Levothyroxine 112 Mcg Tab) 112 mcg PO DAILY@0630 [facility] Last Admin: 12/21/20 05:21 Dose: 112 mcg Documented by: Lisinopril (Lisinopril 10 Mg Tab) 10 mg PO DAILY [facility] Last Admin: 12/21/20 07:34 Dose: 10 mg Documented by: Multivitamins (Multivitamins, Thera 1 Each Tab) 1 each PO DAILY [facility] Last Admin: 12/21/20 07:33 Dose: 1 each Documented by: Naloxone HCl (Naloxone 0.4 Mg/Ml 1 Ml Vial) 0.2 mg IV Q2M PRN PRN Reason: Opioid Reversal Ondansetron HCl (Ondansetron 4 Mg/2 Ml Vial) 4 mg IVP Q6HR PRN PRN Reason: Nausea And Vomiting Last Admin: 12/21/20 09:29 Dose: 4 mg Documented by: Pioglitazone HCl (Pioglitazone 15 Mg Tab) 15 mg PO DAILY [facility] Last Admin: 12/21/20 07:34 Dose: 15 mg Documented by: Past medical history to include: COPD, hypertension, hyperlipidemia, hypothyroidism thyroidism, diabetes mellitus type 2 Social history: Does smoke in the past. Alcohol rarely. Lives with her . Family history: Reviewed, noncontributory to presentation Physical examination: VITAL SIGNS: 98.5, 89, 16, 145-68, and 93% on 2 L GENERAL: Sitting up in bed, comfortable EYES: Pupils equal, conjunctiva normal. NECK: JVD unable to assess; masses not palpable. HEART: First and second heart sounds are normal; no edema. LUNGS: Respiratory rate normal; clear to auscultation. ABDOMEN: Soft, nontender, liver spleen not palpable, no masses palpable. PSYCH: Patient is tired but able to answer questions. 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 Moderate-sized hiatal hernia. Compression fracture L1. December 20: White count 13.5 hemoglobin 8.3 December 19: Potassium 4.7 Admission labs White count 9.2 hemoglobin 12.1 platelets 237 potassium 5.4 BUN 30 creatinine 1.10 glucose 137 Coronavirus [PCF]: Not detected Chest x-ray film personally reviewed by me-possible chronic changes X-ray hip on the right: Acute IT fractured right femur coxa vera EKG tracing personally reviewed by me-normal sinus rhythm Assessment and plan: -Acute right IT fracture of the femur secondary to fall, IM nailing on December 19: PTOT -Acute pulmonary edema -Coronary artery disease Coreg 12.5 by mouth twice a day. Aspirin -Hyperlipidemia Lipitor 20 mg daily at bedtime -Chronic compression fracture L1 -Hiatal hernia with GERD PPI -Essential Hypertension Lisinopril 10 mg daily, Coreg 12.5 by mouth twice a day -Hypothyroidism Synthroid 112 g a day -Acute pulmonary edema from IV fluids DC IV fluids. Lasix 40 mg IV 1 -Diabetes mellitus type 2 , oral hypoglycemic Actos. Follow Accu-Cheks. -Vitamin B12 deficiency B12 thousand micrograms daily -Acute postprocedure blood loss anemia, expected from surgery Ferrous sulfate 325 mg twice a day. Hemoglobin 6.6. Transfuse blood 1 unit PRBC ordered. Incentive spirometry ordered. DC IV fluids. 1 dose of IV Lasix 1. Follow labs.. Thank you Dr. Alcala. Will follow
[2020-12-21 16:32] LABS: Glucose,Whole Blood 183 mg/dL (75-99)
[2020-12-21] MEDS: ATORVASTATIN 20 MG TAB PO SCH (20:39)
[2020-12-21] MEDS: CYCLOBENZAPRINE 5 MG TAB PO PRN (20:43)
[2020-12-21 20:49] LABS: Glucose,Whole Blood 147 mg/dL (75-99)
[2020-12-22] MEDS: HYDROcodone/APAP 5-325MG 1 EACH TAB PO PRN ×3 (03:18→20:12)
[2020-12-22] MEDS: LEVOTHYROXINE 112 MCG TAB PO SCH (05:34)
[2020-12-22 05:58] LABS: African American GFR (CKD) 76 (>60 ml/min/1.73 sqM); Anion Gap 5 mmol/L; Blood Urea Nitrogen 23 mg/dL (7-17); Carbon Dioxide 26 mmol/L (22-30); Chloride 101 mmol/L (98-107); Glucose 144 mg/dL (74-99); Non-African American GFR(CKD) 66 (>60 ml/min/1.73 sqM); Potassium 3.4 mmol/L (3.5-5.1); Sodium 132 mmol/L (137-145)
[2020-12-22 07:04] LABS: Glucose,Whole Blood 143 mg/dL (75-99)
[2020-12-22] MEDS: INSULIN ASPART (NovoLOG) 100 UNIT/ML VIAL SQ SCH ×4 (07:44→21:30)
[2020-12-22] MEDS: carvediloL 12.5 MG TAB PO SCH ×2 (09:43→20:13)
[2020-12-22] MEDS: MULTIVITAMINS, THERA 1 EACH TAB PO SCH (09:43)
[2020-12-22] MEDS: CHOLECALCIFEROL 25 MCG (1000 IU) TABLET PO SCH (09:43)
[2020-12-22] MEDS: lisinopriL 10 MG TAB PO SCH (09:43)
[2020-12-22] MEDS: ENOXAPARIN 40 MG/0.4 ML SYRINGE SQ SCH (09:43)
[2020-12-22] MEDS: ASPIRIN 81 MG PO SCH ×2 (09:43→20:13)
[2020-12-22] MEDS: PIOGLITAZONE 15 MG TAB PO SCH (09:44)
[2020-12-22] MEDS: CYANOCOBALAMIN 500 MCG TAB PO SCH (09:44)
[2020-12-22] MEDS: FERROUS SULFATE 325 MG TAB PO SCH ×2 (09:44→17:06)
[2020-12-22 11:12] LABS: HCT 24.7 % (37.2-46.3); MCH 30.9 pg (27.0-32.0); MCHC 32.4 g/dL (32.0-37.0); MCV 95.4 fL (80.0-97.0); Mean Platelet Volume 12.5 fL (9.5-12.2); Platelet Count 168 X 10*3/uL (140-440); RBC 2.59 X 10*6/uL (4.10-5.20); RDW 15.1 % (11.5-14.5); WBC 13.12 X 10*3/uL (4.50-10.00)
--- NOTE | 2020-12-22 11:22 | P.PN ---
Subjective Progress Note Date: 12/22/20 Principal diagnosis: Status post intramedullary nail right intertrochanteric femur fracture Patient evaluated today at bedside, she is resting in her hospital chair. She is feeling better today she states. This she states that she has done quite a bit of walking with a walker today. Currently she denies any headaches, lightheadedness, chest pain or shortness of breath. Objective - Vital Signs Vital signs: Vital Signs Temp 97.9 F 12/22/20 08:29 Pulse 83 12/22/20 08:29 Resp 18 12/22/20 08:29 BP 156/72 12/22/20 08:29 Pulse Ox 94 L 12/22/20 08:29 Intake & Output 12/21/20 12/22/20 12/22/20 18:59 06:59 18:59 Intake Total 1390 150 Output Total 700 Balance 1390 -550 Intake: Intake, IV Titration 150 Amount ceFAZolin 2 gm In Sodium 150 Chloride 0.9% 50 ml @ 100 mls/hr IVPB Q8HR [facility] Rx# :[id number] Oral 1080 Blood Product 310 Rc As-1 Unit 310 [id number] Output: Urine 700 Other: Voiding Method Bedside Commode # Voids 7 - Exam Right lower extremity: Postop bandages in good position and condition, there is no obvious saturation. Mild soft tissue swelling present in the right lower extremity, no significant ecchymosis present. Compartments of the leg are soft Calf is soft, no tenderness with palpation Plantar flexion, dorsiflexion, EHL, FHL are intact. Hip and knee range of motion were not assessed Log roll maneuver reproduces minimal discomfort Sensory exam to light touch is intact of the extremity, dorsalis pedis pulses 2+ - Labs CBC & Chem 7: 12/22/20 05:09 12/22/20 05:09 Labs: Abnormal Lab Results - Last 24 Hours (Table) 12/21/20 12/21/20 12/21/20 Range/Units 07:49 11:26 12:26 WBC 14.63 H (4.50-10.00) X 10*3/uL RBC 2.13 L (4.10-5.20) X 10*6/uL Hgb 6.6 L* (12.0-15.0) g/dL Hct 21.1 L (37.2-46.3) % MCV 99.1 H (80.0-97.0) fL MCHC 31.3 L (32.0-37.0) g/dL RDW (11.5-14.5) % MPV 12.9 H (9.5-12.2) fL Immature Gran # 0.11 H (0.00-0.04) X 10*3/uL Neutrophils # 10.40 H (1.80-7.70) X 10*3/uL Monocytes # 2.35 H (0.20-1.00) X 10*3/uL Sodium (137-145) mmol/L Potassium (3.5-5.1) mmol/L BUN (7-17) mg/dL Glucose (74-99) mg/dL POC Glucose (mg/dL) 178 H (75-99) mg/dL Calcium (8.4-10.2) mg/dL Crossmatch See Detail 12/21/20 12/21/20 12/22/20 Range/Units 16:31 20:46 05:09 WBC (4.50-10.00) X 10*3/uL RBC (4.10-5.20) X 10*6/uL Hgb (12.0-15.0) g/dL Hct (37.2-46.3) % MCV (80.0-97.0) fL MCHC (32.0-37.0) g/dL RDW (11.5-14.5) % MPV (9.5-12.2) fL Immature Gran # (0.00-0.04) X 10*3/uL Neutrophils # (1.80-7.70) X 10*3/uL Monocytes # (0.20-1.00) X 10*3/uL Sodium 132 L (137-145) mmol/L Potassium 3.4 L (3.5-5.1) mmol/L BUN 23 H (7-17) mg/dL Glucose 144 H (74-99) mg/dL POC Glucose (mg/dL) 183 H 147 H (75-99) mg/dL Calcium 8.0 L (8.4-10.2) mg/dL Crossmatch 12/22/20 12/22/20 Range/Units 05:09 07:02 WBC 13.12 H (4.50-10.00) X 10*3/uL RBC 2.59 L (4.10-5.20) X 10*6/uL Hgb 8.0 L (12.0-15.0) g/dL Hct 24.7 L (37.2-46.3) % MCV (80.0-97.0) fL MCHC (32.0-37.0) g/dL RDW 15.1 H (11.5-14.5) % MPV 12.5 H (9.5-12.2) fL Immature Gran # (0.00-0.04) X 10*3/uL Neutrophils # (1.80-7.70) X 10*3/uL Monocytes # (0.20-1.00) X 10*3/uL Sodium (137-145) mmol/L Potassium (3.5-5.1) mmol/L BUN (7-17) mg/dL Glucose (74-99) mg/dL POC Glucose (mg/dL) 143 H (75-99) mg/dL Calcium (8.4-10.2) mg/dL Crossmatch Assessment and Plan Assessment: Postoperative day #3 status post intramedullary nail three-part right intertrochanteric femur fracture Acute blood loss anemia, expected surgical outcome Hyponatremia Other medical comorbidities Plan: Pain control, continue with current medication. GI prophylaxis, continue subcu medication during hospital stay Hemoglobin is 8, continue ferrous sulfate 325 mg twice a day Discussed with nursing to contact internal medicine regarding his abnormal sodium levels Weight-bear as tolerated with walker Encourage incentive spirometer Continue work with physical therapy Other medical specialty recommendations Discharge planning: hopeful discharge to rehab in the next day or two Time with Patient: Less than 30
[2020-12-22 11:28] LABS: Glucose,Whole Blood 157 mg/dL (75-99)
[2020-12-22 11:50] LABS: Basophils # (A) 0.01 X 10*3/uL (0.00-0.10); Basophils % (A) 0.1 %; Eosinophils # (A) 0.16 X 10*3/uL (0.04-0.35); Eosinophils % (A) 1.2 %; Lymphocytes # (A) 1.65 X 10*3/uL (0.90-5.00); Lymphocytes % (A) 12.6 %; Monocytes # (A) 1.98 X 10*3/uL (0.20-1.00); Monocytes % (A) 15.1 %; Neutrophils % (A) 70.1 %
[2020-12-22] MEDS ORDERED: POTASSIUM CHLORIDE ER 20 MEQ TAB.ER PO STA (13:02)
--- NOTE | 2020-12-22 15:26 | P.PN ---
Progress Note - Text Progress Note Date: 12/22/20 - Chief Complaint Fall on right hip Consultation: This is a pleasant 85-year-old patient, who follows Dr. Solis. Chronic stable medical conditions include coronary artery disease, diabetes, hyperlipidemia, hypertension, hypothyroid. Patient is out in the yard yesterday was bending over, pulling out the weed. She had a dog on a leash. Tox to decided to go on the right and she fell. She hasn't been able to put pressure on the right side. Extremities the ER did confirm a fracture. Patient denies any chest pain or shortness of breath. Normally able to walk at least half a block. No dizziness or lightheadedness. Currently tired. Pain is localized to the right hip. December 20: Status post IM nailing of the right ID femur fracture. Sitting up in bed. Eating her lunch. at bedside. Some pain present. No nausea vomiting. December 21: Sitting up in bed. Comfortable. Oral intake fair. at the bedside. Pain control. Hemoglobin 6.6. 1 PRBC ordered December 22: Patient had acute pulmonary edema yesterday. Fluid overload. IV Lasix was given. Patient did did use well. Breathing better. Oral intake better. Pulse ox improved. Review of systems: Was done for constitutional, cardiovascular, GI, pulmonary. relevant finding as above Active Medications Hydrocodone Bitart/Acetaminophen (Hydrocodone/Apap 5-325mg 1 Each Tab) 1 each PO Q4HR PRN PRN Reason: Pain Last Admin: 12/22/20 10:34 Dose: 1 each Documented by: Aspirin (Aspirin 81 Mg) 81 mg PO BID [facility] Last Admin: 12/22/20 09:43 Dose: 81 mg Documented by: Atorvastatin Calcium (Atorvastatin 20 Mg Tab) 20 mg PO HS [facility] Last Admin: 12/21/20 20:39 Dose: 20 mg Documented by: Carvedilol (Carvedilol 12.5 Mg Tab) 12.5 mg PO BID [facility] Last Admin: 12/22/20 09:43 Dose: 12.5 mg Documented by: Cholecalciferol (Cholecalciferol 25 Mcg (1000 Iu) Tablet) 50 mcg PO DAILY [facility] Last Admin: 12/22/20 09:43 Dose: 50 mcg Documented by: Cyanocobalamin (Cyanocobalamin 500 Mcg Tab) 1,000 mcg PO DAILY [facility] Last Admin: 12/22/20 09:44 Dose: 1,000 mcg Documented by: Cyclobenzaprine HCl (Cyclobenzaprine 5 Mg Tab) 5 mg PO HS PRN PRN Reason: Muscle Spasm Last Admin: 12/21/20 20:43 Dose: 5 mg Documented by: Enoxaparin Sodium (Enoxaparin 40 Mg/0.4 Ml Syringe) 40 mg SQ DAILY [facility] Last Admin: 12/22/20 09:43 Dose: 40 mg Documented by: Ferrous Sulfate (Ferrous Sulfate 325 Mg Tab) 325 mg PO BID-W/MEALS [facility] Last Admin: 12/22/20 09:44 Dose: 325 mg Documented by: Hydromorphone HCl (Hydromorphone 0.5 Mg/0.5 Ml Syringe) 0.5 mg IVP Q3HR PRN PRN Reason: Moderate Pain Last Admin: 12/20/20 17:54 Dose: 0.5 mg Documented by: Cefazolin Sodium 2 gm/ Sodium (Chloride) 50 mls @ 100 mls/hr IVPB Q8HR [facility] Last Admin: 12/22/20 09:42 Dose: 100 mls/hr Documented by: Insulin Aspart (Insulin Aspart (Novolog) 100 Unit/Ml Vial) 0 unit SQ ACHS [facility]; Protocol Last Admin: 12/22/20 11:38 Dose: 2 unit Documented by: Lactulose (Lactulose 20 Gm/30 Ml Cup) 20 gm PO DAILY PRN PRN Reason: Constipation Levothyroxine Sodium (Levothyroxine 112 Mcg Tab) 112 mcg PO DAILY@0630 [facility] Last Admin: 12/22/20 05:34 Dose: 112 mcg Documented by: Lisinopril (Lisinopril 10 Mg Tab) 10 mg PO DAILY [facility] Last Admin: 12/22/20 09:43 Dose: 10 mg Documented by: Multivitamins (Multivitamins, Thera 1 Each Tab) 1 each PO DAILY [facility] Last Admin: 12/22/20 09:43 Dose: 1 each Documented by: Naloxone HCl (Naloxone 0.4 Mg/Ml 1 Ml Vial) 0.2 mg IV Q2M PRN PRN Reason: Opioid Reversal Ondansetron HCl (Ondansetron 4 Mg/2 Ml Vial) 4 mg IVP Q6HR PRN PRN Reason: Nausea And Vomiting Last Admin: 12/21/20 09:29 Dose: 4 mg Documented by: Pioglitazone HCl (Pioglitazone 15 Mg Tab) 15 mg PO DAILY [facility] Last Admin: 12/22/20 09:44 Dose: 15 mg Documented by: Past medical history to include: COPD, hypertension, hyperlipidemia, hypothyroidism thyroidism, diabetes mellitus type 2 Social history: Does smoke in the past. Alcohol rarely. Lives with her . Family history: Reviewed, noncontributory to presentation Physical examination: VITAL SIGNS: 98.4, 78, 18, 132/71, 92% on 2 L GENERAL: Sitting up comfortable EYES: Pupils equal, conjunctiva normal. NECK: JVD unable to assess; masses not palpable. HEART: First and second heart sounds are normal; no edema. LUNGS: Respiratory rate normal; decreased breath sounds ABDOMEN: Soft, nontender, liver spleen not palpable, no masses palpable. PSYCH: Patient is tired but able to answer questions. 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 Moderate-sized hiatal hernia. Compression fracture L1. December 20: White count 13.5 hemoglobin 8.3 December 19: Potassium 4.7 Admission labs White count 9.2 hemoglobin 12.1 platelets 237 potassium 5.4 BUN 30 creatinine 1.10 glucose 137 Coronavirus [PCF]: Not detected Chest x-ray film personally reviewed by me-possible chronic changes X-ray hip on the right: Acute IT fractured right femur coxa vera EKG tracing personally reviewed by me-normal sinus rhythm Assessment and plan: -Acute right IT fracture of the femur secondary to fall, IM nailing on December 19: PTOT -Acute pulmonary edema Given 1 dose of IV Lasix. Repeat 20 mg of IV Lasix today. -Coronary artery disease Coreg 12.5 by mouth twice a day. Aspirin -Hyperlipidemia Lipitor 20 mg daily at bedtime -Chronic compression fracture L1 -Hiatal hernia with GERD PPI -Essential Hypertension Lisinopril 10 mg daily, Coreg 12.5 by mouth twice a day -Hypothyroidism Synthroid 112 g a day -Acute pulmonary edema from IV fluids DC IV fluids. Lasix 40 mg IV 1 -Diabetes mellitus type 2 , oral hypoglycemic Actos. Follow Accu-Cheks. -Vitamin B12 deficiency B12 thousand micrograms daily -Acute postprocedure blood loss anemia, expected from surgery Ferrous sulfate 325 mg twice a day. Hemoglobin 6.6. Transfuse blood Repeat 20 mg IV Lasix 1. Repeat labs tomorrow. Otherwise doing better. Discussed with the patient.. Thank you Dr. Alcala.
[2020-12-22] MEDS ORDERED: FUROSEMIDE 10 MG/ML 2 ML VIAL IV ONE (15:45)
[2020-12-22 16:41] LABS: Glucose,Whole Blood 165 mg/dL (75-99)
[2020-12-22] MEDS: CYCLOBENZAPRINE 5 MG TAB PO PRN (20:13)
[2020-12-22] MEDS: ATORVASTATIN 20 MG TAB PO SCH (20:13)
[2020-12-22 20:52] LABS: Glucose,Whole Blood 160 mg/dL (75-99)
[2020-12-23] MEDS: HYDROcodone/APAP 5-325MG 1 EACH TAB PO PRN (03:32)
[2020-12-23] MEDS: LEVOTHYROXINE 112 MCG TAB PO SCH (06:25)
[2020-12-23 07:08] LABS: African American GFR (CKD) 84 (>60 ml/min/1.73 sqM); Anion Gap 7 mmol/L; Blood Urea Nitrogen 24 mg/dL (7-17); Calcium 8.4 mg/dL (8.4-10.2); Carbon Dioxide 28 mmol/L (22-30); Chloride 99 mmol/L (98-107); Glucose 146 mg/dL (74-99); Non-African American GFR(CKD) 73 (>60 ml/min/1.73 sqM); Potassium 4.2 mmol/L (3.5-5.1); Sodium 134 mmol/L (137-145)
[2020-12-23] MEDS: CHOLECALCIFEROL 25 MCG (1000 IU) TABLET PO SCH (08:10)
[2020-12-23] MEDS: PIOGLITAZONE 15 MG TAB PO SCH (08:10)
[2020-12-23] MEDS: INSULIN ASPART (NovoLOG) 100 UNIT/ML VIAL SQ SCH ×2 (08:10→12:52)
[2020-12-23] MEDS: ASPIRIN 81 MG PO SCH (08:10)
[2020-12-23] MEDS: FERROUS SULFATE 325 MG TAB PO SCH (08:10)
[2020-12-23] MEDS: lisinopriL 10 MG TAB PO SCH (08:10)
[2020-12-23] MEDS: carvediloL 12.5 MG TAB PO SCH (08:10)
[2020-12-23] MEDS: CYANOCOBALAMIN 500 MCG TAB PO SCH (08:10)
[2020-12-23] MEDS: ENOXAPARIN 40 MG/0.4 ML SYRINGE SQ SCH (08:10)
[2020-12-23] MEDS: MULTIVITAMINS, THERA 1 EACH TAB PO SCH (08:10)
[2020-12-23 08:12] VITALS: RESP 17
[2020-12-23] MEDS ORDERED: TAMSULOSIN 0.4 MG CAP.ER.24H PO STA (11:06)
[2020-12-23 11:40] LABS: Glucose,Whole Blood 164 mg/dL (75-99)
--- NOTE | 2020-12-23 11:42 | P.PN ---
Subjective Progress Note Date: 12/23/20 Principal diagnosis: Status post intramedullary nail right intertrochanteric femur fracture Patient evaluated today at bedside, she is resting in her hospital chair. She continues to notice improvement with regards to the right hip.. I was contacted by the nursing staff early this morning with regards to urinary retention, urinary straight cath did reveal 400 mL. Internal medicine is aware of the current situation. Currently she denies any headaches, lightheadedness, chest pain or shortness of breath. Objective - Vital Signs Vital signs: Vital Signs Temp 98.0 F 12/23/20 07:58 Pulse 77 12/23/20 07:58 Resp 17 12/23/20 07:58 BP 143/56 12/23/20 07:58 Pulse Ox 98 12/23/20 07:58 Intake & Output 12/22/20 12/23/20 12/23/20 18:59 06:59 18:59 Intake Total 1080 290 Output Total 1000 Balance 1080 -710 Intake: Intake, IV Titration 50 Amount ceFAZolin 2 gm In Sodium 50 Chloride 0.9% 50 ml @ 100 mls/hr IVPB Q8HR [facility] Rx# :[id number] Oral 1080 240 Output: Urine 1000 Other: Voiding Method Bedside Commode # Voids 3 3 # Bowel Movements 0 0 - Exam Right lower extremity: Bandages are in good position and condition, no active drainage Mild soft tissue swelling present in the right lower extremity, no significant ecchymosis present. Compartments of the leg are soft Calf is soft, no tenderness with palpation Plantar flexion, dorsiflexion, EHL, FHL are intact. Hip and knee range of motion were not assessed Log roll maneuver reproduces minimal discomfort Sensory exam to light touch is intact of the extremity, dorsalis pedis pulses 2+ - Labs CBC & Chem 7: 12/22/20 05:09 12/23/20 06:27 Labs: Abnormal Lab Results - Last 24 Hours (Table) 12/22/20 12/22/20 12/22/20 Range/Units 05:09 16:39 20:51 Immature Gran # 0.12 H (0.00-0.04) X 10*3/uL Neutrophils # 9.20 H (1.80-7.70) X 10*3/uL Monocytes # 1.98 H (0.20-1.00) X 10*3/uL Sodium (137-145) mmol/L BUN (7-17) mg/dL Glucose (74-99) mg/dL POC Glucose (mg/dL) 165 H 160 H (75-99) mg/dL 12/23/20 Range/Units 06:27 Immature Gran # (0.00-0.04) X 10*3/uL Neutrophils # (1.80-7.70) X 10*3/uL Monocytes # (0.20-1.00) X 10*3/uL Sodium 134 L (137-145) mmol/L BUN 24 H (7-17) mg/dL Glucose 146 H (74-99) mg/dL POC Glucose (mg/dL) (75-99) mg/dL Assessment and Plan Assessment: Postoperative day #4 status post intramedullary nail three-part right intertrochanteric femur fracture Acute blood loss anemia, expected surgical outcome Hyponatremia Urinary retention Other medical comorbidities Plan: Pain control, plan for discharge on oral medication DVT prophylaxis, aspirin 325 mg daily for 1 month Continue ferrous sulfate 325 mg twice a day for anemia, CBC will be prescribed for drawn next few days at rehab Weight-bear as tolerated with walker Encourage incentive spirometer Continue work with physical therapy Other medical specialty recommendations Discharge planning: Discussed with internal medicine today patient's urinary retention, they are aware and treating. Patient is stable via the orthopedic standpoint for discharge, plan for discharge to rehab today Time with Patient: Less than 30
--- NOTE | 2020-12-23 11:55 | P.DS ---
Providers Date of admission: 12/18/20 19:37 Expected date of discharge: 12/23/20 Attending physician: Baldemar Alcala DO Consults: 12/18/20 19:37 Consult Physician Routine Consulting Provider: Gary Bell Reason/Comments: medicine consult Do you want consulting provider notified?: Yes Primary care physician: [facility] Course: Date of admission: 12/18/2020 Date of discharge: 12/23/2020 Admission diagnosis: Displaced right intertrochanteric femur fracture Discharge diagnosis: Status post intramedullary nail right intertrochanteric femur fracture Attending physician: Dr. Alcala Surgical procedures: Intramedullary nail right intertrochanteric femur fracture Brief history: Patient is a 85-year-old female who was evaluated at [facility] on 12/18/2020 after sustaining a fall and injuring her right lower extremity. It was determined the patient had a displaced right intertrochanteric femur fracture. She was admitted under our orthopedic care with plan for likely surgical intervention. Internal medicine was consulted for management and clearance, patient underwent surgery on 12/19/2020. Hospital course: Details of patient's surgery can be found in operative report. Patient tolerated the procedure well and was subsequently transported to orthopedic floor. Patient's orthopeidc and medical care was provided daily. Patient had daily laboratory tests performed for evaluation of overall blood counts. Patient had daily physical therapy to include strengthening range of motion as well as education with walker ambulation. Patient was treated with Lovenox for their postoperative DVT prophylaxis during their inpatient stay. Patient was noted to have a relatively uneventful postoperative course. Patient reported satisfactory pain control with oral pain medications by postoperative day 0. Patient showed satisfactory progress with physical therapy. Patient moved steadily through the program and had no difficulty meeting the goals by postoperative day 4. Given patient's otherwise satisfactory course and having met physical therapy goals, plan is to discharge patient rehab on postoperative day 4. Discharge condition/disposition: Patient will be discharged rehab in stable condition. Discharge medications: Instructions are given on resumption of patient's normal daily medications per primary care recommendation, in addition patient will be prescribed Johnson 5 mg/325 mg, Colace 100 mg, aspirin 325 mg, ferrous sulfate 325 mg, Flexeril 5 mg, NovoLog, Flomax 0.4 mg. Discharge instructions: 1. Wound care and infection precautions, keep incision dry and covered while showering, no lotions, creams, moisturizers. No soaking, tubs, pools, hottubs. Do not scrub over the incision. 2. Weight-bear as tolerated with walker / cane until follow-up. 3. Ice and elevate when necessary. Do not exceed 20 minutes per hour with ice pack. 4. Utilize compression sleeve until seen at first follow up appointment. 5. Visiting nursing care. 6. Home physical therapy. 7. Pain meds and anticoagulants per prescription. 8. Pain medication has potential to cause constipation. Increase oral fluid and fiber intake. Contact primary care provider if you have not had a bowel movement within 48 hours after discharge 9. No anti-inflammatory medication until discussed at first post operative visit, this including Motrin, Aleve, Mobic, Diclofenac. 10. Follow up in office at [address] Alcala 11. Follow up with your primary care doctor 7-10 days after discharge. 12. Contact [facility] with any questions, . Procedures: Intramedullary nail right intertrochanteric femur fracture Patient Condition at Discharge: Fair Plan - Discharge Summary Discharge Rx Participant: No New Discharge Prescriptions: New Cyclobenzaprine [Flexeril] 5 mg PO HS PRN tab PRN Reason: Muscle Spasm Tamsulosin [Flomax] 0.4 mg PO DAILY #1 cap INSULIN ASPART (NovoLOG) [NovoLOG (formulary)] 0 unit SQ ACHS ml Aspirin 325 mg PO DAILY #30 tab Docusate [Colace] 100 mg PO DAILY #30 cap HYDROcodone/APAP 5-325MG [Johnson 5-325] 1 tab PO Q6HR PRN #28 tab PRN Reason: Pain Ferrous Sulfate [Iron (65 MG Elemental)] 325 mg PO BID-W/MEALS tab Continue Levothyroxine Sodium [Synthroid] 112 mcg PO DAILY Pioglitazone [Actos] 15 mg PO DAILY Cyanocobalamin (Vitamin B-12) [Vitamin B-12] 1,000 mcg PO DAILY Carvedilol [Coreg] 12.5 mg PO BID Atorvastatin [Lipitor] 20 mg PO HS Multivitamins, Thera [Multivitamin (formulary)] 1 tab PO DAILY Cholecalciferol [Vitamin D3 (25 Mcg = 1000 Iu)] 50 mcg PO DAILY Discontinued Aspirin 81 mg PO BID #30 chewable No Action lisinopriL [Zestril] 10 mg PO DAILY Discharge Medication List Levothyroxine Sodium [Synthroid] 112 mcg PO DAILY 01/08/14 [History] Carvedilol [Coreg] 12.5 mg PO BID 09/24/17 [History] Cyanocobalamin (Vitamin B-12) [Vitamin B-12] 1,000 mcg PO DAILY 09/24/17 [History] Pioglitazone [Actos] 15 mg PO DAILY 09/24/17 [History] lisinopriL [Zestril] 10 mg PO DAILY 09/24/17 [History] Atorvastatin [Lipitor] 20 mg PO HS 09/20/18 [History] Multivitamins, Thera [Multivitamin (formulary)] 1 tab PO DAILY 01/21/19 [History] Cholecalciferol [Vitamin D3 (25 Mcg = 1000 Iu)] 50 mcg PO DAILY 12/18/20 [History] Aspirin 325 mg PO DAILY #30 tab 12/23/20 [Rx] Cyclobenzaprine [Flexeril] 5 mg PO HS PRN tab 12/23/20 [Rx] Docusate [Colace] 100 mg PO DAILY #30 cap 12/23/20 [Rx] Ferrous Sulfate [Iron (65 MG Elemental)] 325 mg PO BID-W/MEALS tab 12/23/20 [Rx] HYDROcodone/APAP 5-325MG [Johnson 5-325] 1 tab PO Q6HR PRN #28 tab 12/23/20 [Rx] INSULIN ASPART (NovoLOG) [NovoLOG (formulary)] 0 unit SQ ACHS ml 12/23/20 [Rx] Tamsulosin [Flomax] 0.4 mg PO DAILY #1 cap 12/23/20 [Rx] Follow up Appointment(s)/Referral(s): Mesfin Solis DO [Primary Care Provider] - 1-2 days Baldemar Alcala DO [Doctor of Osteopathic Medicine] - 2 Weeks Ambulatory/Diagnostic Orders: Complete Blood Count w/diff [LAB.AMB] Location: None Selected Activity/Diet/Wound Care/Special Instructions: Orthopedic Discharge Instructions: 1. Wound care and infection precautions, keep incision dry and covered while showering, no lotions, creams, moisturizers. No soaking, pools, hot tubs. Do not scrub over incision. 2. Weight-bear as tolerated with walker / cane until follow-up. 3. Ice and elevate when necessary. Do not exceed 20 minutes per hour with ice pack. 4. Utilize compression sleeve until seen at first follow up appointment. 5. Pain meds and anticoagulants per prescription. 6. Pain medication has potential to cause constipation. Increase oral fluid and fiber intake. Contact primary care provider if you have not had a bowel movement within 48 hours after discharge. 7. No anti-inflammatory medication until discussed at first post operative visit, this including Motrin, Aleve, Mobic, Diclofenac. 8. Follow up in office at [address] Alcala 9. Follow up with your primary care doctor 7-10 days after discharge. 10. Contact [facility] with any questions, . Discharge Disposition: TRANSFER TO SNF/ECF
[2020-12-23 14:38] VITALS: BP 154/81; PULSE 76; TEMP 98.2
--- NOTE | 2020-12-23 15:47 | P.PN ---
Progress Note - Text Progress Note Date: 12/23/20 - Chief Complaint Fall on right hip Consultation: This is a pleasant 85-year-old patient, who follows Dr. Solis. Chronic stable medical conditions include coronary artery disease, diabetes, hyperlipidemia, hypertension, hypothyroid. Patient is out in the yard yesterday was bending over, pulling out the weed. She had a dog on a leash. Tox to decided to go on the right and she fell. She hasn't been able to put pressure on the right side. Extremities the ER did confirm a fracture. Patient denies any chest pain or shortness of breath. Normally able to walk at least half a block. No dizziness or lightheadedness. Currently tired. Pain is localized to the right hip. December 20: Status post IM nailing of the right ID femur fracture. Sitting up in bed. Eating her lunch. at bedside. Some pain present. No nausea vomiting. December 21: Sitting up in bed. Comfortable. Oral intake fair. at the bedside. Pain control. Hemoglobin 6.6. 1 PRBC ordered December 22: Patient had acute pulmonary edema yesterday. Fluid overload. IV Lasix was given. Patient did did use well. Breathing better. Oral intake better. Pulse ox improved. December 23: Patient received additional IV Lasix yesterday. Good urine output. Breathing much better. Oral intake good. Had some urinary retention this morning. Flomax 0.4 mg started. Communicated Mark, [employer]PER[employer]/orthopedics. Medically stable for DC. Care was discussed with the patient at the bedside. Patient to continue to use incentive spirometry. Review of systems: Was done for constitutional, cardiovascular, GI, pulmonary. relevant finding as above Active Medications Hydrocodone Bitart/Acetaminophen (Hydrocodone/Apap 5-325mg 1 Each Tab) 1 each PO Q4HR PRN PRN Reason: Pain Last Admin: 12/23/20 03:32 Dose: 1 each Documented by: Aspirin (Aspirin 81 Mg) 81 mg PO BID [facility] Last Admin: 12/23/20 08:10 Dose: 81 mg Documented by: Atorvastatin Calcium (Atorvastatin 20 Mg Tab) 20 mg PO HS [facility] Last Admin: 12/22/20 20:13 Dose: 20 mg Documented by: Carvedilol (Carvedilol 12.5 Mg Tab) 12.5 mg PO BID [facility] Last Admin: 12/23/20 08:10 Dose: 12.5 mg Documented by: Cholecalciferol (Cholecalciferol 25 Mcg (1000 Iu) Tablet) 50 mcg PO DAILY [facility] Last Admin: 12/23/20 08:10 Dose: 50 mcg Documented by: Cyanocobalamin (Cyanocobalamin 500 Mcg Tab) 1,000 mcg PO DAILY [facility] Last Admin: 12/23/20 08:10 Dose: 1,000 mcg Documented by: Cyclobenzaprine HCl (Cyclobenzaprine 5 Mg Tab) 5 mg PO HS PRN PRN Reason: Muscle Spasm Last Admin: 12/22/20 20:13 Dose: 5 mg Documented by: Enoxaparin Sodium (Enoxaparin 40 Mg/0.4 Ml Syringe) 40 mg SQ DAILY [facility] Last Admin: 12/23/20 08:10 Dose: 40 mg Documented by: Ferrous Sulfate (Ferrous Sulfate 325 Mg Tab) 325 mg PO BID-W/MEALS [facility] Last Admin: 12/23/20 08:10 Dose: 325 mg Documented by: Hydromorphone HCl (Hydromorphone 0.5 Mg/0.5 Ml Syringe) 0.5 mg IVP Q3HR PRN PRN Reason: Moderate Pain Last Admin: 12/20/20 17:54 Dose: 0.5 mg Documented by: Cefazolin Sodium 2 gm/ Sodium (Chloride) 50 mls @ 100 mls/hr IVPB Q8HR [facility] Last Admin: 12/23/20 08:09 Dose: 100 mls/hr Documented by: Insulin Aspart (Insulin Aspart (Novolog) 100 Unit/Ml Vial) 0 unit SQ ACHS [facility]; Protocol Last Admin: 12/23/20 12:52 Dose: Not Given Documented by: Lactulose (Lactulose 20 Gm/30 Ml Cup) 20 gm PO DAILY PRN PRN Reason: Constipation Levothyroxine Sodium (Levothyroxine 112 Mcg Tab) 112 mcg PO DAILY@0630 [facility] Last Admin: 12/23/20 06:25 Dose: 112 mcg Documented by: Lisinopril (Lisinopril 10 Mg Tab) 10 mg PO DAILY [facility] Last Admin: 12/23/20 08:10 Dose: 10 mg Documented by: Multivitamins (Multivitamins, Thera 1 Each Tab) 1 each PO DAILY [facility] Last Admin: 12/23/20 08:10 Dose: 1 each Documented by: Naloxone HCl (Naloxone 0.4 Mg/Ml 1 Ml Vial) 0.2 mg IV Q2M PRN PRN Reason: Opioid Reversal Ondansetron HCl (Ondansetron 4 Mg/2 Ml Vial) 4 mg IVP Q6HR PRN PRN Reason: Nausea And Vomiting Last Admin: 12/21/20 09:29 Dose: 4 mg Documented by: Pioglitazone HCl (Pioglitazone 15 Mg Tab) 15 mg PO DAILY [facility] Last Admin: 12/23/20 08:10 Dose: 15 mg Documented by: Past medical history to include: COPD, hypertension, hyperlipidemia, hypothyroidism thyroidism, diabetes mellitus type 2 Social history: Does smoke in the past. Alcohol rarely. Lives with her . Family history: Reviewed, noncontributory to presentation Physical examination: VITAL SIGNS: 98.2, 76, 17, 154/81, 92% room air GENERAL: Sitting up comfortable EYES: Pupils equal, conjunctiva normal. NECK: JVD unable to assess; masses not palpable. HEART: First and second heart sounds are normal; no edema. LUNGS: Respiratory rate normal; decreased breath sounds ABDOMEN: Soft, nontender, liver spleen not palpable, no masses palpable. PSYCH: Patient is tired but able to answer questions. 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 Moderate-sized hiatal hernia. Compression fracture L1. December 20: White count 13.5 hemoglobin 8.3 December 19: Potassium 4.7 Admission labs White count 9.2 hemoglobin 12.1 platelets 237 potassium 5.4 BUN 30 creatinine 1.10 glucose 137 Coronavirus [PCF]: Not detected Chest x-ray film personally reviewed by me-possible chronic changes X-ray hip on the right: Acute IT fractured right femur coxa vera EKG tracing personally reviewed by me-normal sinus rhythm Assessment and plan: -Acute right IT fracture of the femur secondary to fall, IM nailing on December 19: PTOT -Coronary artery disease Coreg 12.5 by mouth twice a day. Aspirin -Hyperlipidemia Lipitor 20 mg daily at bedtime -Chronic compression fracture L1 Pain controlled -Hiatal hernia with GERD PPI -Essential Hypertension Lisinopril 10 mg daily, Coreg 12.5 by mouth twice a day -Hypothyroidism Synthroid 112 g a day -Acute pulmonary edema from IV fluids: Improved Responded well to IV Lasix -Diabetes mellitus type 2 , oral hypoglycemic Actos. Follow Accu-Cheks. -Vitamin B12 deficiency B12 thousand micrograms daily -Acute postprocedure blood loss anemia, expected from surgery Ferrous sulfate 325 mg twice a day. Hemoglobin 6.6. Transfuse blood -Acute urinary retention, postoperative At Flomax 0.4 mg daily Flomax 0.4 mg daily added. Other medications to continue. Discussed with the patient and . Stable. Follow-up with PCP upon discharge Thank you Dr. Alcala.
--- NOTE | 2020-12-23 16:56 | OP ---
OPERATIVE REPORT DATE OF SERVICE: 12/19/2020. PREOPERATIVE DIAGNOSIS: Right three-part intertrochanteric fracture, displaced. POSTOPERATIVE DIAGNOSIS: Right three-part intertrochanteric fracture, displaced. PROCEDURE: Closed reduction, right hip with intramedullary nail fixation. ANESTHESIA: Spinal with sedation. EBL: One hundred. FLUIDS: 1000. URINE OUTPUT: 250. DISPOSITION: Stable to PACU. IMPLANTS: [employer] Intertan nail long, 330 mm by 11 mm x 125 degrees. INDICATION FOR PROCEDURE: This 85-year-old female presented to the hospital after sustaining a fall from standing onto her hip. The patient was taken to the hospital after this fall when she was bending over to berry picker something and her dog pulled on her. She complained of immediate pain in her hip and was unable to ambulate. She was brought via the EMS to the hospital. She was admitted to the hospital and worked up via Medicine and Trauma and Orthopedic service. We discussed different options for her, but operative treatment was the best option as she is fairly independent and usually able to do most things on her own. She does live with her and walks sometimes with a cane. The patient is seen preoperatively. All preoperative protocols followed. The patient was deemed fit by the Department of Anesthesia for surgery. The site was marked. Consent was confirmed. Patient had been n.p.o. We discussed again risks and benefits including risk of bleeding, infection, damage to surrounding tissue, risk of reoperation, risk of anesthesia up to including . She was willing to assume these risks and all the risks of surgery as outlined in the risk review. The patient was given a weight based dose of antibiotics as well as tranexamic acid and she was ready and willing to proceed with the procedure. OPERATIVE COURSE: Patient was transferred to the operative suite and she was placed supine on the operating table. Spinal anesthesia was then provided by the Department of Anesthesia. Once adequate anesthesia had been obtained, the patient was placed in the Morgan boots on the Morgan table with the center post in place. She was then secured to the table with a safety strap as well as tape. Her operative leg was placed in a Morgan boot. Her nonoperative leg was placed in a well leg howard up and out in the externally rotated position. Once in good position, and all bony prominences padded accordingly, closed reduction was performed using fluoroscopic guidance of the right hip. Once reduction had been successful, the patient's right leg was then prepped and draped in normal sterile fashion. Time-out was performed. All parties were in agreement with the procedure to be performed. I then made an incision 2 cm proximal greater trochanter and with blunt dissection made it to the tip of the greater trochanter. An awl was then used to access the femoral canal. We chose starting point based on AP and lateral fluoroscopy. Once good starting point had been achieved, the awl was advanced into the canal. We then placed a ball-tipped guidewire through this into the femoral shaft and bone. It was confirmed to be in bone and placed it at the superior pole patella. The awl was then removed. We measured for the nail at this point. Once this was measured, we then placed a tissue guide over the wire and an opening reamer was used. Once this was confirmed, we then under fluoroscopic guidance did sequential reaming 1st with a 9 mm followed by 11 mm followed by 12.5 mm followed by 13 mm reamer down the femoral shaft. Good chatter was felt at 13 mm and so an 11.5 mm nail was selected at 125 degrees. This nail was then placed over the ball-tipped guidewire and impacted into place. Once in good position, the outrigger jig for the lag screw was then placed. A skin incision was made over the lateral aspect of the femur, taken through the tensor fascia domenica and blunt dissection taken down to the femoral shaft. The jig was then placed against bone in this area. We then placed the pin for the lag screw making sure on AP and lateral to be center center within the neck and femoral head. Once this was confirmed and in good position, we drilled opening for the compression screw and then drilled the compression screw to 90 mm planning on a 95 lag screw. We then drilled for the lag screw, a 95 under fluoroscopy guidance. We then placed the lag screw. Once in good position, we then placed the compression screw. We did do about 2-3 mm of compression on this compression screw under fluoroscopic guidance, which showed good compression of the fracture. We then locked the nail proximally and once this was accomplished, we then turned our attention to the distal aspect of the nail. Perfect circles were obtained distally. Skin incision was made. Blunt dissection with stat, taken down to the femur. We then drilled through this area and measured for a static locking screw distally. This was then placed and confirmed to be in good position. AP and lateral fluoroscopy. Once in good position, the jig was removed. We took final images showing good fracture reduction as well as nail placement. The wounds were then copiously irrigated with normal sterile saline. We then closed deep fascia proximally as well as ITB band with #1 Vicryl followed by 0-Vicryl in the deep subcu tissue followed by 2-0 Vicryl in the superficial subcu tissue followed by skin jg in the skin. Wound edges approximated very well. This was then sterilely dressed with Adaptic, 4x4s, and tape. The patient was then carefully transferred off the Morgan table back to her hospital bed. She was awakened by Department of Anesthesia having tolerated the procedure very well with no complications. She was transferred to postoperative care unit in stable condition. MMODL / IJN: [id number] /
== END 2020-12-23 15:35 | DRG 480 ==
LOC: EC 17:48 → OBSVTOIN 19:37 → 4SSUR 19:37
PROVIDERS: ADMIT Orthopaedic Surgery; ATTEND Orthopaedic Surgery
PROC: 30233N1 Transfusion of Nonautologous Red Blood Cells into Peripheral Vein, Percutaneous Approach (ICD-10-PCS; 2020-12-21)
PROC: 0QS636Z Reposition Right Upper Femur with Intramedullary Internal Fixation Device, Percutaneous Approach (ICD-10-PCS; principal; 2020-12-23)
DX: S72.141A Displaced intertrochanteric fracture of right femur, initial encounter for closed fracture (principal); J81.0 Acute pulmonary edema; M48.56XA Collapsed vertebra, not elsewhere classified, lumbar region, initial encounter for fracture; D62 Acute posthemorrhagic anemia; E87.1 Hypo-osmolality and hyponatremia; W18.30XA Fall on same level, unspecified, initial encounter; K44.9 Diaphragmatic hernia without obstruction or gangrene; Y92.009 Unspecified place in unspecified non-institutional (private) residence as the place of occurrence of the external cause; Z79.82 Long term (current) use of aspirin; Z79.84 Long term (current) use of oral hypoglycemic drugs; Z79.890 Hormone replacement therapy; Z79.899 Other long term (current) drug therapy; K21.9 Gastro-esophageal reflux disease without esophagitis; E03.9 Hypothyroidism, unspecified; E11.9 Type 2 diabetes mellitus without complications; E53.8 Deficiency of other specified B group vitamins; E78.5 Hyperlipidemia, unspecified; E87.5 Hyperkalemia; E87.70 Fluid overload, unspecified; I10 Essential (primary) hypertension; R33.9 Retention of urine, unspecified; Z20.822 Contact with and (suspected) exposure to COVID-19; Z96.612 Presence of left artificial shoulder joint; I25.10 Atherosclerotic heart disease of native coronary artery without angina pectoris; Z87.891 Personal history of nicotine dependence; Z90.710 Acquired absence of both cervix and uterus; Z88.2 Allergy status to sulfonamides; Z87.81 Personal history of (healed) traumatic fracture
CPT/HCPCS: 36415; 70450; 71045; 71250; 72125; 73502; 80048; 80053; 85025; 85610; 85730; 86850; 86900; 86901; 86920; 87635; 93005; 94760; 96361; 96374; 96375; 99285

== ENCOUNTER 2022-07-05 17:32 | Inpatient (IN) | payer MEDICARE, BC ==
[2022-07-05] MEDS ORDERED: SODIUM CHLORIDE 0.9% 1,000 ML IV ONE (17:48)
[2022-07-05] MEDS ORDERED: MORPHINE SULFATE 2 MG/ML SYRINGE IV STA (17:48)
--- NOTE | 2022-07-05 18:01 | ED ---
General Adult HPI - General Chief complaint: Fall Stated complaint: hip injury Time Seen by Provider: 07/05/22 17:35 Source: patient, EMS, RN notes reviewed, old records reviewed Mode of arrival: EMS Limitations: no limitations - History of Present Illness Initial comments: Patient is an 86-year-old female who presents emergency Department after a fall. States she had both of her hands full and she was looking to step up a curb, when she lost her balance and went to fall backwards. Believe she landed in a seated position on her left hip. Was unable to move or get up afterwards. Left leg is shortened and externally rotated. Does not believe she hit her head but is uncertain. States she did not syncopized. No loss of consciousness. Is not on blood thinners. Does have a history remarkable for prior right hip fracture status post repair by Dr. Alcala in 2020. Also history of hypertension. Denies any other obvious injuries other than pain in the left hip. Denies any numbness of the left leg or foot. Able to move the left foot and knee, however does get pain in the left hip which stops her. Reasons for further evaluation this time. Denies any back pain. Denies any blurry vision or headache. Denies chest pain, shortness breath, abdominal pain, nausea, vomiting. - Related Data Home Medications Medication Instructions Recorded Confirmed Levothyroxine Sodium [Synthroid] 112 mcg PO DAILY 01/08/14 07/05/22 Pioglitazone [Actos] 15 mg PO DAILY 09/24/17 07/05/22 carvediloL [Coreg] 12.5 mg PO BID 09/24/17 07/05/22 lisinopriL [Zestril] 10 mg PO DAILY 09/24/17 07/05/22 Atorvastatin [Lipitor] 20 mg PO HS 09/20/18 07/05/22 Multivitamins, Thera [Multivitamin 1 tab PO DAILY 01/21/19 07/05/22 (formulary)] Acetaminophen Tab [Tylenol] 325 - 650 mg PO Q4H PRN 07/05/22 07/05/22 Aspirin [[place] Aspirin EC] 81 mg PO DAILY 07/05/22 07/05/22 Allergies Allergy/AdvReac Type Severity Reaction Status Date / Time orange juice Allergy Rash/Hives Verified 07/05/22 19:51 Sulfa (Sulfonamide Allergy Nausea & Verified 07/05/22 19:51 Antibiotics) Vomiting, Rash, hives Review of Systems ROS Statement: Those systems with pertinent positive or pertinent negative responses have been documented in the HPI. Review of Systems: CONST: Denies fever EYES: Denies blurry vision ENT: Denies nasal congestion C/V: Denies Chest pain RESP: Denies shortness of breath GI: Denies abdominal pain : Denies dysuria SKIN: Denies rash. MSK: Endorses left hip pain NEURO: Denies headache ROS Other: All systems not noted in ROS Statement are negative. Past Medical History Past Medical History: Coronary Artery Disease (CAD), Diabetes Mellitus, GI Bleed, Hyperlipidemia, Hypertension, Thyroid Disorder History of Any Multi-Drug Resistant Organisms: None Reported Past Surgical History: Cholecystectomy, Hysterectomy Additional Past Surgical History / Comment(s): carotid artery, Right lower leg surgery in 2021 Past Anesthesia/Blood Transfusion Reactions: No Reported Reaction Past Psychological History: No Psychological Hx Reported Smoking Status: Former smoker Past Alcohol Use History: Rare Past Drug Use History: None Reported General Exam - General Exam Comments Initial Comments: General: Appears in mild distress secondary to left hip pain. HEAD: Normal with no signs of head trauma. Negative campoverde sign. Negative raccoon eyes. EYES: PERRLA, EOMI, conjunctiva normal, no discharge. Pupils are 3 mm equal bilaterally. ENT: Hearing grossly intact, normal oropharynx. RESPIRATORY: Clear breath sounds bilaterally. No wheezes, rales, or rhonchi. C/V: Regular rate and rhythm. S1 and S2 auscultated, no edema, peripheral puls es 2+ and intact throughout ABD: Abd is soft, nontender, nondistended EXT: Pelvis is stable. Tenderness to palpation over the left lateral hip. Left lower extremity is shortened, externally rotated. Neurovascular intact distally. No midline cervical, thoracic, lumbar spine tenderness to palpation. SKIN: No rashes or lesions observed on exposed skin. NEURO: Alert and oriented x 4. Cranial nerves II-XII intact. No focal sensory deficits. GCS of 15. Strength deficits in the left hip secondary to pain. Limitations: no limitations Course Vital Signs 07/05/22 07/05/22 07/05/22 17:38 19:00 19:40 Temperature 96.9 F L Pulse Rate 83 78 Respiratory 18 18 Rate Blood Pressure 173/76 185/71 O2 Sat by Pulse 97 95 94 L Oximetry Medical Decision Making - Medical Decision Making Was pt. sent in by a medical professional or institution (, [facility], WINDING INSPECTOR AND TESTER, urgent care, hospital, or fpc...) When possible be specific @ -No Did you speak to anyone other than the patient for history (EMS, parent, family, police, friend...)? What history was obtained from this source @ -No Did you review nursing and triage notes (agree or disagree)? Why? @ -I reviewed and agree with nursing and triage notes Were old charts reviewed (outside hosp., previous admission, EMS record, old EKG, old radiological studies, urgent care reports/EKG's, fpc records)? Report findings @ -No old charts were reviewed Differential Diagnosis (chest pain, altered mental status, abdominal pain women, abdominal pain men, vaginal bleeding, weakness, fever, dyspnea, syncope, headache, dizziness, GI bleed, back pain, seizure, CVA, palpatations, mental health, musculoskeletal)? @ -Left hip fracture, left hip strain, left hip sprain, femur fracture, intracranial injury. This list is not all inclusive. EKG interpreted by me (3pts min.). @ -None done X-rays interpreted by me (1pt min.). @ -Hip x-ray shows a comminuted left femoral neck fracture. Chest x-ray shows no acute cardiopulmonary process. Radiology was concerned for possible subluxation of the left shoulder arthroplasty or possible fracture of the patient's no pain or symptoms at the sites. I'm not concerned for this. Has n ormal range of motion of the left shoulder without issue. CT interpreted by me (1pt min.). @ -CT brain reveals no obvious acute process. U/S interpreted by me (1pt. min.). @ -None done What testing was considered but not performed or refused? (CT, X-rays, U/S, labs)? Why? @ -None What meds were considered but not given or refused? Why? @ -None Did you discuss the management of the patient with other professionals (professionals i.e. [facility] Vincent, [facility]ING INSPECTOR [employer] TE[employer], lab, RT, psych nurse, social work assistant, flatwork washer, teacher, president and chief commercial officer, catalytic case operator)? Give summary @ -No Was smoking cessation discussed for >3mins.? @ -No Was critical care preformed (if so, how long)? @ -No Were there social determinants of health that impacted care today? How? (Homelessness, low income, unemployed, alcoholism, drug addiction, transportation, low edu. Level, literacy, decrease access to med. care, long-term, rehab)? @ -No Was there de-escalation of care discussed even if they declined (Discuss DNR or withdrawal of care, Hospice)? DNR status @ -No What co-morbidities impacted this encounter? (DM, HTN, Smoking, COPD, CAD, Cancer, CVA, ARF, Chemo, Hep., AIDS, mental health diagnosis, sleep apnea, morbid obesity)? @ -None Was patient admitted / discharged? Hospital course, mention meds given and route, prescriptions, significant lab abnormalities, going to OR and other pertinent info. @ -Based on the patient's presentation and physical exam, appear she is expressing a mechanical fall resulting in what I suspect to be a left hip fracture as he left lower extremity is shortened and externally rotated. She'll be given IV morphine, IV fluid bolus. Basic labs will be obtained. We will obtain x-rays of left hip, pelvis, chest x-ray, as well as CT brain. She was in agreement this plan. Vital signs within acceptable limits. Patient is neurovascularly intact currently. Patient's labs are within acceptable limits. Patient's imaging is remarkable for a comminuted fracture of the left femoral neck. There was concern for possible humeral injury or subluxation of the left shoulder arthroplasty, howeve r patient's exam is unremarkable, no pain or tenderness and normal range of motion of left shoulder. No concern for left upper extremity injury at this time. CT imaging unremarkable. I updated the patient. She is placed on bedrest. She understands she has a left femoral neck fracture. She is made nothing by mouth after midnight. I spoke with orthopedics on-call who is also Dr. Alcala's group who the patient is familiar with his he did her right hip surgery and on-call physician is Dr. Gorman. He accepted the patient and was in agreement this plan. I also consulted medicine, and made to Dr. Atkins who is covering for Dr. Bell and normally covers for Dr. Solis. She accepted the consult. Patient was admitted in stable condition. Undiagnosed new problem with uncertain prognosis? @ -No Drug Therapy requiring intensive monitoring for toxicity (Heparin, Nitro, Insulin, Cardizem)? @ -No Were any procedures done? @ -No Diagnosis/symptom? @ -Fall Acute, or Chronic, or Acute on Chronic? @ -Acute Uncomplicated (without systemic symptoms) or Complicated (systemic symptoms)? @ -Complicated Side effects of treatment? @ -No Exacerbation, Progression, or Severe Exacerbation? @ -No Poses a threat to life or bodily function? How? (Chest pain, [place], [place], pneumonia, PE, COPD, DKA, ARF, appy, cholecystitis, CVA, Diverticulitis, Homicidal, Suicidal, threat to staff... and all critical care pts) @ -No Diagnosis/symptom? @ -Left comminuted femoral neck fracture Acute, or Chronic, or Acute on Chronic? @ -Acute Uncomplicated (without systemic symptoms) or Complicated (systemic symptoms)? @ -Uncomplicated Side effects of treatment? @ -none Exacerbation, Progression, or Severe Exacerbation] @ -no Poses a threat to life or bodily function? @ -no - Lab Data Result diagrams: 07/05/22 19:00 07/05/22 18:03 Lab Results 07/05/22 07/05/22 07/05/22 Range/Units 18:03 19:00 19:00 WBC 10.7 H (3.8-10.6) k/uL RBC 3.84 (3.80-5.40) m/uL Hgb 12.1 (11.4-16.0) gm/dL Hct 36.4 (34.0-46.0) % MCV 94.9 (80.0-100.0) fL MCH 31.6 (25.0-35.0) pg MCHC 33.3 (31.0-37.0) g/dL RDW 13.7 (11.5-15.5) % Plt Count 275 (150-450) k/uL MPV 8.9 Neutrophils % 76 % Lymphocytes % 15 % Monocytes % 6 % Eosinophils % 1 % Basophils % 0 % Neutrophils # 8.1 H (1.3-7.7) k/uL Lymphocytes # 1.6 (1.0-4.8) k/uL Monocytes # 0.6 (0-1.0) k/uL Eosinophils # 0.2 (0-0.7) k/uL Basophils # 0.0 (0-0.2) k/uL PT 10.4 (9.0-12.0) sec INR 1.0 (<1.2) APTT 21.9 L (22.0-30.0) sec Sodium 137 (137-145) mmol/L Potassium 4.1 (3.5-5.1) mmol/L Chloride 105 (98-107) mmol/L Carbon Dioxide 21 L (22-30) mmol/L Anion Gap 11 mmol/L BUN 27 H (7-17) mg/dL Creatinine 0.94 (0.52-1.04) mg/dL Est GFR (CKD-EPI)AfAm 64 (>60 ml/min/1.73 sqM) Est GFR (CKD-EPI)NonAf 56 (>60 ml/min/1.73 sqM) Glucose 168 H (74-99) mg/dL Calcium 8.8 (8.4-10.2) mg/dL Disposition Clinical Impression: Fall, Fracture of femoral neck, left Disposition: ADMITTED IP TO THIS HOSP Condition: Stable Time of Disposition: 19:50
[2022-07-05] MEDS ORDERED: ONDANSETRON 4 MG/2 ML VIAL IVP STA (18:11)
[2022-07-05 18:23] LABS: Calcium 8.8 mg/dL (8.4-10.2); Potassium 4.1 mmol/L (3.5-5.1)
[2022-07-05 19:14] LABS: Basophils % (A) 0 %; Eosinophils # (A) 0.2 k/uL (0-0.7); Eosinophils % (A) 1 %; HCT 36.4 % (34.0-46.0); HGB 12.1 gm/dL (11.4-16.0); Lymphocytes # (A) 1.6 k/uL (1.0-4.8); Lymphocytes % (A) 15 %; MCH 31.6 pg (25.0-35.0); MCHC 33.3 g/dL (31.0-37.0); MCV 94.9 fL (80.0-100.0); Mean Platelet Volume 8.9; Monocytes # (A) 0.6 k/uL (0-1.0); Monocytes % (A) 6 %; Neutrophils # (A) 8.1 k/uL (1.3-7.7); Neutrophils % (A) 76 %; Platelet Count 275 k/uL (150-450); RBC 3.84 m/uL (3.80-5.40); RDW 13.7 % (11.5-15.5); WBC 10.7 k/uL (3.8-10.6)
--- NOTE | 2022-07-05 19:31 | CT ---
EXAMINATION TYPE: CT brain wo con CT DLP: 1115.4 mGycm, Automated exposure control for dose reduction was used. DATE OF EXAM: 07/05/2022 7:26 PM COMPARISON: CT brain 12/18/2020. CLINICAL INDICATION:Female, 86 years old with history of fall, fall TECHNIQUE: Brain: Axial CT images of the brain were obtained with coronal and sagittal reformats created and rev iewed. Contrast used: None. Oral contrast used: None. FINDINGS: Brain: Extra-axial spaces: No abnormal extra-axial fluid collections. Ventricular system: Within normal limits Cerebral parenchyma: Cerebral atrophy. No acute intraparenchymal hemorrhage or mass effect. The fay -white junction is well differentiated. Scattered hypoattenuating areas are seen within the white mat ter. Cerebellum: Being hardening artifact limits complete evaluation of inferior segments. Visualized port ions are grossly unremarkable. Mass effect: No evidence of midline shift. Intracranial vasculature: Atherosclerotic calcifications of the intracranial vessels. Soft tissues: Normal. Calvarium/osseous structures: No depressed skull fracture. Paranasal sinuses and mastoid air cells: Clear. Mastoid air cells are Clear Visualized orbits: The lenses are surgically removed from the globes. IMPRESSION: 1. No acute intracranial process. 2. 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
[2022-07-05 19:37] LABS: Prothrombin Time 10.4 sec (9.0-12.0)
[2022-07-05 19:45] LABS: Partial Thromboplastin Time 21.9 sec (22.0-30.0)
--- NOTE | 2022-07-05 19:47 | XR ---
EXAMINATION TYPE: XR Hip LT and AP Pelvis DATE OF EXAM: 07/05/2022 6:43 PM INDICATION: Patient age:Female; 86 years old; Reason for study: fall; PHH. COMPARISON: Right hip radiographs 02/03/2021 right femur radiographs 12/19/2020, right femur radiograph s 12/18/2020 TECHNIQUE: The left hip was examined in the frontal and lateral projections and a AP pelvis. FINDINGS: There is a comminuted fracture of the left femoral neck with mild foreshortening of the dis christine femur. Femoral head remains normally positioned within the acetabulum. Multiple bony fragments ar e present at the fracture site. Degenerative changes of the pubic symphysis. Right femoral hardware with transverse fixation screws i n place. Visualized hardware appears intact. Degenerative changes of the lumbar spine. IMPRESSION: Comminuted left femoral neck fracture.
--- NOTE | 2022-07-05 19:50 | XR ---
EXAMINATION TYPE: XR chest 1V portable DATE OF EXAM: 07/05/2022 6:43 PM COMPARISON: CT chest 12/21/2020 TECHNIQUE: XR chest 1V portable . CLINICAL INDICATION:Female, 86 years old with history of fall; FINDINGS: Lungs/Pleura: There is no evidence of pleural effusion, focal consolidation, or pneumothorax. Subseg mental atelectasis of the lung bases bilaterally. Pulmonary vascularity: Unremarkable. Heart/mediastinum: Cardiomediastinal silhouette is unremarkable. Atherosclerotic calcifications are seen in the aorta. Musculoskeletal: Left total shoulder arthroplasty with subluxation of the humeral stem component rela tive to the glenoid component. Heterotopic calcification of the joint capsule. Subtle lucency along t he medial diaphysis may represent nondisplaced fracture versus projecting skinfold. IMPRESSION: 1. Inferior subluxation of the humeral stem of patient's left shoulder arthroplasty. 2. Questionable medial lucency along the humeral diaphysis concerning for subtle fracture. 3. No acute cardiopulmonary process.
[2022-07-05] MEDS ORDERED: NALOXONE 0.4 MG/ML 1 ML VIAL IV PRN (20:03)
[2022-07-05] MEDS ORDERED: ACETAMINOPHEN TAB 500 MG TAB PO PRN (20:05)
[2022-07-05] MEDS: carvediloL 12.5 MG TAB PO SCH (21:13)
[2022-07-05] MEDS: ATORVASTATIN 20 MG TAB PO SCH (21:13)
[2022-07-05] MEDS: SODIUM CHLORIDE 0.9% 1,000 ML IV SCH (21:13)
[2022-07-06] MEDS: MORPHINE SULFATE 4 MG/ML SYRINGE IV PRN ×2 (01:14→08:42)
[2022-07-06] MEDS: LEVOTHYROXINE 112 MCG TAB PO SCH (06:36)
[2022-07-06] MEDS: SODIUM CHLORIDE 0.9% 1,000 ML IV SCH ×2 (06:37→18:40)
[2022-07-06] MEDS: ASPIRIN 81 MG PO SCH (06:58)
[2022-07-06] MEDS: ONDANSETRON 4 MG/2 ML VIAL IVP PRN ×2 (07:48→18:49)
[2022-07-06 08:03] LABS: Glucose,Whole Blood 123 mg/dL (70-110)
[2022-07-06] MEDS: PIOGLITAZONE 15 MG TAB PO SCH (08:36)
[2022-07-06] MEDS: lisinopriL 10 MG TAB PO SCH (08:41)
[2022-07-06] MEDS: carvediloL 12.5 MG TAB PO SCH ×2 (08:42→18:40)
--- NOTE | 2022-07-06 09:34 | P.HPOR ---
History of Present Illness H&P Date: 07/06/22 Chief Complaint: Fall, left hip fracture History of Presenting Illness Patient is a pleasant 86-year-old female who presented to the ER via EMS after a fall in a parking lot. Patient states that she was at [employer] when attempting to get from the curb to the car without her walker when she fell. Patient states she landed onto her left hip and was unable to get up. She states she did not hit her head or have LOC. Patient denies any blood thinners. The patient states that she lives with her [id number] and is normally ind ependent with walker. Patient is known to our services regarding a right IM nail [place] [address] Alcala and 2019 left shoulder repair by Dr. Farfan. Patient seen and examined this morning. Patient is resting comfortably in bed. She states her pain is managed as long as she is not moving. She denies any numbness or tingling to bilateral lower extremities. Patient has remained nothing by mouth since arrival to the ER. Patient does have complaint of slight nausea, medications have been ordered. Discussed with patient surgical intervention of a left hip hemiarthroplasty, patient verbalizes understanding and is agreeable to proceed with procedure today. VSS. Patient has been afebrile and denies chest pain. Review of Systems Pertinent positives and negatives as discussed in HPI, a complete review of systems was performed and all other systems are negative. Physical Examination Inspection: Negative for any open fractures, ecchymosis, significant erythema/ulcers. Sensation: Sensation is equal, symmetric, bilaterally intact throughout the upper and lower extremities Palpation: TTP to palpation over the left hip and thigh Range of motion: Patient does have full range of motion bilateral upper and right lower extremities on exam. Left lower extremity is externally rotated, supported with pillow. Motor: 5/5 in all major motor groups in the bilateral upper and right lower extremity, 3+/5 in left lower extremity due to fracture and pain. Neurovascular: Radial pulse intact, 2+ bilaterally. Cap refill under 3 seconds in digits upper extremities. Assessment and Plan Bilateral hip and Pelvis xrays demonstrate a comminuted left femoral neck fracture with mild foreshortening of the distal femur. There are multiple bony fragments that are present at the fracture site. The right femoral hardware with transverse fixation screws are in place. 1. Fall from standing 2. Comminuted left femoral neck fracture -Appreciate library sales consultant and team management. -Keep NPO today -Surgery schedule for this afternoon; Left hip Hemiarthroplasty -Activity: Bed rest -Pain control: Adequate at this time -Meds: reviewed -GI ppx: senna, Miralax -Maintain larson catheter -Encourage IS 10x/hr * I reviewed and discussed this case with my attending Dr. Alcala, whom has reviewed this chart and films and is in agreement with assessment and plan of care as outlined above. I have personally seen and examined the patient, performed the documentation and the assessment and plan as written. Number of minutes spent on the visit: 20m. Past Medical History Past Medical History: Coronary Artery Disease (CAD), Diabetes Mellitus, GI Bleed, Hyperlipidemia, Hypertension, Thyroid Disorder History of Any Multi-Drug Resistant Organisms: None Reported Past Surgical History: Cholecystectomy, Hysterectomy Additional Past Surgical History / Comment(s): carotid artery, Right lower leg surgery in 2021 Past Anesthesia/Blood Transfusion Reactions: No Reported Reaction Past Psychological History: No Psychological Hx Reported Smoking Status: Former smoker Past Alcohol Use History: Rare Past Drug Use History: None Reported - Past Family History Mother Additional Family Medical History / Comment(s): etoh Father Family Medical History: Cancer Additional Family Medical History / Comment(s): esophageal CA Medications and Allergies Home Medications Medication Instructions Recorded Confirmed Type Levothyroxine Sodium [Synthroid] 112 mcg PO DAILY 01/08/14 07/05/22 History Pioglitazone [Actos] 15 mg PO DAILY 09/24/17 07/05/22 History carvediloL [Coreg] 12.5 mg PO BID 09/24/17 07/05/22 History lisinopriL [Zestril] 10 mg PO DAILY 09/24/17 07/05/22 History Atorvastatin [Lipitor] 20 mg PO HS 09/20/18 07/05/22 History Multivitamins, Thera [Multivitamin 1 tab PO DAILY 01/21/19 07/05/22 History (formulary)] Acetaminophen Tab [Tylenol] 325 - 650 mg PO Q4H PRN 07/05/22 07/05/22 History Aspirin [[place] Aspirin EC] 81 mg PO DAILY 07/05/22 07/05/22 History Allergies Allergy/AdvReac Type Severity Reaction Status Date / Time orange juice Allergy Rash/Hives Verified 04/02/23 19:51 Sulfa (Sulfonamide Allergy Nausea & Verified 07/05/22 19:51 Antibiotics) Vomiting, Rash, hives Results - Labs Labs: Abnormal Lab Results - Last 24 Hours (Table) 07/05/22 07/05/22 07/05/22 Range/Units 18:03 19:00 19:00 WBC 10.7 H (3.8-10.6) k/uL Neutrophils # 8.1 H (1.3-7.7) k/uL APTT 21.9 L (22.0-30.0) sec Carbon Dioxide 21 L (22-30) mmol/L BUN 27 H (7-17) mg/dL Glucose 168 H (74-99) mg/dL H & H 07/05/22 Range/Units 19:00 Hgb 12.1 (11.4-16.0) gm/dL Hct 36.4 (34.0-46.0) % Coagulation 07/05/22 Range/Units 19:00 INR 1.0 (<1.2) Result Diagrams: 07/05/22 19:00 07/05/22 18:03
[2022-07-06 10:41] LABS: HCT 32.9 % (37.2-46.3); HGB 10.4 g/dL (12.0-15.0); MCH 31.7 pg (27.0-32.0); MCHC 31.6 g/dL (32.0-37.0); MCV 100.3 fL (80.0-97.0); Mean Platelet Volume 11.7 fL (9.5-12.2); NRBC Per 100 WBC 0 /100 WBCS (0.0-0.0); Platelet Count 266 X 10*3/uL (140-440); RBC 3.28 X 10*6/uL (4.10-5.20); RDW 13.6 % (11.5-14.5); WBC 11.25 X 10*3/uL (4.50-10.00)
[2022-07-06 10:50] LABS: African American GFR (CKD) 77.9 (60.0-200.0); BUN/Creat Ratio 19.63 Ratio (12.00-20.00); Blood Urea Nitrogen 15.7 mg/dL (9.0-27.0); Calcium 8.6 mg/dL (8.7-10.3); Non-African American GFR(CKD) 67.2 (60.0-200.0); Potassium 4.1 mmol/L (3.5-5.5)
[2022-07-06 11:44] LABS: Glucose,Whole Blood 152 mg/dL (70-110)
[2022-07-06 12:21] LABS: Basophils # (A) 0.02 X 10*3/uL (0.00-0.10); Basophils % (A) 0.2 %; Eosinophils # (A) 0.08 X 10*3/uL (0.04-0.35); Eosinophils % (A) 0.7 %; Immature Grans, Automated 0.3 %; Lymphocytes # (A) 1.44 X 10*3/uL (0.90-5.00); Lymphocytes % (A) 12.8 %; Monocytes # (A) 1.55 X 10*3/uL (0.20-1.00); Monocytes % (A) 13.8 %; Neutrophils # (A) 8.13 X 10*3/uL (1.80-7.70); Neutrophils % (A) 72.2 %; RBC Morphology NORMAL
--- NOTE | 2022-07-06 12:43 | P.EN ---
meically stable to proceed for surgery.
--- NOTE | 2022-07-06 14:10 | P.PN ---
Progress Note - Text Progress Note Date: 07/06/22 Orthopedic Surgery Risk Review Loli Mann is a a 6-year-old female presenting for evaluation of sudden onset left hippain, inability to ambulate after. From standing. It was my pleasure to have seen and examined Loli Mann. In our visit today we have had a chance to go over subjective complaints, physical examination findings and treatments including the natural course history without intervention and various interventional options. her imaging demonstrates left femoral neck fracture complete, displaced. On physical exam, Loli Manndemonstrates pain with motion of left lower extremity, which is NV intact at this time. I have explained to the patient that this fracture needs stabilization. Based on the patients imaging, physical exam, and the rapid progression and disabling nature of her symptoms, at this time I recommend surgery in the form or a: left hip hemiarthroplasty I discussed the risk and benefits of this procedure at length with Loli Mann and family. Questions were invited and answered, and the patient wishes to proceed as outlined below. Currently, I am recommendin. Left hip hemiarthroplasty 2. Review of surgical risks and benefits as well as an educational packet on the proposed surgical procedure. Risks: All surgical procedures come with inherent risks, including those related to positioning, anesthesia, intraoperative findings, and postoperative complications. It is important to understand that surgery does not come with any guarantee of a successful outcome as complications and adverse events are always possible. The patient was given a handout discussing the surgical procedure and risks associated with the intervention, both of which were discussed with the patient. These risks include but are not limited to the following: - Experiencing same, different or even worse symptoms compared to before surgery. - Requiring further surgery or other forms of treatment presently or at some time in the future . - On an extreme but fortunately relatively rare basis severe complication such as blindness, stroke, heart attack, temporary and/or permanent nerve injury, paralysis, coma, or may occur, sometimes without known explanation. - Surgical complications may include but are not limited to risk of in fection, fluid accumulation in the surgical dissection site, including a seroma or hematoma, that requires additional surgery, wound drainage, bleeding, new numbness or weakness, vision changes/loss, spinal fluid leakage, non-healing and/or infected incision, headaches, difficulty or inability to swallow, hoarseness, hemopneumothorax, pneumothorax, injury to nerves, spinal cord, blood vessels, lymphatics or other vital organs (i.e., bowel injury, injury to the great vessels); heterotopic bone formation; complications related to the hardware such as screws, rods, including misplaced hardware, device failure, hardware fracture/breakage, or hardware loosening; retained surgical instrumentations or devices and the need for further surgery. - Medical risks of the planned surgery include but are not limited to generalized Infections to the whole body or local areas outside of the surgical site (sepsis), heart attack, bleeding, anaphylaxis, meningitis, seizure, epilepsy, hearing loss, burn bryan, laceration of the head or other areas of the body, bruising, hypersensitivity of the skin, bladder over distension; allergic reaction; shoulder injury related to positioning; fat, blood and air clots to other areas of the body like heart, lungs, brain; failure of internal organs such as lungs, kidneys, liver and excessive bleeding. If blood transfusions are necessary, note that transfusions may cause intolerance reactions such as anaphylaxis or other complex reactions. Despite best efforts, the results of surgery might not heal in terms of bone, soft tissues such as skin, fascia, ligaments, and joints. [facility] has multiple [facility] rooms with single and overlapping rooms running daily. They currently function under the required guidelines as produced by the Senate Finance Committee with regards to the overlapping rooms and will continue to comply with changes to this policy as they occur. The requirements include and are complied with as follows: (1) the critical portions of the overlapping rooms will not occur at the same time, (2) the attending physician will be physically present during the critical portions of the procedure and immediately available during the entire case, and (3) a back-up attending is designated should the primary attending not be immediately available. The patient has had a chance to review all the listed information, has been given print outs detailing this information, and has had all his/her questions answered to their satisfaction. It was my pleasure to have seen and examined Loli Mann. In our visit today we have had a chance to go over my understanding of our patient's current condition, the natural course history without intervention and various interventional options. Questions were invited and answered, and the patient wishes to proceed as outlined above. I have seen and examined the patient for 25 minutes and we have spent more than 50% of the time in repeat and detailed counseling about the patient's condition, its natural course history with out and as much as can be predicted with surgery and re-review of various surgical treatment options. In conclusion, Loli Mann and family requested we proceed with the above suggested surgery and are willing to accept risks and limitations of the suggested surgery as nature of the disease process and our best attempts at treatment for the condition. Thank you again for allowing us to be part of your patient's care. Please don't hesitate to contact me if you have any further questions. Signed and authenticated by: Baldemar Gonzalez [facility] [address] [facility], [address] [address]
[2022-07-06] MEDS ORDERED: LACTATED RINGERS 1,000 ML IV ONE (14:34)
[2022-07-06] MEDS ORDERED: ONDANSETRON 4 MG/2 ML VIAL IVP ONE (14:40)
[2022-07-06] MEDS ORDERED: DEXAMETHASONE SOD PHOSPHATE 4 MG/ML 1 ML VIAL IVP ONE (14:40)
[2022-07-06] MEDS ORDERED: TRANEXAMIC ACID 1,000 MG in SODIUM CHLORIDE 0.9% 100 ML IVPB PRN (14:48)
[2022-07-06] MEDS ORDERED: MIDAZOLAM 2 MG/2 ML VIAL ONE (14:55)
[2022-07-06] MEDS ORDERED: PROPOFOL 10 MG/ML 20 ML VIAL IV ONE (14:55)
[2022-07-06] MEDS ORDERED: ceFAZolin 1,000 MG in SODIUM CHLORIDE 0.9% 1,000 ML IRRIGATION ONE (15:47)
--- NOTE | 2022-07-06 16:09 | P.CONS ---
History of Present Illness - Reason for Consult Consult date: 07/06/22 Medical management Requesting physician: Baldemar Alcala - Chief Complaint Left femur fracture - History of Present Illness This is a pleasant 86-year-old patient, who follows Dr. Solis. Chronic stable medical conditions include coronary artery disease, diabetes, hype rlipidemia, hypertension, hypothyroid. At baseline uses a walker. Patient had stuff in both her hands was started on get up on a curb loss to balance and fell backwards. She fell on her left hip. Was unable to get up afterwards. No loss of consciousness. Did not hit her head. At her baseline she is able to get about. No chest pain or shortness of breath. Limited range of motion left hip. Patient received morphine for pain earlier. Sleepy but able to awake and answer questions Review of systems: GEN.: None EYES: None HEENT: None NECK: None RESPIRATORY: None CARDIOVASCULAR: None GASTROINTESTINAL: None GENITOURINARY: None MUSCULOSKELETAL: Joint pains LYMPHATICS: None HEMATOLOGICAL: None PSYCHIATRY: None NEUROLOGICAL: Uses a walker Past medical history to include: COPD, hypertension, hyperlipidemia, hypothyroidism thyroidism, diabetes mellitus type 2, chronic compression fracture L1, hiatal hernia, GERD, chronic kidney dysfunction, uses a walker at baseline Social history: Does smoke in the past. Alcohol rarely. Lives with her [id number]. Family history: Reviewed, noncontributory to presentation Physical examination: VITAL SIGNS: 98.5, 80, 17, 180/80, GENERAL: Laying in bed, sleepy but arousable EYES: Pupils equal, conjunctiva normal. NECK: JVD unable to assess; masses not palpable. HEART: First and second heart sounds are normal; no edema. LUNGS: Respiratory rate normal; decreased breath sounds ABDOMEN: Soft, nontender, liver spleen not palpable, no masses palpable. PSYCH: Sleepy but able to answer questions. 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 Some findings around the left shoulder. X-ray: Comminuted left femoral neck fracture CT brain: Cerebral atrophy and nonspecific white matter changes. EKG tracing personally reviewed by me-normal sinus rhythm Assessment and plan: -Acute left comminuted femoral neck fracture secondary to fall Pending surgery this afternoon. -Coronary artery disease Coreg 12.5 by mouth twice a day. Aspirin -Hyperlipidemia Lipitor 20 mg daily at bedtime -Chronic compression fracture L1 -Hiatal hernia with GERD PPI -Essential Hypertension Currently blood pressure elevated likely secondary to pain. Lisinopril 10 mg daily, Coreg 12.5 by mouth twice a day -Hypothyroidism Synthroid 112 g a day -Diabetes mellitus type 2 , oral hypoglycemic Actos. Follow Accu-Cheks. -Vitamin B12 deficiency B12 thousand micrograms daily -Chronic kidney dysfunction, uses a walker at baseline -Full code Shanta- Operative cardiovascular risk assessment: Patient has fair exercise tolerance. No cardiac pulmonary symptoms. Medically stable to proceed for surgery. Discussed with patient and nurse. Follow blood pressure closely. Thank you Dr. Alcala Past Medical History Past Medical History: Coronary Artery Disease (CAD), Diabetes Mellitus, GI Bleed, Hyperlipidemia, Hypertension, Thyroid Disorder History of Any Multi-Drug Resistant Organisms: None Reported Past Surgical History: Cholecystectomy, Hysterectomy Additional Past Surgical History / Comment(s): carotid artery, Right lower leg surgery in 2021 Past Anesthesia/Blood Transfusion Reactions: No Reported Reaction Past Psychological History: No Psychological Hx Reported Smoking Status: Former smoker Past Alcohol Use History: Rare Past Drug Use History: None Reported - Past Family History Mother Additional Family Medical History / Comment(s): etoh Father Family Medical History: Cancer Additional Family Medical History / Comment(s): esophageal CA Medications and Allergies Home Medications Medication Instructions Recorded Confirmed Type Levothyroxine Sodium [Synthroid] 112 mcg PO DAILY 01/08/14 07/05/22 History Pioglitazone [Actos] 15 mg PO DAILY 09/24/17 07/05/22 History carvediloL [Coreg] 12.5 mg PO BID 09/24/17 07/05/22 History lisinopriL [Zestril] 10 mg PO DAILY 09/24/17 07/05/22 History Atorvastatin [Lipitor] 20 mg PO HS 09/20/18 07/05/22 History Multivitamins, Thera [Multivitamin 1 tab PO DAILY 01/21/19 07/05/22 History (formulary)] Acetaminophen Tab [Tylenol] 325 - 650 mg PO Q4H PRN 07/05/22 07/05/22 History Aspirin [Barren Aspirin EC] 81 mg PO DAILY 07/05/22 07/05/22 History Allergies Allergy/AdvReac Type Severity Reaction Status Date / Time orange juice Allergy Rash/Hives Verified 07/05/22 19:51 Sulfa (Sulfonamide Allergy Nausea & Verified 07/05/22 19:51 Antibiotics) Vomiting, Rash, hives Physical Exam Vitals: Vital Signs Temp Pulse Pulse Resp BP BP Pulse Ox 07/06/22 07:38 98.5 F 80 17 184/80 97 07/06/22 06:00 70 16 185/85 98 07/06/22 05:00 65 16 173/80 98 07/06/22 04:00 78 16 181/83 94 L 07/06/22 03:00 76 16 168/71 97 07/06/22 02:00 68 16 174/73 99 07/06/22 01:00 78 16 164/66 99 07/06/22 00:00 142/60 07/05/22 23:00 79 16 136/55 98 07/05/22 22:00 75 16 185/80 99 07/05/22 21:00 79 16 178/80 96 07/05/22 20:00 185/71 95 07/05/22 19:40 94 L 07/05/22 19:00 78 18 195/77 88 L 07/05/22 18:00 173/76 07/05/22 17:40 173/76 98 07/05/22 17:38 96.9 F L 83 18 173/76 97 Intake and Output 07/05/22 07/06/22 07/06/22 22:59 06:59 14:59 Other: Voiding Method Incontinent External Catheter Weight 68.039 kg 68.039 kg Results CBC & Chem 7: 07/06/22 07:18 07/06/22 07:18 Labs: Abnormal Lab Results - Last 24 Hours (Table) 07/05/22 07/05/22 07/05/22 Range/Units 18:03 19:00 19:00 WBC 10.7 H (3.8-10.6) k/uL RBC (4.10-5.20) X 10*6/uL Hgb (12.0-15.0) g/dL Hct (37.2-46.3) % MCV (80.0-97.0) fL MCHC (32.0-37.0) g/dL Neutrophils # 8.1 H (1.3-7.7) k/uL Monocytes # (0.20-1.00) X 10*3/uL APTT 21.9 L (22.0-30.0) sec Carbon Dioxide 21 L (22-30) mmol/L Anion Gap (10.00-18.00) mmol/L BUN 27 H (7-17) mg/dL Glucose 168 H (74-99) mg/dL POC Glucose (mg/dL) (70-110) mg/dL Calcium (8.7-10.3) mg/dL 07/06/22 07/06/22 07/06/22 Range/Units 07:18 07:18 08:01 WBC 11.25 H (3.8-10.6) k/uL RBC 3.28 L (4.10-5.20) X 10*6/uL Hgb 10.4 L (12.0-15.0) g/dL Hct 32.9 L (37.2-46.3) % MCV 100.3 H (80.0-97.0) fL MCHC 31.6 L (32.0-37.0) g/dL Neutrophils # 8.13 H (1.3-7.7) k/uL Monocytes # 1.55 H (0.20-1.00) X 10*3/uL APTT (22.0-30.0) sec Carbon Dioxide (22-30) mmol/L Anion Gap 8.00 L (10.00-18.00) mmol/L BUN (7-17) mg/dL Glucose 133 H (74-99) mg/dL POC Glucose (mg/dL) 123 H (70-110) mg/dL Calcium 8.6 L (8.7-10.3) mg/dL 07/06/22 Range/Units 11:39 WBC (3.8-10.6) k/uL RBC (4.10-5.20) X 10*6/uL Hgb (12.0-15.0) g/dL Hct (37.2-46.3) % MCV (80.0-97.0) fL MCHC (32.0-37.0) g/dL Neutrophils # (1.3-7.7) k/uL Monocytes # (0.20-1.00) X 10*3/uL APTT (22.0-30.0) sec Carbon Dioxide (22-30) mmol/L Anion Gap (10.00-18.00) mmol/L BUN (7-17) mg/dL Glucose (74-99) mg/dL POC Glucose (mg/dL) 152 H (70-110) mg/dL Calcium (8.7-10.3) mg/dL
[2022-07-06] MEDS ORDERED: MORPHINE SULFATE 2 MG/ML SYRINGE IV PRN (16:31)
[2022-07-06] MEDS ORDERED: NALOXONE 0.4 MG/ML 1 ML VIAL IV PRN (16:31)
[2022-07-06 17:02] LABS: Glucose,Whole Blood 146 mg/dL (70-110)
--- NOTE | 2022-07-06 18:39 | XR ---
EXAMINATION TYPE: XR Hip Limited LT DATE OF EXAM: 07/06/2022 5:55 PM INDICATION: Patient age:Female; 86 years old; Reason for study: s/p left hip hemiarthroplasty; P COMPARISON: 07/05/2022 TECHNIQUE: The left hip was examined in the frontal projection FINDINGS: Post arthroplasty changes, hardware is intact, alignment is appropriate. No evidence of fra cture. Postoperative changes of the soft tissues with subcutaneous gas. No evidence of any acute osse ous pathology or joint dislocation. IMPRESSION: Left hip arthroplasty with hardware intact and in appropriate alignment. No acute fracture.
--- NOTE | 2022-07-06 18:54 | P.OP ---
Date of Procedure: 07/06/22 Preoperative Diagnosis: 1. Left femoral neck fracture, complete, displaced 2. s/p ffs Postoperative Diagnosis: 1. Left femoral neck fracture, complete, displaced 2. s/p ffs Procedure(s) Performed: 1. Left hip hemiarthroplasty ([id number]) Implants: Uribe and nephew polar stem F2 bp head 46 Anesthesia: GETA Surgeon: Baldemar Alcala Strapping Machine Tender #1: Evan Cheung (Was present and assisted with all aspects of the case from positioning to dressing placement) Estimated Blood Loss (ml): 50 IV fluids (ml): 300 Urine output (ml): 1,200 Pathology: none sent Condition: stable Disposition: PACU Indications for Procedure: Loli Mann is a a 6-year-old female presenting for evaluation of sudden onset left hippain, inability to ambulate after. From standing. It was my pleasure to have seen and examined Loli Mann. In our visit today we have had a chance to go over subjective complaints, physical examination findings and treatments including the natural course history without intervention and various interventional options. her imaging demonstrates left femoral neck fracture complete, displaced. On physical exam, Loli Manndemonstrates pain with motion of left lower extremity, which is NV intact at this time. I have explained to the patient that this fracture needs stabilization. Based on the patients imaging, physical exam, and the rapid progression and disabling nature of her symptoms, at this time I recommend surgery in the form or a: left hip hemiarthroplasty I discussed the risk and benefits of this procedure at length with Loli Mann and family. Questions were invited and answered, and the patient wishes to proceed as outlined below. Currently, I am recommendin. Left hip hemiarthroplasty Description of Procedure: Left Hip Hemiarthroplasty The patient was seen and examined in the preoperative area. All preoperative protocols were followed. Informed consent was obtained risks and benefits of the procedure were discussed at length. Risks including bleeding infection damage to the surrounding tissue and risk of reoperation were discussed with the patient. Risk of anesthesia up to and including was a discussed with the patient. These are outlined in the risk reviewed. They were willing to accept these risks and all of the risks of surgery. The patient was given a weight- based dose of antibiotics in the form of 2 g Ancef. The patient was seen and evaluated by the anesthesia team who deemed them fit for surgery. The site was marked, the patient was willing to proceed with the procedure. The patient was transferred to the operative suite by the Department of anesthesia. There were then drifted off to sleep by the department of anesthesia and spinal anesthesia was used. Once adequate anesthesia had been obtained the patient was carefully transferred to the operative bed and placed in the lateral decubitus position secured with posts with an axillary role and appropiate padding. All bony prominences were padded accordingly. SCDs were placed on the nonoperative lower extremities. Arms were well padded. The Left leg was exposed and 1015 placed around the site. Preoperative briefing was done with the operative team and everyone was ready for the procedure to start. The patients right leg was then prepped and draped in the normal sterile fashion. Timeout was then performed and all parties in agreement with the procedure to be performed. Standard incision was marked for posterior approach to the hip. Skin incision made and dissection taken down to the TFL which was identified and split with its fibers. Charnley retractor placed and bursa identified along with vastus insertion and gluteus medius. Medius was protected and posterior short external rotators along with capsule and piriformus which was tagged, identified and released. Capsulotomy in an L shape was performed along the superior neck which allowed for dislocation of the fractured stump. Shoulder was palpated along with Lesser trochanter and clean up cut made 1 cm superior to the LT. Once this was done retractors placed and the head was removed with a cork srew and T handle. Once removed it was sized and a trial head was placed and had good suction fit. Attention was then turned to femoral preparation. Box osteotome was used to enter followed by canal finder and lateralizer. Rat tail then used to widen this. Sequential broaching was then performed until the desired size and fit. Once this was achieved a head and neck combo was trialed. Once reduced the hit was taken through a range of motion and was stable in all positions, had good motion and leg lengths were equal. The hip was then atraumatially dislocated and the braoch checked, it was stable and so final sizes selected. The wound, acetabulum and femoral canal were then irrigated copiously with pulse lavage and NSS. Canal and acetabulum inspected and were appropriate. Final implants were then confirmed and femoral stem impacted into position and was stable. Bipolar head combo was then assembled and placed and impacted into position and tested and was stable. The hip was then reduced and taken through a ROM again and was stable and had good length. The wound was again irrigated. Posterior capsule w as then stitched with ethibond suture and passed through three drill holes made in the posterior GT. These were then tightened and tied. The capsule was then oversewn with an ethibond stitch for tight closure. ROM showed good tension and good closure. Charnley removed and TFL repaired with #1 vicryl in running locking fashion. Deep subq closed with 0 Vicryl, Superficial with 2-0 vicryl and skin with jg. Wound edges approximated well. The wound was then cleaned and dressed sterrilly with Optifoam dressing. The patient was then transferred back to their hospital bed. There were awakened by department of anesthesia having tolerated the procedure very well with no complications. Hip abduction pillow placed. The patient was then transported to the postoperative care unit in stable condition.
[2022-07-06 19:11] LABS: Basophils % (A) 0 %; Eosinophils % (A) 0 %; Lymphocytes # (A) 0.8 k/uL (1.0-4.8); Lymphocytes % (A) 7 %; MCH 31.7 pg (25.0-35.0); MCHC 32.4 g/dL (31.0-37.0); MCV 97.7 fL (80.0-100.0); Mean Platelet Volume 9.5; Monocytes # (A) 0.3 k/uL (0-1.0); Monocytes % (A) 3 %; Neutrophils # (A) 10.1 k/uL (1.3-7.7); Neutrophils % (A) 90 %; Platelet Count 250 k/uL (150-450); RBC 3.48 m/uL (3.80-5.40); RDW 13.7 % (11.5-15.5); WBC 11.3 k/uL (3.8-10.6)
[2022-07-06 21:10] LABS: Glucose,Whole Blood 137 mg/dL (70-110)
[2022-07-06] MEDS: ATORVASTATIN 20 MG TAB PO SCH (21:12)
[2022-07-06] MEDS: SENNOSIDES-DOCUSATE SODIUM 1 EACH TAB PO SCH (21:12)
[2022-07-06] MEDS: HYDROcodone/APAP 5-325MG 1 EACH TAB PO PRN (22:50)
[2022-07-07] MEDS: MORPHINE SULFATE 4 MG/ML SYRINGE IV PRN (01:41)
[2022-07-07] MEDS: SODIUM CHLORIDE 0.9% 1,000 ML IV SCH ×3 (01:43→23:18)
[2022-07-07] MEDS: HYDROcodone/APAP 5-325MG 1 EACH TAB PO PRN ×3 (06:10→18:57)
[2022-07-07] MEDS: LEVOTHYROXINE 112 MCG TAB PO SCH (06:11)
[2022-07-07 06:12] LABS: Glucose,Whole Blood 142 mg/dL (70-110)
--- NOTE | 2022-07-07 08:57 | P.PN ---
Subjective Progress Note Date: 07/07/22 Principal diagnosis: Fall from standing Left hip fracture Patient seen and examined this morning. Patient is resting comfortably in bed. She currently denies any pain to her left hip. She has states she has not been up since the procedure. Informed patient that physical therapy will be working with her today and to make sure that her pain is managed prior to therapy. Surgical dressing is clean dry and intact. Patient denies any numbness or tingling to left lower extremity. Patient has been afebrile, denies nausea /vomiting, or chest pain. Objective - Vital Signs Vital signs: Vital Signs Temp 98.3 F 07/07/22 02:06 Pulse 84 07/07/22 02:06 Resp 15 07/07/22 02:06 BP 164/70 07/07/22 02:06 Pulse Ox 92 L 07/07/22 02:06 FiO2 Intake & Output 07/06/22 07/07/22 07/07/22 18:59 06:59 18:59 Intake Total 801 Output Total 1850 400 Balance -1049 -400 Weight 68.039 kg Intake: IV 801 Oral 0 Output: Urine 1800 400 Estimated Blood Loss 50 Other: Voiding Method Incontinent Indwelling Catheter External Catheter # Voids 0 - Exam Inspection: Negative for any open fractures, ecchymosis, significant erythema/ulcers. Surgical dressing is CDI over left hip. Sensation: Sensation is equal, symmetric, bilaterally intact throughout the upper and lower extremities Palpation: TTP to palpation over the left hip and thigh Range of motion: Patient does have full range of motion bilateral upper and right lower extremities on exam. Left lower extremity is limited due to pain and stiffness from recent surgical procedure. Motor: 5/5 in all major motor groups in the bilateral upper and right lower extremity, 4/5 in left lower extremity. Neurovascular: Radial pulse intact, 2+ bilaterally. Cap refill under 3 seconds in digits upper extremities - Labs CBC & Chem 7: 07/06/22 18:52 07/06/22 07:18 Labs: Abnormal Lab Results - Last 24 Hours (Table) 07/06/22 07/06/22 07/06/22 Range/Units 07:18 07:18 08:01 WBC 11.25 H (4.50-10.00) X 10*3/uL RBC 3.28 L (4.10-5.20) X 10*6/uL Hgb 10.4 L (12.0-15.0) g/dL Hct 32.9 L (37.2-46.3) % MCV 100.3 H (80.0-97.0) fL MCHC 31.6 L (32.0-37.0) g/dL Neutrophils # 8.13 H (1.80-7.70) X 10*3/uL Lymphocytes # (1.0-4.8) k/uL Monocytes # 1.55 H (0.20-1.00) X 10*3/uL Anion Gap 8.00 L (10.00-18.00) mmol/L Glucose 133 H (70-110) mg/dL POC Glucose (mg/dL) 123 H (70-110) mg/dL Calcium 8.6 L (8.7-10.3) mg/dL 07/06/22 07/06/22 07/06/22 Range/Units 11:39 17:00 18:52 WBC 11.3 H (4.50-10.00) X 10*3/uL RBC 3.48 L (4.10-5.20) X 10*6/uL Hgb 11.0 L (12.0-15.0) g/dL Hct (37.2-46.3) % MCV (80.0-97.0) fL MCHC (32.0-37.0) g/dL Neutrophils # 10.1 H (1.80-7.70) X 10*3/uL Lymphocytes # 0.8 L (1.0-4.8) k/uL Monocytes # (0.20-1.00) X 10*3/uL Anion Gap (10.00-18.00) mmol/L Glucose (70-110) mg/dL POC Glucose (mg/dL) 152 H 146 H (70-110) mg/dL Calcium (8.7-10.3) mg/dL 07/06/22 07/07/22 Range/Units 21:09 06:10 WBC (4.50-10.00) X 10*3/uL RBC (4.10-5.20) X 10*6/uL Hgb (12.0-15.0) g/dL Hct (37.2-46.3) % MCV (80.0-97.0) fL MCHC (32.0-37.0) g/dL Neutrophils # (1.80-7.70) X 10*3/uL Lymphocytes # (1.0-4.8) k/uL Monocytes # (0.20-1.00) X 10*3/uL Anion Gap (10.00-18.00) mmol/L Glucose (70-110) mg/dL POC Glucose (mg/dL) 137 H 142 H (70-110) mg/dL Calcium (8.7-10.3) mg/dL Assessment and Plan Assessment: Postop day 1: Left hip hemiarthroplasty Fall from standing Left hip fracture Plan: -Appreciate data consultant and team management. -Activity: Ambulate QID, OOB all meals, up and about, limit lifting bending twisting to less than 5 lbs. Use walker or cane if needed for stability. -Daily PT/OT, increase ambulation strength and balance. -Pain control: Adequate at this time -Meds: reviewed -GI ppx: senna, Miralax -DC larson when up and about, bedside commode if needed -DVT PPX: OK to restart Heparin tonight -Hygiene: Shower today. Maintain dressing clean and dry. -Encourage IS 10x/hr -Dispo: Anticipate discharge [facility] vs home with homecare within the next 24-48 hrs *I reviewed and discussed this case with my attending Dr. Alcala, whom has reviewed this chart and films and is in agreement with assessment and plan of care as outlined above. I have personally seen and examined the patient, performed the documentation and the assessment and plan as written. Number of minutes spent on the visit: 10m.
[2022-07-07] MEDS: ASPIRIN 81 MG PO SCH (09:54)
[2022-07-07] MEDS: lisinopriL 10 MG TAB PO SCH (09:54)
[2022-07-07] MEDS: ENOXAPARIN 30 MG/0.3 ML SYRINGE SQ SCH (09:54)
[2022-07-07] MEDS: MULTIVITAMINS, THERA 1 EACH TAB PO SCH (09:54)
[2022-07-07] MEDS: carvediloL 12.5 MG TAB PO SCH ×2 (09:54→18:55)
[2022-07-07] MEDS: PIOGLITAZONE 15 MG TAB PO SCH (09:55)
[2022-07-07 11:52] LABS: Glucose,Whole Blood 150 mg/dL (70-110)
--- NOTE | 2022-07-07 13:55 | P.PN ---
Progress Note - Text Progress Note Date: 07/07/22 - Chief Complaint Left femur fracture - History of Present Illness This is a pleasant 86-year-old patient, who follows Dr. Solis. Chronic stable medical conditions include coronary artery disease, diabetes, hyperlipidemia, hypertension, hypothyroid. At baseline uses a walker. Patient had stuff in both her hands was started on get up on a curb loss to balance and fell backwards. She fell on her left hip. Was unable to get up afterwards. No loss of consciousness. Did not hit her head. At her baseline she is able to get about. No chest pain or shortness of breath. Limited range of motion left hip. Patient received morphine for pain earlier. Sleepy but able to awake and answer questions 07/07/2022: Up in a chair. Had a breakfast. Pain control. No nausea vomiting. Answering questions. Past medical history to include: COPD, hypertension, hyperlipidemia, hypothyroidism thyroidism, diabetes mellitus type 2, chronic compression fracture L1, hiatal hernia, GERD, chronic kidney dysfunction, uses a walker at baseline Social history: Does smoke in the past. Alcohol rarely. Lives with her [id number]. Family history: Reviewed, noncontributory to presentation Physical examination: VITAL SIGNS: 97.8, 86, 17, 133/68, 97% on 3 L GENERAL: Up in a recliner, awake EYES: Pupils equal, conjunctiva normal. NECK: JVD unable to assess; masses not palpable. HEART: First and second heart sounds are normal; no edema. LUNGS: Respiratory rate normal; decreased breath sounds ABDOMEN: Soft, nontender, liver spleen not palpable, no masses palpable. 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 Some findings around the left shoulder. X-ray: Comminuted left femoral neck fracture CT brain: Cerebral atrophy and nonspecific white matter changes. EKG tracing personally reviewed by me-normal sinus rhythm Assessment and plan: -Acute left comminuted femoral neck fracture secondary to fall Left hip hemiarthroplasty by Dr. Alcala on July 06. -Coronary artery disease Coreg 12.5 by mouth twice a day. Aspirin -Hyperlipidemia Lipitor 20 mg daily at bedtime -Chronic compression fracture L1 -Hiatal hernia with GERD PPI -Essential Hypertension Currently blood pressure elevated likely secondary to pain. Lisinopril 10 mg daily, Coreg 12.5 by mouth twice a day -Hypothyroidism Synthroid 112 g a day -Diabetes mellitus type 2 , oral hypoglycemic Actos. Follow Accu-Cheks. -Vitamin B12 deficiency B12 thousand micrograms daily -Chronic gait dysfunction, uses a walker at baseline -Full code Shanta- Operative cardiovascular risk assessment: Patient has fair exercise tolerance. No cardiac pulmonary symptoms. Medically stable to proceed for surgery. Discussed with patient and nurse. Follow blood pressure closely. Continue current medications. PTOT. Discussed with patient. Possible rehab per PTOT. Thank you Dr. Alcala
[2022-07-07] MEDS: ONDANSETRON 4 MG/2 ML VIAL IVP PRN (14:10)
[2022-07-07 17:04] LABS: Glucose,Whole Blood 162 mg/dL (70-110)
[2022-07-07] MEDS: KETOROLAC 15 MG/ML 1 ML VIAL IVP PRN (18:57)
[2022-07-07] MEDS: SENNOSIDES-DOCUSATE SODIUM 1 EACH TAB PO SCH (21:33)
[2022-07-07] MEDS: ATORVASTATIN 20 MG TAB PO SCH (21:33)
[2022-07-07 21:42] LABS: Glucose,Whole Blood 145 mg/dL (70-110)
[2022-07-08] MEDS: KETOROLAC 15 MG/ML 1 ML VIAL IVP PRN (02:26)
[2022-07-08 05:52] LABS: Glucose,Whole Blood 156 mg/dL (70-110)
[2022-07-08] MEDS: LEVOTHYROXINE 112 MCG TAB PO SCH (05:58)
[2022-07-08] MEDS: carvediloL 12.5 MG TAB PO SCH ×2 (05:58→16:52)
--- NOTE | 2022-07-08 09:29 | P.PN ---
Subjective Progress Note Date: 07/08/22 Principal diagnosis: status post left hip hemiarthroplasty Patient was evaluated today at bedside, she is resting comfortably. She was eating breakfast upon entry to the room. She states that the pain is currently controlled. She has been ambulating with the assistance of a walker and physical therapy. She has had some difficulty with urination, her catheter was removed, they have been monitoring her output. She currently denies headaches, lightheadedness, chest pain or shortness of breath. Objective - Vital Signs Vital signs: Vital Signs Temp 97.9 F 07/08/22 08:00 Pulse 75 07/08/22 08:00 Resp 17 07/08/22 08:00 BP 172/78 07/08/22 08:00 Pulse Ox 96 07/08/22 08:00 FiO2 Intake & Output 07/07/22 07/08/22 07/08/22 18:59 06:59 18:59 Output Total 150 0 Balance -150 0 Output: Urine 150 0 Uretheral (Navarrete) 50 Other: Voiding Method Bedside Commode # Voids 1 - Exam Left lower extremity: Incision is clean, dry, and intact. The foam dressing is in good condition. [There is minimal soft tissue swelling and ecchymosis surrounding the medial and lateral aspects of the incision.] Calf is soft, no tenderness with palpation. Plantar flexion, dorsiflexion, EHL, FHL are intact. Sensory exam to light touch throughout the extremity is intact, [dorsal pedis pulses 2+.] - Labs CBC & Chem 7: 07/06/22 18:52 07/06/22 07:18 Labs: Abnormal Lab Results - Last 24 Hours (Table) 07/07/22 07/07/22 07/07/22 Range/Units 11:50 17:02 21:40 POC Glucose (mg/dL) 150 H 162 H 145 H (70-110) mg/dL 07/08/22 Range/Units 05:50 POC Glucose (mg/dL) 156 H (70-110) mg/dL Assessment and Plan Assessment: Postoperative day #2 status post left hip hemiarthroplasty Plan: Pain control, continues current medications DVT prophylaxis, continue current medications Encourage incentive spirometer Continue work with PT/OT, recommend weight-bear as tolerated with walker Abductor pillow while in bed Medical recommendations Continue to monitor urinary retention Discharge planning: On the orthopedic standpoint she is stable for discharge to subacute rehab, will reassess later this afternoon for possible discharge
[2022-07-08] MEDS: lisinopriL 10 MG TAB PO SCH (09:38)
[2022-07-08] MEDS: ENOXAPARIN 30 MG/0.3 ML SYRINGE SQ SCH (09:38)
[2022-07-08] MEDS: ASPIRIN 81 MG PO SCH (09:38)
[2022-07-08] MEDS: MULTIVITAMINS, THERA 1 EACH TAB PO SCH (09:38)
[2022-07-08] MEDS: PIOGLITAZONE 15 MG TAB PO SCH (09:38)
[2022-07-08 11:16] LABS: Glucose,Whole Blood 236 mg/dL (70-110)
--- NOTE | 2022-07-08 15:44 | XR ---
EXAMINATION TYPE: XR chest 1V portable DATE OF EXAM: 07/08/2022 CLINICAL HISTORY: Difficulty breathing and hypoxia. TECHNIQUE: Single AP portable upright view of the chest is obtained. COMPARISON: Chest x-ray from 3 days earlier FINDINGS: Osseous structures are demineralized. Surgical changes left shoulder is redemonstrated. Th ere are chronic parenchymal changes with Left greater than right bibasilar opacities currently. Cardi ac silhouette size is stable and upper limits of normal. IMPRESSION: Chronic changes with left greater than right bibasilar acute infiltrate and/or atelectasi s and suspected tiny bilateral pleural effusions now present.
--- NOTE | 2022-07-08 16:37 | P.PN ---
Progress Note - Text Progress Note Date: 07/08/22 - Chief Complaint Left femur fracture Hospital course: This is a pleasant 86-year-old patient, who follows Dr. Solis. Chronic stable medical conditions include coronary artery disease, diabetes, hyperlipidemia, hypertension, hypothyroid. At baseline uses a walker. Patient had stuff in both her hands was started on get up on a curb loss to balance and fell backwards. She fell on her left hip. Was unable to get up afterwards. No loss of consciousness. Did not hit her head. At her baseline she is able to get about. No chest pain or shortness of breath. Limited range of motion left hip. Patient received morphine for pain earlier. Sleepy but able to awake and answer questions 07/07/2022: Up in a chair. Had a breakfast. Pain control. No nausea vomiting. Answering questions. 07/08/2022: Patient became hypoxic last night. This morning on 3 L nasal cannula. No obvious tachypnea. No fever no chills. No cough. Doppler ultrasound being ordered to rule out DVT. Oral intake about 50% Past medical history to include: COPD, hypertension, hyperlipidemia, hypothyroidism thyroidism, diabetes mellitus type 2, chronic compression fracture L1, hiatal hernia, GERD, chronic kidney dysfunction, uses a walker at baseline Social history: Does smoke in the past. Alcohol rarely. Lives with her [id number]. Family history: Reviewed, noncontributory to presentation Physical examination: VITAL SIGNS: 97.8, 83, 20, 176/75, 94% on 3 L GENERAL: In reclining in bed. EYES: Pupils equal, conjunctiva normal. NECK: JVD unable to assess; masses not palpable. HEART: First and second heart sounds are normal; no edema. LUNGS: Respiratory rate normal; decreased breath sounds ABDOMEN: Soft, nontender, liver spleen not palpable, no masses palpable. 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 Some findings around the left shoulder. X-ray: Comminuted left femoral neck fracture CT brain: Cerebral atrophy and nonspecific white matter changes. EKG tracing personally reviewed by me-normal sinus rhythm Assessment and plan: -Acute hypoxic respiratory failure. Postop. Chest x-ray clear. Altered Doppler Lower Extremity to Rule Out DVT. -Acute left comminuted femoral neck fracture secondary to fall Left hip hemiarthroplasty by Dr. Alcala on July 06. -Coronary artery disease Coreg 12.5 by mouth twice a day. Aspirin -Hyperlipidemia Lipitor 20 mg daily at bedtime -Chronic compression fracture L1 -Hiatal hernia with GERD PPI -Essential Hypertension Currently blood pressure elevated likely secondary to pain. Lisinopril 10 mg daily, Coreg 12.5 by mouth twice a day -Hypothyroidism Synthroid 112 g a day -Diabetes mellitus type 2 , oral hypoglycemic Actos. Follow Accu-Cheks. -Vitamin B12 deficiency B12 thousand micrograms daily -Chronic gait dysfunction, uses a walker at baseline -Full code Chest x-ray noted. Doppler ultrasound to rule out DVT. Thank you Dr. Alcala
[2022-07-08 16:45] LABS: Glucose,Whole Blood 140 mg/dL (70-110)
--- NOTE | 2022-07-08 18:13 | US ---
EXAMINATION TYPE: US venous doppler duplex LE DATE OF EXAM: 07/08/2022 5:50 PM COMPARISON: NONE CLINICAL HISTORY: Rule out DVT. Rule out DVT. Left hip replaced 07/06/22. No pain, redness, or swelling SIDE PERFORMED: Bilateral TECHNIQUE: The lower extremity deep venous system is examined utilizing real time linear array sonog judith with graded compression, doppler sonography and color-flow sonography. VESSELS IMAGED: Common Femoral Vein Deep Femoral Vein Greater Saphenous Vein * Femoral Vein Popliteal Vein Small Saphenous Vein * Proximal Calf Veins (* superficial vessels) Right Leg: Negative for DVT Left Leg: Negative for DVT IMPRESSION: Grayscale, color doppler, spectral doppler imaging performed of the deep veins of the lo wer extremities. There is normal flow, compressibility, vascular waveforms.
[2022-07-08] MEDS ORDERED: RX INFO: IV CONTRAST WAS GIVEN 1 EACH MISC MISCELLANE PRN (18:23)
--- NOTE | 2022-07-08 19:25 | CT ---
EXAMINATION TYPE: CT angio chest CT DLP: 464.1 mGycm, Automated exposure control for dose reduction was used. DATE OF EXAM: 07/08/2022 7:14 PM COMPARISON: Multiple CTs of the chest with most recent on 12/21/2020. CLINICAL INDICATION:Female, 86 years old with history of hypoxia; TECHNIQUE/CONTRAST: CTA scan of the thorax is performed with IV Contrast, patient injected with 77ml mL of Isovue 300, pu lmonary embolism protocol. MIP images are created and reviewed these are created on a separate works tation.. FINDINGS: Pulmonary Artery: There is no evidence for a filling defect within the pulmonary vasculature to sugge st acute pulmonary embolism. The pulmonary artery is of normal size. Lungs/Pleura: Trace bilateral pleural effusions. No pneumothorax or airspace consolidation. Atelectas is in the lung bases. Mild intralobular septal thickening. Airway: Large airways are patent. Heart: The heart is mildly enlarged for size. There is coronary artery calcifications. Vasculature: No evidence of aortic aneurysm. Mediastinum: No gross evidence of adenopathy. Moderate hiatal hernia. Musculoskeletal: No acute osseous abnormalities Soft Tissues: Unremarkable. Lower neck: No significant findings. Upper Abdomen: No significant findings. IMPRESSION: 1. No evidence of pulmonary embolism. 2. Findings suggestive of congestive heart failure with cardiomegaly, pulmonary vascular congestion a nd trace bilateral pleural effusions. 3. Moderate hiatal hernia is present.
[2022-07-08] MEDS: ATORVASTATIN 20 MG TAB PO SCH (20:27)
[2022-07-08] MEDS: SENNOSIDES-DOCUSATE SODIUM 1 EACH TAB PO SCH (20:27)
[2022-07-08 20:49] LABS: Glucose,Whole Blood 192 mg/dL (70-110)
[2022-07-08] MEDS: MORPHINE SULFATE 4 MG/ML SYRINGE IV PRN (22:31)
[2022-07-09 04:28] VITALS: RESP 17
[2022-07-09 04:38] LABS: Basophils # (A) 0.02 X 10*3/uL (0.00-0.10); Basophils % (A) 0.1 %; Eosinophils # (A) 0.09 X 10*3/uL (0.04-0.35); Eosinophils % (A) 0.7 %; HCT 28.6 % (37.2-46.3); HGB 9.1 g/dL (12.0-15.0); Immature Grans, Automated 0.7 %; Lymphocytes # (A) 0.98 X 10*3/uL (0.90-5.00); Lymphocytes % (A) 7.3 %; MCH 31.9 pg (27.0-32.0); MCHC 31.8 g/dL (32.0-37.0); MCV 100.4 fL (80.0-97.0); Mean Platelet Volume 12.2 fL (9.5-12.2); Monocytes # (A) 1.89 X 10*3/uL (0.20-1.00); Monocytes % (A) 14.1 %; NRBC Per 100 WBC 0 /100 WBCS (0.0-0.0); Neutrophils # (A) 10.29 X 10*3/uL (1.80-7.70); Neutrophils % (A) 77.1 %; Platelet Count 236 X 10*3/uL (140-440); RBC 2.85 X 10*6/uL (4.10-5.20); RDW 13.9 % (11.5-14.5); WBC 13.36 X 10*3/uL (4.50-10.00)
[2022-07-09 06:10] LABS: Glucose,Whole Blood 142 mg/dL (70-110)
[2022-07-09] MEDS: carvediloL 12.5 MG TAB PO SCH (06:35)
[2022-07-09] MEDS: LEVOTHYROXINE 112 MCG TAB PO SCH (06:35)
[2022-07-09] MEDS: HYDROcodone/APAP 5-325MG 1 EACH TAB PO PRN (06:41)
[2022-07-09] MEDS ORDERED: MAGNESIUM HYDROXIDE 2,400 MG/10 ML CUP PO PRN (07:08)
[2022-07-09 07:46] LABS: Basophils % (A) 0 %; Eosinophils # (A) 0.2 k/uL (0-0.7); Eosinophils % (A) 2 %; Lymphocytes % (A) 10 %; MCH 31.7 pg (25.0-35.0); MCHC 33.3 g/dL (31.0-37.0); MCV 95.1 fL (80.0-100.0); Monocytes # (A) 0.6 k/uL (0-1.0); Monocytes % (A) 6 %; Neutrophils # (A) 7.9 k/uL (1.3-7.7); Neutrophils % (A) 80 %; Platelet Count 218 k/uL (150-450); RBC 2.84 m/uL (3.80-5.40); RDW 13.7 % (11.5-15.5); WBC 9.9 k/uL (3.8-10.6)
--- NOTE | 2022-07-09 07:53 | P.PN ---
Subjective Progress Note Date: 07/09/22 Principal diagnosis: Fall from standing Left hip fracture Patient seen and examined this morning. Patient is resting comfortably in bed. She currently denies any pain to her left hip. Patient had just been assisted back from bedside commode, she is tolerating activity well. Surgical dressing will be changed this morning. Surgical incision is well approximated with jg intact. Patient denies any numbness or tingling to left lower extremity. Patient has been afebrile, denies nausea/vomiting, or chest pain. Objective - Vital Signs Vital signs: Vital Signs Temp 99.1 F 07/09/22 07:10 Pulse 77 07/09/22 07:10 Resp 17 07/09/22 07:10 BP 155/80 07/09/22 07:10 Pulse Ox 91 L 07/09/22 07:10 FiO2 Intake & Output 07/08/22 07/09/22 07/09/22 18:59 06:59 18:59 Intake Total 200 Balance 200 Intake: Intake, IV Titration 200 Amount Sodium Chloride 0.9% 1, 200 000 ml @ 100 mls/hr IV . Q10H [facility] Rx#:[id number] Other: Voiding Method Indwelling Catheter Bedside Commode # Voids 1 - Exam Inspection: Negative for any open fractures, ecchymosis, significant erythema/ulcers. Surgical dressing is CDI over left hip. Sensation: Sensation is equal, symmetric, bilaterally intact throughout the upper and lower extremities Palpation: TTP to palpation over the left hip and thigh Range of motion: Patient does have full range of motion bilateral upper and right lower extremities on exam. Left lower extremity is limited due to pain and stiffness from recent surgical procedure. Motor: 5/5 in all major motor groups in the bilateral upper and right lower extremity, 4/5 in left lower extremity. Neurovascular: Radial pulse intact, 2+ bilaterally. Cap refill under 3 seconds in digits upper extremities - Labs CBC & Chem 7: 07/09/22 07:19 07/06/22 07:18 Labs: Abnormal Lab Results - Last 24 Hours (Table) 07/08/22 07/08/22 07/08/22 Range/Units 11:12 16:43 17:01 WBC 13.36 H (4.50-10.00) X 10*3/uL RBC 2.85 L (4.10-5.20) X 10*6/uL Hgb 9.1 L (12.0-15.0) g/dL Hct 28.6 L (37.2-46.3) % MCV 100.4 H (80.0-97.0) fL MCHC 31.8 L (32.0-37.0) g/dL Immature Gran # 0.09 H (0.00-0.04) X 10*3/uL Neutrophils # 10.29 H (1.80-7.70) X 10*3/uL Monocytes # 1.89 H (0.20-1.00) X 10*3/uL POC Glucose (mg/dL) 236 H 140 H (70-110) mg/dL 07/08/22 07/09/22 07/09/22 Range/Units 20:45 05:58 07:19 WBC (4.50-10.00) X 10*3/uL RBC 2.84 L (4.10-5.20) X 10*6/uL Hgb 9.0 L D (12.0-15.0) g/dL Hct 27.0 L (37.2-46.3) % MCV (80.0-97.0) fL MCHC (32.0-37.0) g/dL Immature Gran # (0.00-0.04) X 10*3/uL Neutrophils # 7.9 H (1.80-7.70) X 10*3/uL Monocytes # (0.20-1.00) X 10*3/uL POC Glucose (mg/dL) 192 H 142 H (70-110) mg/dL Assessment and Plan Assessment: Postop day 3: Left hip hemiarthroplasty Fall from standing Left hip fracture Plan: -Appreciate senior application security consultant and team management. -Activity: Ambulate QID, OOB all meals, up and about, limit lifting bending twisting to less than 5 lbs. Use walker or cane if needed for stability. -Daily PT/OT, increase ambulation strength and balance. -Pain control: Adequate at this time -Meds: reviewed -GI ppx: senna, Miralax -DC larson when up and about, bedside commode if needed -DVT PPX: Heparin -Hygiene: Shower today. Maintain dressing clean and dry. -Encourage IS 10x/hr -Dispo: Patient is cleared from orthopedic standpoint for discharge to subacute rehab when bed available. *I reviewed and discussed this case with my attending Dr. Alcala, whom has reviewed this chart and films and is in agreement with assessment and plan of care as outlined above. I have personally seen and examined the patient, performed the documentation and the assessment and plan as written. Number of minutes spent on the visit: 10m.
[2022-07-09] MEDS: PIOGLITAZONE 15 MG TAB PO SCH (09:38)
[2022-07-09] MEDS: MULTIVITAMINS, THERA 1 EACH TAB PO SCH (09:38)
[2022-07-09] MEDS: lisinopriL 10 MG TAB PO SCH (09:38)
[2022-07-09] MEDS: ASPIRIN 81 MG PO SCH (09:38)
[2022-07-09] MEDS: ENOXAPARIN 30 MG/0.3 ML SYRINGE SQ SCH (09:38)
[2022-07-09 11:13] LABS: Glucose,Whole Blood 156 mg/dL (70-110)
[2022-07-09] MEDS ORDERED: FUROSEMIDE 10 MG/ML 4 ML VIAL IV STA (11:16)
[2022-07-09 14:58] VITALS: BP 138/70; PULSE 71; TEMP 97.4
--- NOTE | 2022-07-09 17:47 | P.PN ---
Progress Note - Text Progress Note Date: 07/09/22 - Chief Complaint Left femur fracture Hospital course: This is a pleasant 86-year-old patient, who follows Dr. Solis. Chronic stable medical conditions include coronary artery disease, diabetes, hyperlipidemia, hypertension, hypothyroid. At baseline uses a walker. Patient had stuff in both her hands was started on get up on a curb loss to balance and fell backwards. She fell on her left hip. Was unable to get up afterwards. No loss of consciousness. Did not hit her head. At her baseline she is able to get about. No chest pain or shortness of breath. Limited range of motion left hip. Patient received morphine for pain earlier. Sleepy but able to awake and answer questions 07/07/2022: Up in a chair. Had a breakfast. Pain control. No nausea vomiting. Answering questions. 07/08/2022: Patient became hypoxic last night. This morning on 3 L nasal cannula. No obvious tachypnea. No fever no chills. No cough. Doppler ultrasound being ordered to rule out DVT. Oral intake about 50% 07/09/2022: Hypoxia better this morning. On 2 L of FiO2. X-ray had showed fluid overload. 40 mg IV Lasix given. Informed the nurse patient can be discharged with 2 days of oral Lasix. Continue incentive spirometry. CTA had shown pulmonary edema. Pulmonary embolism ruled out Past medical history to include: COPD, hypertension, hyperlipidemia, hypothyroidism thyroidism, diabetes mellitus type 2, chronic compression fracture L1, hiatal hernia, GERD, chronic kidney dysfunction, uses a walker at baseline Social history: Does smoke in the past. Alcohol rarely. Lives with her [id number]. Family history: Reviewed, noncontributory to presentation Physical examination: VITAL SIGNS: 99.1, 77, 17, 155/80, 91% on 1 L GENERAL: Awake, reclining in bed. EYES: Pupils equal, conjunctiva normal. NECK: JVD unable to assess; masses not palpable. HEART: First and second heart sounds are normal; no edema. LUNGS: Respiratory rate normal; decreased breath sounds ABDOMEN: Soft, nontender, liver spleen not palpable, no masses palpable. 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 Vascular congestion COVID 19: Not detected 07/06/2022: White count 11.2 hemoglobin 10.4 platelets 2626 potassium 4.1 creatinine 0.8 Admission labs: Hemoglobin 12.1 creatinine 0.94 Chest x-ray film personally reviewed by me-possible interstitial prominence. Some findings around the left shoulder. X-ray: Comminuted left femoral neck fracture CT brain: Cerebral atrophy and nonspecific white matter changes. EKG tracing personally reviewed by me-normal sinus rhythm Assessment and plan: -Acute hypoxic respiratory failure. From pulmonary edema from IV fluids Negative for DVT and PE. IV Lasix 40 mg given. -Acute left comminuted femoral neck fracture secondary to fall Left hip hemiarthroplasty by Dr. Alcala on July 06. -Coronary artery disease Coreg 12.5 by mouth twice a day. Aspirin -Hyperlipidemia Lipitor 20 mg daily at bedtime -Chronic compression fracture L1 -Hiatal hernia with GERD PPI -Essential Hypertension Lisinopril 10 mg daily, Coreg 12.5 by mouth twice a day -Hypothyroidism Synthroid 112 g a day -Diabetes mellitus type 2 , oral hypoglycemic Actos. Follow Accu-Cheks. -Vitamin B12 deficiency B12 thousand micrograms daily -Chronic gait dysfunction, uses a walker at baseline -DO NOT RESUSCITATE Had 2 days of oral Lasix. Stable for discharge to rehab. Thank you Dr. Alcala BMP: 2 days
--- NOTE | 2022-07-10 09:49 | P.DS ---
Providers Date of admission: 07/05/22 20:03 Expected date of discharge: 07/09/22 Attending physician: Rome Gorman DO Consults: 07/05/22 20:03 Consult Physician Routine Consulting Provider: Gary Bell Reason/Comments: medical management Do you want consulting provider notified?: Already Contacted Primary care physician: [facility] Course: Hospital Course: The patient was evaluated preoperatively and found to have the diagnosis of left hip fracture. They underwent appropriate preoperative care and were willing to undergo the intended procedure. They underwent a successful left hip hemiarthroplasty, were recovered appropriately and sent to the floor. While on the floor they worked with physical therapy, occupational therapy and nursing to enhance their recovery experience. Their pain was well controlled through their stay and they were started on appropriate medications, DVT ppx modalities, activity and dietary needs. Daily labs were monitored closely, and transfusions were only used when necessary. Medicine as well as other consulting services have made their input and have helped with our team approach and multidisciplinary care. PT milestones have been met and passed and they have made the recommendation of subacute rehab for this patient and treating providers agree with this care path. The patient will be discharged home with appropriate medications, instructions and follow-up information and in stable condition. Patient Condition at Discharge: Good Plan - Discharge Summary Discharge Rx Participant: No New Discharge Prescriptions: New HYDROcodone/APAP 5-325MG [[place] 5-325] 1 tab PO Q6HR PRN #21 tab PRN Reason: Pain Enoxaparin [Lovenox] 30 mg SQ DAILY #28 each Furosemide [Lasix] 40 mg PO DAILY #2 tablet Sennosides/Docusate Sodium [Senna Plus 8.6-50 mg Softgel] 1 each PO DAILY #20 cap Continue Levothyroxine Sodium [Synthroid] 112 mcg PO DAILY Pioglitazone [Actos] 15 mg PO DAILY lisinopriL [Zestril] 10 mg PO DAILY carvediloL [Coreg] 12.5 mg PO BID Atorvastatin [Lipitor] 20 mg PO HS Multivitamins, Thera [Multivitamin (formulary)] 1 tab PO DAILY Acetaminophen Tab [Tylenol] 325 - 650 mg PO Q4H PRN PRN Reason: Pain Or Fever > 100.5 Aspirin [[place]lliott Aspirin EC] 81 mg PO DAILY Discharge Medication List Levothyroxine Sodium [Synthroid] 112 mcg PO DAILY 01/08/14 [History] Pioglitazone [Actos] 15 mg PO DAILY 09/24/17 [History] carvediloL [Coreg] 12.5 mg PO BID 09/24/17 [History] lisinopriL [Zestril] 10 mg PO DAILY 09/24/17 [History] Atorvastatin [Lipitor] 20 mg PO HS 09/20/18 [History] Multivitamins, Thera [Multivitamin (formulary)] 1 tab PO DAILY 01/21/19 [History] Acetaminophen Tab [Tylenol] 325 - 650 mg PO Q4H PRN 07/05/22 [History] Aspirin [Elliott Aspirin EC] 81 mg PO DAILY 07/05/22 [History] Enoxaparin [Lovenox] 30 mg SQ DAILY #28 each 07/08/22 [Rx] HYDROcodone/APAP 5-325MG [[place] 5-325] 1 tab PO Q6HR PRN #21 tab 07/08/22 [Rx] Sennosides/Docusate Sodium [Senna Plus 8.6-50 mg Softgel] 1 each PO DAILY #20 cap 07/08/22 [Rx] Furosemide [Lasix] 40 mg PO DAILY #2 tablet 07/09/22 [Rx] Follow up Appointment(s)/Referral(s): Mesfin Solis DO [Primary Care Provider] - 1-2 days Enriqueta Hill NPC [Nurse Practitioner] - 2 Weeks José Valdez, [NON-STAFF] - As Needed Patient Instructions/Handouts: Precautions after Total Joint Replacement Surgery (DC) Activity/Diet/Wound Care/Special Instructions: Maintain incision clean and dry, may leave open to air once there is no drainage. Patient may shower, allow soap and water to run over incision and pat dry. WBAT with walker Continue with PT/OT Follow up in office in 2 weeks BMP - 2 days Discharge Disposition: TRANSFER TO SNF/ECF
== END 2022-07-09 16:44 | DRG 521 ==
LOC: EC 17:32 → 4SSUR 20:03
PROVIDERS: ADMIT Orthopaedic Surgery Hand Surgery; ATTEND Orthopaedic Surgery Hand Surgery
PROC: 0SRS03A Replacement of Left Hip Joint, Femoral Surface with Ceramic Synthetic Substitute, Uncemented, Open Approach (ICD-10-PCS; principal; 2022-07-06 09:25)
DX: S72.002A Fracture of unspecified part of neck of left femur, initial encounter for closed fracture (principal); J81.0 Acute pulmonary edema; J96.01 Acute respiratory failure with hypoxia; M48.56XA Collapsed vertebra, not elsewhere classified, lumbar region, initial encounter for fracture; E11.22 Type 2 diabetes mellitus with diabetic chronic kidney disease; I12.9 Hypertensive chronic kidney disease with stage 1 through stage 4 chronic kidney disease, or unspecified chronic kidney disease; G31.9 Degenerative disease of nervous system, unspecified; J44.9 Chronic obstructive pulmonary disease, unspecified; E03.9 Hypothyroidism, unspecified; N18.9 Chronic kidney disease, unspecified; E78.5 Hyperlipidemia, unspecified; I25.10 Atherosclerotic heart disease of native coronary artery without angina pectoris; M15.9 Polyosteoarthritis, unspecified; E53.8 Deficiency of other specified B group vitamins; K21.9 Gastro-esophageal reflux disease without esophagitis; K44.9 Diaphragmatic hernia without obstruction or gangrene; E87.70 Fluid overload, unspecified; R26.9 Unspecified abnormalities of gait and mobility; W18.30XA Fall on same level, unspecified, initial encounter; Z66 Do not resuscitate; Z96.612 Presence of left artificial shoulder joint; Z20.822 Contact with and (suspected) exposure to COVID-19; Y92.481 Parking lot as the place of occurrence of the external cause; Z91.048 Other nonmedicinal substance allergy status; Z87.891 Personal history of nicotine dependence; Z88.2 Allergy status to sulfonamides; Z79.899 Other long term (current) drug therapy; Z79.82 Long term (current) use of aspirin; Z79.84 Long term (current) use of oral hypoglycemic drugs; Z79.890 Hormone replacement therapy; Z87.81 Personal history of (healed) traumatic fracture
CPT/HCPCS: 36415; 70450; 71045; 71275; 73501; 73502; 80048; 85025; 85610; 85730; 86850; 86900; 86901; 87635; 88305; 88311; 93970; 96361; 96374; 96375; 96376; 99285